=== PATIENT | male | born 1955 | race African-American/Black ===

== ENCOUNTER 2019-11-23 08:15 | Inpatient (IN) | payer OTHER ==
[2019-11-23 08:34] LABS: Actual Bicarbonate (HCO3a) 21.5 mEq/L (22-28); Analyzer IN Cardio ER; Base Excess (BEa) -5.6 mEq/L (-2.0 to +3.0); CO2 Tension 47.5 mmHg (35.0-45.0); Calcium, Ionized (arterial) 1.22 mmol/L (1.12-1.30); Hemoglobin (Hb) 16.6 g/dL (14.0-18.0); Potassium - ABG Lab 3.45 mmol/L (3.70-5.30); pH, Arterial 7.27 (7.35-7.45)
[2019-11-23 08:35] LABS: ALV-art Gradient 305.425 (0-20); Puncture Site RBA
[2019-11-23] MEDS ORDERED: fentaNYL Citrate/PF 2,000 MCG in Sodium Chloride 0.9% 60 ML IV SCH (08:53)
[2019-11-23] MEDS ORDERED: Aspirin 300 MG Suppository ONE (08:55)
[2019-11-23] MEDS ORDERED: Heparin 25,000 units/D5W 500 ML ONE (08:55)
--- NOTE | 2019-11-23 09:07 | RAD ---
PORTABLE CHEST: Date: 11/23/2019 PROVIDED CLINICAL HISTORY: Chest pain. FINDINGS: Comparison made with study dated 11/23/2019 at 0657 hours. Interval placement of enteric catheter, tip of which terminates over the left upper quadrant. Endotra cheal tube persists, tip in the region of the thoracic inlet. Heart and mediastinal contours are unch anged. No focal consolidation, pleural fluid, or pneumothorax apparent, with limitations due to the s upine nature of the study. IMPRESSION: Interval placement of enteric catheter as above. POS: KAYLA
[2019-11-23 09:46] LABS: Bilirubin Negative (Negative); Blood, Urine 2+ (Negative); Clarity Turbid (Clear); Glucose, Urine (Dipstick) 150 mg/dL (Negative); Ketone, Urine Negative (Negative); Leukocyte Negative Leu/uL (Negative); Nitrite Negative (Negative); Protein, Urine (Dipstick) 300 mg/dL (Neg-Trace); RBC/HPF Greater than 50 HPF (0-3); Specific Gravity, Urine 1.015 (1.002-1.036); Squamous Epithelial 0-3 HPF (0-3); Urobilinogen Normal mg/dL (Less than 2); WBC/HPF 21-50 HPF (0-3)
[2019-11-23 09:54] LABS: Bacteria/HPF 2+ HPF (None Seen)
[2019-11-23 09:55] LABS: Sperm/HPF 2+ HPF (None Seen)
[2019-11-23] MEDS ORDERED: Aggrastat 12.5 MG/250 ML 250 ML ONE (10:34)
[2019-11-23] MEDS ORDERED: Furosemide 40 MG/4 ML VIAL ONE (10:34)
[2019-11-23] MEDS ORDERED: Iopamidol 370 76% 50 ML VIAL FS ONE (11:20)
[2019-11-23] MEDS ORDERED: Iopamidol 370 76% 100 ML VIAL ONE (11:20)
[2019-11-23] MEDS ORDERED: Nitroglycerin 0.4 MG TAB (25 Tab Bottle) SL PRN (11:40)
[2019-11-23] MEDS ORDERED: Aggrastat 12.5 MG/250 ML 250 ML IVPB SCH (11:45)
[2019-11-23] MEDS ORDERED: TICAGRELOR 90 MG TABLET PO SCH ×2 (11:45→21:00)
[2019-11-23] MEDS ORDERED: Potassium Chloride 10 MEQ in Premix Bag 1 BAG IVPB SCH (12:00)
[2019-11-23] MEDS ORDERED: TICAGRELOR 90 MG TABLET ONE (12:04)
[2019-11-23] MEDS ORDERED: Ondansetron PF 4 MG/2 ML Vial IVP PRN (12:21)
[2019-11-23] MEDS ORDERED: Senokot S 8.6-50 MG TAB PO PRN (12:21)
[2019-11-23] MEDS ORDERED: Acetaminophen 650 MG Suppository PR PRN (12:21)
[2019-11-23] MEDS ORDERED: HYDROcodone/Acetaminophen 5/325 mg Tablet PO PRN (12:21)
[2019-11-23] MEDS ORDERED: Bisacodyl 10 MG SUPP PR PRN (12:21)
[2019-11-23] MEDS ORDERED: Ventilator Sedation Protocol 1 EACH FS ONE (12:24)
[2019-11-23] MEDS ORDERED: Electrolyte Replacement Protoc 1 EACH EACH FS PRN (12:24)
[2019-11-23] MEDS ORDERED: Dextrose 50% Abboject 50 ML SYRINGE SLOW IVP PRN (12:25)
[2019-11-23] MEDS ORDERED: Dextrose 5% in Water 1,000 ML IV PRN (12:25)
[2019-11-23] MEDS ORDERED: HumaLOG 300 UNITS/3 ML VIAL SC PRN ×2 (12:25)
--- NOTE | 2019-11-23 12:27 | CON ---
DATE OF CONSULTATION: INDICATION FOR ADMISSION: Acute myocardial infarction. HISTORY OF PRESENT ILLNESS: Mr. Angelo Johnson is a 64-year-old gentleman that I originally saw back in 2017, at which time he presented to the emergency room with a isz-AS-wqltyyq elevation myocardial infarction. He underwent cardiac catheterization at that time, was found to have severe 3-vessel coronary artery disease and left main stenosis. He underwent bypass surgery by Dr. Olguin with a ORELLANA to the left anterior descending artery and saphenous vein graft to the obtuse marginal branch of the left circumflex, also to the distal right coronary artery and to the PDA. The distal right coronary artery and PDA had one proximal anastomosis off the aorta and the PDA was piggybacked off the distal right coronary artery graft. It was noted at the time of the operation that the saphenous vein grafts were small vessels. Since that time he has not been seen by us. He has been followed by the [place] and has not returned for followup from our standpoint, but [facility] I talked to his . Actually this morning, he woke his around 6 a.m. this morning complaining of chest pain. She took him to the emergency room in [place] where he subsequently went into ventricular fibrillation, required resuscitation, was intubated and is now here in our facility. He is intubated, sedated, and the information is obtained from the old records, as well as from speaking to the . At this time, his blood pressure is 108/61, heart rate is 75, O2 saturation 97%, respiratory rate is 18 on the ventilator. He was trying to override the ventilator earlier and was given some sedation, now has been given Fentanyl. Also, in the emergency room in [place], I believe he was started on IV amiodarone due to ventricular fibrillation and also had an episode of atrial fibrillation. He has converted back to sinus rhythm. He does have a history in the past of intermittent atrial fibrillation also. Since that time, he has remained relatively stable. He has been given IV heparin here, 4000 units in the emergency room. I believe he was given also epinephrine in the emergency room in [place] as well as Atrovent. At this time, the EKG shows a sinus rhythm with a bigeminal type pattern with PVCs and some nonspecific ST-segment changes inferiorly, does not appear to be ST-segment elevation at this time, but given the fact that the patient does have severe coronary artery disease and had ventricular fibrillation, it is best to take him to the cardiac bean sprout laborer for evaluation of the coronary arteries with the bypass grafts. Also please note previously, his ejection fraction was somewhere between 35% to 40% in 2017, at the time of his bypass surgery, and we have had no further records since that time. We will try to obtain records from the IN in [place]. PAST MEDICAL HISTORY: Significant for hypertension, dyslipidemia, gastroesophageal reflux disease, obstructive sleep apnea, supposedly wears a CPAP mask. He has obesity. He has had a benign cyst removal of the left hand over 25 years ago. He has had bypass surgery with severe coronary artery disease. Also noted was elevated blood sugars. ALLERGIES: NONE. SOCIAL HISTORY: He did not smoke, however he did have a history of secondhand smoke exposure. He had occasional alcohol use. FAMILY HISTORY: Noncontributory for any early heart disease. REVIEW OF SYSTEMS: Unobtainable. When I spoke to the as previously said, he had not had any recent problems, any GI problems, nausea, vomiting, diarrhea, or any blood anywhere or hematemesis. He has had no pulmonary complaints as far as she is concerned. He does have some reflux. He does have occasional cough which he says is related to the reflux and had no other significant complaints. MEDICATION LIST: Prior to admission, he was taking 1. Aspirin 81 mg a day. 2. Atorvastatin 80 mg a day. 3. He uses fluticasone nasal spray. 4. Furosemide 20 mg once a day. 5. Loratadine 10 mg once a day. 6. Metoprolol 25 mg half a tab twice a day. 7. Pantoprazole 40 mg a day. 8. Potassium 20 mEq once a day. PHYSICAL EXAMINATION: GENERAL: Reveals a sedated elderly gentleman who is on the ventilator. VITAL SIGNS: Blood pressure is 108/61. Please note, previously in [place], the blood pressure was listed as 168/107, heart rate is now 75, respiratory rate is 18, O2 saturations more than 75%. HEENT: Show the head to be normocephalic and atraumatic. I do not hear any significant bruits at this time. However, there is increased noise from the airways and the ventilator, making this certainly almost impossible to listen to the carotid arteries. CHEST: He has some scattered rales anteriorly, but this may be upper airway noise. He has good air flow. CARDIOVASCULAR: Heart sounds are somewhat distant. I cannot hear any significant murmurs, heaves, thrills, bruits, or rubs. He has a well-healed midline surgical incision after median sternotomy. ABDOMEN: I do not feel any palpable masses. Positive bowel sounds are present. EXTREMITIES: Show no clubbing, cyanosis, or edema. I cannot palpate pedal pulses. Popliteal pulses were present. NEUROLOGIC: Again, the patient is sedated. LABORATORY DATA: Show a sodium of 141, potassium 3.3, bicarb is 14, chloride was 106, BUN 14, creatinine 2.02, his blood sugar was 202. WBC of 13.5, platelet count 211, hemoglobin 15.2. INR is 1.1. His CK was 542 with MB of 15.5, and troponin I was 0.072. EKG as noted above. Chest x-ray does not show any acute changes, perhaps some mild congestion, but otherwise there were no significant effusions or masses noted in the chest x-ray by my interpretation. Does appear to be some cardiomegaly and there is evidence of previous bypass surgery. IMPRESSION: 1. At this time, elderly gentleman with a history of severe 3-vessel coronary artery disease and left main stenosis, who underwent bypass surgery in 2017. He has been followed by the [place], but we have not seen this gentleman since his bypass surgery after he was discharged from the hospital. He has been followed by at [facility]. At this time, in the best interest of the patient probably to proceed with cardiac catheterization for full evaluation of the coronary arteries to determine whether or not there is any graft's closure or any further progression of disease or stenosis that may be correctable by angioplasty or stent placement. If not, the patient will be continued on medical management. I did discuss this issue with his and explained to her that he does have renal insufficiency and cardiac catheterization could cause renal failure, which would further necessitate dialysis, but I explained to her the procedure and the risks to include bleeding, infection, possible myocardial infarction, cerebrovascular accident, renal insufficiency, allergic contrast reaction, even the possibility of and she understands. We will need to proceed with the cardiac catheterization in rather urgent basis. 2. History of hypertension. Blood pressure was high earlier this morning, but after being given Propofol here in the emergency room and other medications, his blood pressure is now 108/61. 3. Dyslipidemia. He has been on statins. We will continue these medications once we have finished cardiac catheterization. 4. Gastroesophageal reflux disease. He has also been on H2 blockers. We will continue these medications. We will need to determine whether or not he continues to use his CPAP mask for his obstructive sleep apnea. 5. Obesity. 6. Chronic kidney disease with a creatinine of 2.02 today. We will certainly need to monitor this very carefully and may need to have a renal consult. 7. History of coughing, most likely associated with gastroesophageal reflux disease. 8. History of cardiomyopathy in the past. We will need to evaluate his left ventricular systolic function at the cardiac catheterization or by echocardiogram after the procedure. At this time, we will continue with the plan for urgent cardiac catheterization. Job ID: [id number]
[2019-11-23] MEDS ORDERED: Morphine 2 MG/ML VIAL SLOW IVP PRN (12:35)
[2019-11-23] MEDS ORDERED: Propofol 1,000 MG/100 ML VIAL IV PRN (12:35)
[2019-11-23] MEDS ORDERED: Propofol BOLUS 1,000 MG/100 ML VIAL IV PRN (12:35)
[2019-11-23] MEDS ORDERED: DISCONTINUE PREVIOUS NARCOTIC PAIN MEDICATIONS AND BENZODIAZEPINES FS SCH (12:35)
[2019-11-23] MEDS ORDERED: Fentanyl BOLUS 250 ML IVPB PRN (12:35)
--- NOTE | 2019-11-23 13:36 | CON ---
DATE OF CONSULTATION: HISTORY OF PRESENT ILLNESS: Mr. Johnson is a 64-year-old with history of coronary artery bypass grafting. He apparently arrested in [place], was transferred here. He is undergoing emergent cath. I was consulted for assist in his management in the Critical Care Unit. He was examined in the recovery room. Hemodynamics postcatheterization were stable at the time of exam. PAST MEDICAL HISTORY: Remarkable for, 1. An ischemic cardiomyopathy with ejection fraction in 2017 at 35% to 40%. 2. History of hypertension. 3. Lipid disorder. 4. Reflux disease. 5. Sleep apnea. 6. History of hand surgery for cyst 25 years ago. 7. History of coronary artery bypass grafting. 8. Diabetes. SOCIAL HISTORY: He is a nonsmoker and nondrinker. ALLERGIES: HE HAS NO DRUG ALLERGIES. FAMILY HISTORY: Negative for lung disease in early age according to old records. REVIEW OF SYSTEMS: Could not be obtained. PHYSICAL EXAMINATION: VITAL SIGNS: His blood pressure is in 120 range. Heart rate, he is in sinus rhythm. Respiratory rate is per mechanical ventilation. HEENT: Pupils react. Sclerae are anicteric. NECK: Supple. LUNGS: Clear. HEART: Regular rhythm. S1 and S2 are normal. ABDOMEN: Soft and nontender. EXTREMITIES: Without clubbing, cyanosis or edema. DIAGNOSTIC DATA: Chest x-ray today showed no infiltrates. IMPRESSION: Status post cardiac arrest secondary to coronary artery disease, now status post emergent cardiac catheterization with stenting. PLAN: Mechanical ventilation until we determine what his neurological status will be. This may take several days. CRITICAL CARE TIME: 30 minutes. Job ID: [id number]
[2019-11-23] MEDS ORDERED: Propofol 1,000 MG/100 ML VIAL IV ONE (13:56)
[2019-11-23 14:20] LABS: Troponin I 1.222 ng/mL (< 0.028)
--- NOTE | 2019-11-23 15:01 | CON ---
DATE OF CONSULTATION: 11/23/2019 ADDENDUM: Please note, the patient arrived to the emergency room, and after evaluation and discussion with the who decided to take the patient to the cardiac orthodontic lab technician. There was some delay in getting the patient to the cardiac orthodontic lab technician as there was a patient already on the table and there was no other cardiac staff available at the time to run 2 rooms. We also then had to wait for anesthesia as there were 2 codes going on in the intensive care unit. The patient had already been intubated and there was no one to run the anesthesia or the ventilator for the patient. All this required some time in getting the patient to the cardiac orthodontic lab technician. Once he arrived in the cardiac orthodontic lab technician, we proceeded with cardiac catheterization and intervention. He was found to have a totally occluded right saphenous vein graft, which was opened. The other vessel showed diffuse disease and also the ejection fraction also was severely compromised. Job ID: [id number]
[2019-11-23] MEDS ORDERED: Furosemide 20 MG/2 ML VIAL ONE (15:10)
--- NOTE | 2019-11-23 19:53 | HP ---
REASON FOR ADMISSION: Status post cardiac arrest; coronary artery disease, status post catheterization with stenting; acute respiratory failure with hypoxia. HISTORY OF PRESENTING ILLNESS: The patient initially was taken to [facility] Emergency Room after the patient woke his with chest pain. They apparently were at the emergency room at around 6:15 a.m. Within 30 minutes or so, the patient had a code blue with cardiac arrest with the patient going into V-tach, VFib. CPR was initiated for around 15 minutes or so. He was administered two shocks and epi. Eventually circulation was established and got intubated. EKG done prior to cardiac arrest showed T inversion in the lateral leads V4, V5, V6. Post cardiac arrest , the patient has had T inversions in the same leads along with V1, V2, V3. He has had frequent PVCs. On arrival here, the patient has had consultation with Dr. Varghese in the ER and was taken for cardiac cath. He was found to have totally occluded right saphenous vein graft, which was opened. The other vessel showed diffuse disease , and ejection fraction was also severely compromised. His official cath report is pending. I am seeing the patient after he has had cardiac catheterization and is currently in PACU, awaiting a bed in ICU. In the morning after cardiac arrest, the patient was given amiodarone 300 mg IV push, then was placed on a drip. He has also had 2 doses of magnesium sulfate IV given. Currently, he is intubated and is sedated. PAST MEDICAL AND SURGICAL HISTORY: History of CABG done in 2017, hypertension, dyslipidemia, GERD, obstructive sleep apnea, obesity, prior stent prior to CABG , and a benign cyst removed from his left hand 23 years back. CURRENT MEDICATIONS: Unclear as he was discharged on the following medications after he has had CABG in August 2016. He was sent home on: 1. Lipitor. 2. Plavix. 3. Protonix. 4. Aspirin 81 mg daily. 5. Carvedilol 6.25 mg twice daily. 6. Lasix 20 mg daily. 7. K-Dur 10 mEq p.o. daily then. We will try to obtain accurate med list from his . ALLERGIES: NO KNOWN DRUG ALLERGIES. PERSONAL HISTORY: Per prior records, he does not smoke. Occasionally drinks alcohol. Lives with his . FAMILY HISTORY: There is a sister who has had history of breast cancer. Father had history of stomach cancer. CODE STATUS: Presumed to be full at present. We will address this once the arrives and the patient wakes up. REVIEW OF SYSTEMS: Cannot be obtained as the patient is currently sedated and is on ventilator. PHYSICAL EXAMINATION: GENERAL: The patient is a 64-year-old male who is currently on the ventilator and is not in any distress. VITAL SIGNS: On the arterial line, the patient's blood pressure is 110/74, pulse 60 per minute, respiratory rate 16 per minute, saturating 100% on 60% FiO2 on the ventilator. NECK: Supple. No elevated JVD. HEENT: Eyes, pupils are 3 mm, very sluggishly reacting to light. Oral cavity, the patient is orally intubated up to 25 cm up to the incisor. CARDIOVASCULAR: S1 and S2 heard. Regular rhythm. RESPIRATORY: Air entry 1+ bilateral. Scattered rhonchi plus. ABDOMEN: Soft. Bowel sounds heard. No tenderness, rigidity, or guarding. EXTREMITIES: No peripheral edema or calf tenderness. VASCULAR SYSTEM: Peripheral pulses 1+ bilateral. No ischemic ulcerations or gangrene. CENTRAL NERVOUS SYSTEM: No obvious focal deficits noted. PSYCHIATRIC: Cannot be assessed as the patient is currently intubated and sedated. LABORATORY DATA: White count of 13, H and H of 15 and 49, platelet count 211 with 24% neutrophils, 66% lymphocytes. MCV is 99. PT, INR, PTT within normal limits. Blood gas done at 8:28 a.m. shows a pH of 7.27, pCO2 47, pO2 60. Serum bicarb was 14, potassium 3.3, BUN 14, creatinine 2, serum glucose 202. AST 91, ALT 51, alkaline phosphatase 94. CK levels 542. Troponin I peaked up to 0.15, CK-MB 15. Albumin is 3.6. DIAGNOSTIC STUDIES: EKG done at 6:26 a.m. shows sinus rhythm at 99 beats with frequent PVCs. There is T-wave inversion in V4, V5, V6. A repeat EKG done post cardiac arrest at 8:21 a.m. shows sinus rhythm at 83 beats per minute with T inversions seen in anterolateral leads. QRS duration is 114 milliseconds, corrected QT is 444 milliseconds. Chest x-ray done at 8:24 a.m. shows endotracheal tube in appropriate position. CLINICAL IMPRESSION AND PLAN: The patient will be admitted to intensive care unit, status post cardiac arrest with coronary reperfusion with cardiac catheterization done by Dr. Varghese. He has had coronary artery bypass graft done in 2017 and has had occlusion of vessels including grafts. Likely, the patient is noncompliant with medication and diet. He is currently on aspirin, Lipitor, Lasix, small dose of Lopressor, and Brilinta. He has a central line and arterial line as well. Echo with 2D Doppler has been ordered. I have spoken to Dr. Nuno for pulmonary consultation as well. We will continue to closely monitor him in intensive care unit. We will also continue his amiodarone drip. Likely, the patient might need a biventricular pacer with automatic implantable cardioverter-defibrillator in view of sudden cardiac arrest with ischemic coronary artery disease. We will await echo with 2D Doppler for left ventricular function as well. Job ID: [id number] MTDD
[2019-11-23] MEDS: Furosemide 20 MG/2 ML VIAL SLOW IVP SCH (19:57)
[2019-11-23] MEDS: Atorvastatin Calcium 40 MG TAB PO SCH (21:16)
[2019-11-23] MEDS: TICAGRELOR 90 MG TABLET PO SCH (21:17)
[2019-11-23] MEDS: Famotidine/PF 20 mg/2ml Vial SLOW IVP SCH (21:17)
[2019-11-23] MEDS: Metoprolol Tartrate 25 MG TAB PO SCH (21:17)
[2019-11-24] MEDS: Amiodarone 450 MG in Dextrose 5% in Water 250 ML IVPB SCH ×2 (00:03→16:30)
[2019-11-24] MEDS: fentaNYL Citrate/PF 2,000 MCG in Sodium Chloride 0.9% 60 ML IV SCH (02:47)
[2019-11-24 04:00] LABS: Band 1 % (5-11); Eosinophils 1 % (0-10); Hemoglobin 14.2 g/dL (14.0-18.0); Lymphocytes 23 % (21-51); MDiff Complete? YES; Mean Corpuscular HGB CONC 32.3 g/dL (32.0-36.0); Mean Corpuscular Hemoglobin 31.1 pg (27.0-31.0); Mean Corpuscular Volume 96.2 fL (78.0-98.0); Mean Platelet Volume 8.9 fL (7.4-10.4); Monocytes 9 % (0-10); Neutrophil 66 % (42-75); Platelet Count 198 thou/uL (130-400); Platelet Morphology Comment Appears Adequate; RBC Distribution Width 12.3 % (11.5-14.5); Red Blood Cell (RBC) Count 4.58 mill/uL (4.70-6.10); White Blood Cell (WBC) Count 10.3 thou/uL (4.8-10.8)
[2019-11-24 04:10] LABS: ALT (SGPT) 56 U/L (8-55); AST (SGOT) 55 U/L (5-34); Albumin 3.3 g/dL (3.4-4.8); Alkaline Phosphatase 93 U/L (40-110); Anion Gap 11 mmol/L (10-20); BUN (Urea Nitrogen) 20 mg/dL (8.4-25.7); Bilirubin, Total 0.6 mg/dL (0.2-1.2); Calc. Creatinine Clearance 43 mL/min (70-130); Calcium 8.5 mg/dL (7.8-10.44); Carbon Dioxide 25 mmol/L (23-31); Cardiac Risk 4.3 (Less than 4.5); Chloride 107 mmol/L (98-107); Cholesterol 187 mg/dl (< 200 Desired); Estimated GFR-MDRD 34; Globulin 3.1 g/dL (2.4-3.5); Glucose 108 mg/dL (80-115); HDL Cholesterol 44 mg/dL (>60 Neg Risk); LDL Cholesterol, Calculated 101 mg/dL; Potassium 4.2 mmol/L (3.5-5.1); Protein, Total 6.4 g/dL (5.8-8.1); Sodium 139 mmol/L (136-145); Triglycerides 210 mg/dL (Less than 150)
[2019-11-24] MEDS: Furosemide 20 MG/2 ML VIAL SLOW IVP SCH ×2 (06:04→14:44)
[2019-11-24 07:20] LABS: Base Excess (BEa) -1.5 mEq/L (-2.0 to +3.0); CO2 Tension 33.8 mmHg (35.0-45.0); Calcium, Ionized (arterial) 1.13 mmol/L (1.12-1.30); Carboxyhemoglobin (COHb) 0.3 gm% (0.0-3.0); Hemoglobin (Hb) 15.2 g/dL (14.0-18.0); O2 Tension (PaO2), arterial 77.7 mmHg (> 80.0); Potassium - ABG Lab 3.76 mmol/L (3.70-5.30); pH, Arterial 7.43 (7.35-7.45)
[2019-11-24 07:21] LABS: Puncture Site ALINE
--- NOTE | 2019-11-24 08:33 | RAD ---
PORTABLE CHEST: DAET: 11/24/2019. PROVIDED CLINICAL HISTORY: Respiratory insufficiency. FINDINGS: Development of focal, wedge-shaped parenchymal opacity in the right suprahilar region, presumably ref lecting subsegmental atelectasis. Interval placement of right subclavian central line, the tip of wh ich projects over the expected location of RA. Additional significant interval change with respect t o the prior examination is not apparent. IMPRESSION: As above. POS: KAYLA
[2019-11-24] MEDS ORDERED: Aspirin 325 mg Enteric Coated Tablet PO SCH (09:00)
[2019-11-24] MEDS: Metoprolol Tartrate 25 MG TAB PO SCH ×2 (09:17→20:39)
[2019-11-24] MEDS: Famotidine/PF 20 mg/2ml Vial SLOW IVP SCH ×2 (09:18→20:39)
[2019-11-24] MEDS: TICAGRELOR 90 MG TABLET PO SCH ×2 (09:18→20:38)
[2019-11-24] MEDS: Lorazepam 2 MG/ML VIAL SLOW IVP PRN ×2 (12:20→17:34)
--- NOTE | 2019-11-24 13:03 | PDOC.HOSPP ---
- Subjective Encounter Date: 11/24/19 Encounter Time: 11:15 Subjective: is on vent follows verbal stimuli is moving all extremities - Objective Vital Signs & Weight: Vital Signs (12 hours) Temp Pulse Resp 11/24/19 10:00 16 11/24/19 09:59 83 11/24/19 08:00 99.0 F 16 11/24/19 07:45 79 11/24/19 06:00 18 11/24/19 04:00 99.1 F 18 11/24/19 02:00 18 Weight Admit Weight 213 lb Weight 213 lb 10.047 oz Most Recent Monitor Data Heart Rate from ECG 75 NIBP 81/62 NIBP BP-Mean 68 Respiration from ECG 12 SpO2 100 I&O: 11/23/19 11/24/19 11/25/19 06:59 06:59 06:59 Intake Total 652.8 Output Total 600 850 Balance 52.8 -850 Result Diagrams: 11/24/19 03:27 11/24/19 03:27 Additional Labs: Accuchecks 11/24/19 11/23/19 11/23/19 03:34 22:32 19:14 POC Glucose 105 122 H 115 H Hospitalist ROS - Medication Medications: Active Medications Generic Name Dose Route Start Last Admin Trade Name Freq PRN Reason Stop Dose Admin Atorvastatin Calcium 80 mg 11/23/19 21:00 11/23/19 21:16 Lipitor PO 80 mg HS KETAN Administration Famotidine 20 mg 11/23/19 21:00 11/24/19 09:18 Pepcid SLOW IVP 20 mg Q12HR KETAN Administration Furosemide 20 mg 11/23/19 14:00 11/24/19 06:04 Lasix SLOW IVP 20 mg 0600,1400 KETAN Administration Tirofiban/Sodium Chloride 250 mls @ 0 mls/hr 11/23/19 11:45 11/23/19 19:43 Aggrastat 12.5 Mg/250 Ml IVPB 250 mls INF KETAN Administration Protocol As Directed Amiodarone HCl 450 mg/ 259 mls @ 0 mls/hr 11/23/19 12:15 11/24/19 00:03 Dextrose/Water IVPB 259 mls INF KETAN Administration Protocol Per Protocol Fentanyl Citrate 2,000 mcg/ 100 mls @ 0 mls/hr 11/23/19 12:35 11/24/19 02:47 Sodium Chloride IV 12/23/19 12:35 100 mls INF KETAN Administration Protocol Per Protocol Lorazepam 2 mg 11/23/19 12:35 11/24/19 12:20 Ativan SLOW IVP 12/23/19 12:35 2 mg Q1H PRN Administration Breakthrough agitation Metoprolol Tartrate 12.5 mg 11/23/19 21:00 11/24/19 09:17 Lopressor PO 12.5 mg BID KETAN Administration Propofol 1,000 mg 11/23/19 12:35 11/24/19 00:03 Diprivan IV 12/23/19 12:35 1,000 mg INF PRN Administration TO ACHIEVE GOAL RASS Protocol Ticagrelor 90 mg 11/23/19 21:00 11/24/19 09:18 Brilinta PO 90 mg BID KETAN Administration - Exam General Appearance: ill appearing Eye: PERRL, anicteric sclera ENT: no oropharyngeal lesions, dry oral mucosa Neck: supple, no JVD Heart: RRR, no murmur Respiratory: no wheezes, no rales, rhonchi Gastrointestinal: soft, non-tender, non-distended, normal bowel sounds Extremities: no cyanosis, 1+ LE edema Neurological: cranial nerve grossly intact, no focal deficits Hosp A/P (1) NSTEMI (non-ST elevated myocardial infarction) Code(s): I21.4 - NON-ST ELEVATION (NSTEMI) MYOCARDIAL INFARCTION Status: Acute (2) Acute respiratory failure with hypoxia Code(s): J96.01 - ACUTE RESPIRATORY FAILURE WITH HYPOXIA Status: Acute (3) Sudden cardiac arrest Code(s): I46.9 - CARDIAC ARREST, CAUSE UNSPECIFIED Status: Acute (4) Afib Code(s): I48.91 - UNSPECIFIED ATRIAL FIBRILLATION Status: Acute Qualifiers: Atrial fibrillation type: paroxysmal Qualified Code(s): I48.0 - Paroxysmal atrial fibrillation (5) Dyslipidemia Code(s): E78.5 - HYPERLIPIDEMIA, UNSPECIFIED Status: Chronic (6) Hypertension Code(s): I10 - ESSENTIAL (PRIMARY) HYPERTENSION Status: Chronic Qualifiers: Hypertension type: essential hypertension Qualified Code(s): I10 - Essential (primary) hypertension - Plan hemostable follows verbal stimuli, is trying to move all extremities weaning per pulm advice s/p stent placed yesterday to rca h/o cabg in 2016 remove arterial line if ok with await echo results will likely need aicd/sales and service change leader
--- NOTE | 2019-11-24 20:22 | PRG ---
DATE OF SERVICE: 11/24/2019 SUBJECTIVE: Mr. Johnson will awake and weakly follow commands. His ventilatory rate was decreased this morning. His pressure support was decreased. Chest radiograph showed a very subsegmental atelectasis in his right upper lobe. He had no pulmonary edema. An echocardiogram was done, which showed an ejection fraction of 10% to 15%. OBJECTIVE: LUNGS: Clear anteriorly. HEART: Regular rhythm. ABDOMEN: Soft. LABORATORY DATA: White count 10.3, hemoglobin 14.2, platelets 198. Sodium 139, potassium 4.2, chloride 107, bicarb 25, BUN 20, creatinine 2.37. Creatinine was 1.55 in May. IMPRESSION: 1. Status post emergent cardiac catheterization after cardiac arrest. 2. Severe systolic cardiomyopathy. 3. Coronary artery disease, status post stenting. 4. Sucqd-nf-olnastg kidney disease, likely to decline before his renal function improves. 5. Respiratory failure. We decreased ventilatory support, but I would not recommend extubation today. CRITICAL CARE TIME: 30 minutes. Job ID: [id number]
[2019-11-24] MEDS: Atorvastatin Calcium 40 MG TAB PO SCH (20:38)
--- NOTE | 2019-11-24 20:41 | RAD ---
EXAM: CHEST ONE VIEW HISTORY: Newly developed fever. COMPARISON: 11/24/2019 at 0452 hours FINDINGS: Lines and tubes remain stable in position. Median sternotomy wires are again seen. Cardiac silhouette is enlarged. Pulmonary vasculature is within normal limits. Wedge-shaped parenchymal opacity in the right upper lung zone and suprahilar region is again seen which again may be reflective of subseg mental atelectasis. Lungs are otherwise clear. Chest is stable when compared to the prior exam. IMPRESSION: Stable chest including stable parenchymal opacity in the right midlung zone which again may represent subsegmental atelectasis. Continued follow-up is recommended.
[2019-11-24] MEDS: Acetaminophen 325 MG TAB PO PRN (20:42)
[2019-11-24] MEDS: Piperacillin/Tazobactam 4.5 GM in Sodium Chloride 0.9% 100 ML IVPB SCH (21:38)
[2019-11-24] MEDS ORDERED: Vancomycin 1.5 GRAM/300 ML BAG 1.5 GM in Premix Bag 1 BAG IVPB SCH (22:30)
[2019-11-24] MEDS: Norepinephrine 8 MG/0.9% NS 250 ML IVPB SCH (22:43)
[2019-11-24 23:05] LABS: Band 11 % (5-11); Hemoglobin 14.3 g/dL (14.0-18.0); Lymphocytes 10 % (21-51); MDiff Complete? YES; Mean Corpuscular Hemoglobin 32.3 pg (27.0-31.0); Mean Corpuscular Volume 97.8 fL (78.0-98.0); Mean Platelet Volume 9.2 fL (7.4-10.4); Monocytes 4 % (0-10); Neutrophil 75 % (42-75); Platelet Count 172 thou/uL (130-400); RBC Distribution Width 12.1 % (11.5-14.5); Red Blood Cell (RBC) Count 4.43 mill/uL (4.70-6.10); White Blood Cell (WBC) Count 16.1 thou/uL (4.8-10.8)
[2019-11-24 23:07] LABS: Anion Gap 14 mmol/L (10-20); BUN (Urea Nitrogen) 25 mg/dL (8.4-25.7); Calc. Creatinine Clearance 35 mL/min (70-130); Calcium 8.4 mg/dL (7.8-10.44); Carbon Dioxide 24 mmol/L (23-31); Chloride 106 mmol/L (98-107); Estimated GFR-MDRD 27; Glucose 110 mg/dL (80-115); Potassium 4.6 mmol/L (3.5-5.1); Sodium 139 mmol/L (136-145)
[2019-11-25] MEDS: fentaNYL Citrate/PF 2,000 MCG in Sodium Chloride 0.9% 60 ML IV SCH (00:15)
[2019-11-25] MEDS: Acetaminophen 325 MG TAB PO PRN ×3 (04:08→19:35)
[2019-11-25 04:45] LABS: Anion Gap 13 mmol/L (10-20); BUN (Urea Nitrogen) 26 mg/dL (8.4-25.7); Calc. Creatinine Clearance 38 mL/min (70-130); Calcium 8.8 mg/dL (7.8-10.44); Carbon Dioxide 24 mmol/L (23-31); Chloride 108 mmol/L (98-107); Estimated GFR-MDRD 29; Glucose 111 mg/dL (80-115); Magnesium 2.5 mg/dL (1.6-2.6); Potassium 4.4 mmol/L (3.5-5.1); Sodium 141 mmol/L (136-145)
[2019-11-25 05:12] LABS: Band 10 % (5-11); Hemoglobin 13.8 g/dL (14.0-18.0); Lymphocytes 10 % (21-51); MDiff Complete? YES; Mean Corpuscular HGB CONC 32.3 g/dL (32.0-36.0); Mean Corpuscular Hemoglobin 31.5 pg (27.0-31.0); Mean Corpuscular Volume 97.5 fL (78.0-98.0); Mean Platelet Volume 9.5 fL (7.4-10.4); Monocytes 8 % (0-10); Neutrophil 71 % (42-75); Platelet Count 178 thou/uL (130-400); Platelet Morphology Comment Appears Adequate; RBC Distribution Width 12.2 % (11.5-14.5); Reactive Lymphocytes 1 % (0-10); White Blood Cell (WBC) Count 18.7 thou/uL (4.8-10.8)
[2019-11-25] MEDS: Piperacillin/Tazobactam 4.5 GM in Sodium Chloride 0.9% 100 ML IVPB SCH ×3 (05:16→21:31)
[2019-11-25] MEDS: Furosemide 20 MG/2 ML VIAL SLOW IVP SCH ×2 (06:38→14:10)
[2019-11-25] MEDS: Amiodarone 450 MG in Dextrose 5% in Water 250 ML IVPB SCH ×2 (06:39→20:28)
[2019-11-25 07:47] LABS: Actual Bicarbonate (HCO3a) 22.2 mEq/L (22-28); Base Excess (BEa) -2.9 mEq/L (-2.0 to +3.0); CO2 Tension 39.9 mmHg (35.0-45.0); Calcium, Ionized (arterial) 1.17 mmol/L (1.12-1.30); Carboxyhemoglobin (COHb) 0.5 gm% (0.0-3.0); Hemoglobin (Hb) 14.3 g/dL (14.0-18.0); O2 Tension (PaO2), arterial 84.8 mmHg (> 80.0); Potassium - ABG Lab 4.06 mmol/L (3.70-5.30); pH, Arterial 7.36 (7.35-7.45)
[2019-11-25 08:20] LABS: Puncture Site RRAD
[2019-11-25 08:22] LABS: ALV-art Gradient 150.525 (0-20)
--- NOTE | 2019-11-25 08:35 | RAD ---
PORTABLE CHEST: DATE: 11/25/2019. PROVIDED CLINICAL HISTORY: Respiratory insufficiency. FINDINGS: Comparison 11/24/2019. Significant interval change with respect to the prior examination is not appare nt. IMPRESSION: As above. POS: KAYLA
[2019-11-25] MEDS: TICAGRELOR 90 MG TABLET PO SCH ×2 (09:38→20:08)
[2019-11-25] MEDS: Famotidine/PF 20 mg/2ml Vial SLOW IVP SCH ×2 (09:38→20:08)
[2019-11-25] MEDS: Aspirin 81 mg Enteric Coated Tablet PO SCH (09:38)
[2019-11-25] MEDS: Metoprolol Tartrate 25 MG TAB PO SCH (09:38)
--- NOTE | 2019-11-25 13:59 | PDOC.HOSPP ---
- Subjective Encounter Date: 11/25/19 Encounter Time: 08:45 Subjective: is on vent, follows verbal stimuli, on mild sedation - Objective Vital Signs & Weight: Vital Signs (12 hours) Temp Pulse Resp Pulse Ox 11/25/19 12:00 17 11/25/19 11:00 101 F H 11/25/19 10:10 70 11/25/19 10:00 19 11/25/19 08:23 72 11/25/19 08:00 17 11/25/19 07:38 100 11/25/19 07:00 100.7 F H 11/25/19 06:00 14 11/25/19 04:00 101.3 F H 25 H 11/25/19 03:00 82 11/25/19 02:00 17 Weight Admit Weight 213 lb Weight 214 lb 1.102 oz Most Recent Monitor Data Heart Rate from ECG 68 NIBP 94/70 NIBP BP-Mean 78 Respiration from ECG 25 SpO2 100 I&O: 11/24/19 11/25/19 11/26/19 06:59 06:59 06:59 Intake Total 652.8 1451 Output Total 600 8890 795 Balance 52.8 -469 -795 Result Diagrams: 11/25/19 03:50 11/25/19 03:50 Additional Labs: Accuchecks 11/25/19 11/24/19 11/24/19 10:46 22:43 16:50 POC Glucose 110 111 H 112 H 11/24/19 12:14 POC Glucose 130 H Hospitalist ROS - Medication Medications: Active Medications Generic Name Dose Route Start Last Admin Trade Name Freq PRN Reason Stop Dose Admin Acetaminophen 650 mg 11/23/19 12:21 11/25/19 09:40 Tylenol PO 650 mg Q4H PRN Administration Headache/Fever/Mild Pain (1-3) Aspirin 81 mg 11/25/19 09:00 11/25/19 09:38 Ecotrin PO 81 mg DAILY KETAN Administration Atorvastatin Calcium 80 mg 11/23/19 21:00 11/24/19 20:38 Lipitor PO 80 mg HS KETAN Administration Famotidine 20 mg 11/23/19 21:00 11/25/19 09:38 Pepcid SLOW IVP 20 mg Q12HR KETAN Administration Furosemide 20 mg 11/23/19 14:00 07/05/20 06:38 Lasix SLOW IVP 20 mg 0600,1400 KETAN Administration Tirofiban/Sodium Chloride 250 mls @ 0 mls/hr 11/23/19 11:45 11/23/19 19:43 Aggrastat 12.5 Mg/250 Ml IVPB 250 mls INF KETAN Administration Protocol As Directed Amiodarone HCl 450 mg/ 259 mls @ 0 mls/hr 11/23/19 12:15 11/25/19 06:39 Dextrose/Water IVPB 259 mls INF KETAN Administration Protocol Per Protocol Fentanyl Citrate 2,000 mcg/ 100 mls @ 0 mls/hr 11/23/19 12:35 11/25/19 00:15 Sodium Chloride IV 12/23/19 12:35 100 mls INF KETAN Administration Protocol Per Protocol Dexmedetomidine HCl 400 mcg/ 100 mls @ 0 mls/hr 11/24/19 11:45 11/25/19 06:38 Sodium Chloride IVPB 100 mls INF KETAN Administration Protocol Per Protocol Piperacillin Sod/Tazobactam 100 mls @ 200 mls/hr 11/24/19 22:00 11/25/19 05: 16 Sod 4.5 gm/ Sodium Chloride IVPB 100 mls Q8HR KETAN Administration Norepinephrine Bitartrate 250 mls @ 0 mls/hr 11/24/19 22:05 11/24/19 22:43 Levophed IVPB 250 mls INF KETAN Administration Protocol Titrate Lorazepam 2 mg 11/23/19 12:35 11/24/19 17:34 Ativan SLOW IVP 12/23/19 12:35 2 mg Q1H PRN Administration Breakthrough agitation Propofol 1,000 mg 11/23/19 12:35 11/24/19 00:03 Diprivan IV 12/23/19 12:35 1,000 mg INF PRN Administration TO ACHIEVE GOAL RASS Protocol Ticagrelor 90 mg 11/23/19 21:00 11/25/19 09:38 Brilinta PO 90 mg BID KETAN Administration - Exam Eye: PERRL, anicteric sclera ENT: no oropharyngeal lesions, moist mucosa Neck: supple, no JVD Heart: RRR, no murmur Respiratory: no wheezes, no rales, rhonchi Gastrointestinal: soft, non-tender, non-distended, normal bowel sounds Extremities: no cyanosis, no edema Neurological: cranial nerve grossly intact, no focal deficits Hosp A/P (1) NSTEMI (non-ST elevated myocardial infarction) Code(s): I21.4 - NON-ST ELEVATION (NSTEMI) MYOCARDIAL INFARCTION Status: Acute (2) Acute respiratory failure with hypoxia Code(s): J96.01 - ACUTE RESPIRATORY FAILURE WITH HYPOXIA Status: Acute (3) Sudden cardiac arrest Code(s): I46.9 - CARDIAC ARREST, CAUSE UNSPECIFIED Status: Acute (4) Afib Code(s): I48.91 - UNSPECIFIED ATRIAL FIBRILLATION Status: Acute Qualifiers: Atrial fibrillation type: paroxysmal Qualified Code(s): I48.0 - Paroxysmal atrial fibrillation (5) Dyslipidemia Code(s): E78.5 - HYPERLIPIDEMIA, UNSPECIFIED Status: Chronic (6) Hypertension Code(s): I10 - ESSENTIAL (PRIMARY) HYPERTENSION Status: Chronic Qualifiers: Hypertension type: essential hypertension Qualified Code(s): I10 - Essential (primary) hypertension (7) Ischemic cardiomyopathy Code(s): I25.5 - ISCHEMIC CARDIOMYOPATHY Status: Chronic - Plan hemostable follows verbal stimuli, is trying to move all extremities weaning per pulm advice is on vanc and zosyn, morton cultures are -ve s/p stent placed yesterday to rca h/o cabg in 2017, current ef is very low at 10% 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
--- NOTE | 2019-11-25 14:36 | PRG ---
DATE OF SERVICE: 11/25/2019 SUBJECTIVE: Mr. Johnson has done well overnight. He will follow commands. He gets little agitated when he awakens. OBJECTIVE: VITAL SIGNS: Heart rates in the 60s, blood pressures in the 90s, respiratory rates in the 30s, oximetry is 100%. LUNGS: Clear. HEART: Regular rhythm. ABDOMEN: Soft. EXTREMITIES: Without edema. DIAGNOSTIC DATA: Chest x-ray is unchanged compared to yesterday. Intake and outputs negative 469. LABORATORY STUDIES: White count 18.7, hemoglobin 13.8, platelets 178,000. Sodium 141, potassium 4.4, chloride 108, bicarb 24, BUN 26, creatinine 2.68. Chest radiographs, as mentioned, remarkable for persistent patchy atelectasis in his upper lobe. He did have a temperature spiked to 101. Antimicrobial therapy has been started. Given his improving renal function, I do not feel there is justification for vancomycin at this point, so I have discontinued this, but we continue with Zosyn. Overall, he appears to be stable, but not weanable just yet. CRITICAL CARE TIME: 30 minutes. Job ID: [id number]
[2019-11-25] MEDS: Atorvastatin Calcium 40 MG TAB PO SCH (20:08)
[2019-11-25] MEDS: Lorazepam 2 MG/ML VIAL SLOW IVP PRN (20:25)
[2019-11-25] MEDS ORDERED: Vancomycin 1 GM in Premix Bag 1 BAG IVPB SCH (23:00)
[2019-11-26] MEDS: Amiodarone 450 MG in Dextrose 5% in Water 250 ML IVPB SCH ×2 (00:18→12:32)
[2019-11-26] MEDS: Norepinephrine 8 MG/0.9% NS 250 ML IVPB SCH (00:19)
[2019-11-26] MEDS: fentaNYL Citrate/PF 2,000 MCG in Sodium Chloride 0.9% 60 ML IV SCH ×2 (01:52→22:54)
[2019-11-26 05:04] LABS: Anion Gap 12 mmol/L (10-20); BUN (Urea Nitrogen) 24 mg/dL (8.4-25.7); Calc. Creatinine Clearance 47 mL/min (70-130); Carbon Dioxide 27 mmol/L (23-31); Chloride 108 mmol/L (98-107); Estimated GFR-MDRD 38; Glucose 102 mg/dL (80-115); Sodium 143 mmol/L (136-145)
[2019-11-26 05:35] LABS: Band 3 % (5-11); Eosinophils 1 % (0-10); Hemoglobin 13.3 g/dL (14.0-18.0); Lymphocytes 12 % (21-51); MDiff Complete? YES; Mean Corpuscular HGB CONC 31.7 g/dL (32.0-36.0); Mean Corpuscular Volume 97.8 fL (78.0-98.0); Mean Platelet Volume 9.6 fL (7.4-10.4); Monocytes 10 % (0-10); Myelocyte 1 % (0-0); Neutrophil 72 % (42-75); Platelet Count 162 thou/uL (130-400); RBC Distribution Width 12.1 % (11.5-14.5)
[2019-11-26] MEDS: Piperacillin/Tazobactam 4.5 GM in Sodium Chloride 0.9% 100 ML IVPB SCH (05:40)
[2019-11-26] MEDS: Furosemide 20 MG/2 ML VIAL SLOW IVP SCH ×2 (05:40→15:19)
[2019-11-26 07:20] LABS: Base Excess (BEa) -1.7 mEq/L (-2.0 to +3.0); CO2 Tension 39.3 mmHg (35.0-45.0); Calcium, Ionized (arterial) 1.19 mmol/L (1.12-1.30); Carboxyhemoglobin (COHb) 0.3 gm% (0.0-3.0); Hemoglobin (Hb) 14.5 g/dL (14.0-18.0); O2 Tension (PaO2), arterial 92.8 mmHg (> 80.0); Potassium - ABG Lab 3.85 mmol/L (3.70-5.30); Puncture Site RR; pH, Arterial 7.39 (7.35-7.45)
[2019-11-26 07:21] LABS: ALV-art Gradient 143.275 (0-20)
--- NOTE | 2019-11-26 08:28 | RAD ---
PORTABLE CHEST 1 VIEW: Date: 11/26/2019 Time: 0511 hours HISTORY: Respiratory failure. COMPARISON: Previous day. FINDINGS/IMPRESSION: There has been interval improvement in the right mid lung opacity without complete resolution. The re mainder of the exam is otherwise stable. POS: NEDA
--- NOTE | 2019-11-26 08:40 | PDOC.CPN ---
- Subjective Date: 11/26/19 Time: 08:00 Interval history: The pt seen and examined. No overnight events. on Vent with sedation. - Objective Allergies/Adverse Reactions: Allergies Allergy/AdvReac Type Severity Reaction Status Date / Time No Known Allergies Allergy Verified 08/12/19 13:32 Visit Medications: Current Medications Acetaminophen (Tylenol) 650 mg PO Q4H PRN PRN Reason: Headache/Fever/Mild Pain (1-3) Last Admin: 11/25/19 19:35 Dose: 650 mg Acetaminophen (Tylenol) 650 mg [place] Q4H PRN PRN Reason: Headache/Fever/Mild Pain (1-3) Aspirin (Ecotrin) 81 mg PO DAILY KETAN Last Admin: 11/25/19 09:38 Dose: 81 mg Atorvastatin Calcium (Lipitor) 80 mg PO HS KETAN Last Admin: 11/25/19 20:08 Dose: 80 mg Bisacodyl (Dulcolax) 10 mg [place] DAILYPRN PRN PRN Reason: Constipation Dextrose/Water (Dextrose 50%) 25 gm SLOW IVP PRN PRN PRN Reason: Hypoglycemia Famotidine (Pepcid) 20 mg SLOW IVP Q12HR KETAN Last Admin: 11/25/19 20:08 Dose: 20 mg Furosemide (Lasix) 20 mg SLOW IVP 0600,1400 KETAN Last Admin: 11/26/19 05:40 Dose: 20 mg Glucagon (Glucagon) 1 mg IM PRN PRN PRN Reason: Hypoglycemia Guaifenesin/Dextromethorphan (Robitussin Dm) 15 ml PO Q4H PRN PRN Reason: Cough Tirofiban/Sodium Chloride (Aggrastat 12.5 Mg/250 Ml) 250 mls @ 0 mls/hr IVPB INF KETAN; Protocol Last Admin: 11/23/19 19:43 Dose: 250 mls Amiodarone HCl 450 mg/ (Dextrose/Water) 259 mls @ 0 mls/hr IVPB INF KETAN; Protocol Last Admin: 11/26/19 00:18 Dose: 259 mls Dextrose/Water (D5w) 1,000 mls @ 0 mls/hr IV .Q0M PRN PRN Reason: Hypoglycemia Fentanyl Citrate 2,000 mcg/ (Sodium Chloride) 100 mls @ 0 mls/hr IV INF KETAN; Protocol Stop: 12/23/19 12:35 Last Admin: 11/26/19 01:52 Dose: 100 mls Fentanyl Citrate (Fentanyl Bolus) 250 mls @ 0 mls/hr IVPB PRN PRN PRN Reason: Breakthrough pain/agitation Stop: 12/23/19 12:35 Dexmedetomidine HCl 400 mcg/ (Sodium Chloride) 100 mls @ 0 mls/hr IVPB INF KETAN ; Protocol Last Admin: 11/26/19 00:18 Dose: 100 mls Norepinephrine Bitartrate (Levophed) 250 mls @ 0 mls/hr IVPB INF KETAN; Protocol Last Admin: 11/26/19 00:19 Dose: 250 mls Piperacillin Sod/Tazobactam (Sod 3.375 gm/ Sodium Chloride) 100 mls @ 200 mls/ hr IVPB 0300,0900,1500,2100 KETAN Insulin Human Lispro (Humalog) 0 units SC .MODERATE SLIDING SC PRN PRN Reason: Moderate Correctional Scale Insulin Human Lispro (Humalog) 0 units SC .BEDTIME SLIDING SC PRN PRN Reason: Bedtime Correctional Scale Lorazepam (Ativan) 2 mg SLOW IVP Q1H PRN PRN Reason: Breakthrough agitation Stop: 12/23/19 12:35 Last Admin: 11/25/19 20:25 Dose: 2 mg Miscellaneous Medication (Electrolyte Replacement Protocol) 1 each FS PRN PRN PRN Reason: ELECTROLYTE Miscellaneous Medication (Pharmacy To Dose) 1 each IVPB PRN PRN PRN Reason: Pharmacy to dose Morphine Sulfate (Morphine Sulfate) 2 mg SLOW IVP Q1H PRN PRN Reason: Breakthrough Pain/Agitation Stop: 12/23/19 12:35 Nitroglycerin (Nitrostat) 0.4 mg SL Q5MIN PRN PRN Reason: Chest Pain Discontinue Previous Narcotic Pain Medications And Benzodiazepines 1 each FS .ONE KETAN Stop: 12/23/19 12:35 Ondansetron HCl (Zofran) 4 mg IVP Q6H PRN PRN Reason: Nausea/Vomiting Propofol (Diprivan) 1,000 mg IV INF PRN; Protocol PRN Reason: TO ACHIEVE GOAL RASS Stop: 12/23/19 12:35 Last Admin: 11/24/19 00:03 Dose: 1,000 mg Propofol (Diprivan Bolus) 20 mg IV Q5MIN PRN PRN Reason: BREAKTHROUGH AGITATION Stop: 12/23/19 12:35 Senna/Docusate Sodium (Senokot S) 2 tab PO BID PRN PRN Reason: Constipation Ticagrelor (Brilinta) 90 mg PO BID KETAN Last Admin: 11/25/19 20:08 Dose: 90 mg Vital Signs & Weight: Vital Signs Temp Pulse Resp BP Pulse Ox 11/26/19 08:14 71 99/66 11/26/19 07:28 100 11/26/19 06:00 16 11/26/19 04:00 100.5 F H 20 11/26/19 02:00 22 H 11/26/19 00:00 100.3 F H 12 11/25/19 22:00 17 Admit Weight 213 lb Weight 210 lb 5.136 oz - Physical Exam Cardiac: regular rate and rhythm, S1/S2 Extremities: no edema - Labs Result Diagrams: 11/26/19 04:20 11/26/19 04:20 Troponin/CKMB Troponin I 1.222 ng/mL (< 0.028) H* 11/23/19 13:25 - Telemetry Sinus rhythms and dysrhythmias: sinus rhythm - Assessment/Plan Assessment/Plan: 1. CAD with hx of CABG in 2017 and s/p HANNA in mid RCA graft on 11/22/2019 - On ASA and Brilinta; not on BBlocker or KRISTIE/ARB due to hypotension 2. sudden cardiac arrest with EF 10% - waiting for Echo result from [place]. If his EF < 35% more than 3 months and/or due to s/p Cardiac arrest, possible plan for AICD placement 3. Ischemic CMY 4. Acute on Chronic systolic HF - on Lasix 20mg IV BID; not on BBlocker or KRISTIE/ ARB due to hypotension 5. Parox Afib - well controlled HR with Amiodarone drip; 6. HTN - Hypotensive with Levophed drip 7. LOUANN on CKD 8. HLD - on Lipitor 9. Elevated temp with possible 2/2 Aspiration PNA? - on ABX IV MAR reviewed Pt. seen and evel. by me. I agree with the A/P by the TRANSCRIPTION MANAGER. He is arousable and sems to understand. He is still o the ventilator.. The troponin -I was only minimally elevated. [facility] If the EF has been< 35% since he was last seen here for the CABG then he will be a candidate for an implantable AICD. This may need to be approved by the [facility]. [email or web address]
[2019-11-26] MEDS: Piperacillin/Tazobactam 3.375 GM in Sodium Chloride 0.9% 100 ML IVPB SCH ×3 (09:35→20:23)
[2019-11-26] MEDS: Aspirin 81 mg Enteric Coated Tablet PO SCH (09:36)
[2019-11-26] MEDS: Famotidine/PF 20 mg/2ml Vial SLOW IVP SCH ×2 (09:36→20:23)
[2019-11-26] MEDS: TICAGRELOR 90 MG TABLET PO SCH ×2 (09:50→20:24)
[2019-11-26] MEDS: Lorazepam 2 MG/ML VIAL SLOW IVP PRN ×2 (09:55→16:50)
[2019-11-26] MEDS: Scopolamine 1.5 mg/72 hour Patch TD SCH (10:11)
[2019-11-26] MEDS ORDERED: methylPREDNISolone Sod Succ/PF 125 MG/2 ML VIAL IVP SCH (12:00)
--- NOTE | 2019-11-26 12:12 | PRG ---
DATE OF SERVICE: 11/26/2019 SUBJECTIVE: Angelo Johnosn on Precedex today, when stimulated gets very agitated, tachypneic. He still does not consistently follow commands and does so intermittently. OBJECTIVE: VITAL SIGNS: Have been stable. His heart rate in the 60s, blood pressure 114/77, respiratory rates in the teens. His temperature was 101.5 last night at 8 o'clock. Trend of his temperature is downward. LUNGS: Clear anteriorly. HEART: Regular rhythm. ABDOMEN: Soft. EXTREMITIES: Without edema. LABORATORY DATA: Chest radiograph today is improved. White count 16, hemoglobin 13.3, platelets 162,000. Electrolytes are unremarkable. Creatinine is down to 2.15. IMPRESSION: 1. Status post cardiac arrest. 2. Status post emergent cardiac catheterization. 3. Mild encephalopathy that is slowly improving. 4. Borderline failure of a leak test. He will be started on steroids nebulizer treatments today. 5. I do not feel he is weanable today. We will continue with supportive care. Job ID: [id number]
[2019-11-26] MEDS: methylPREDNISolone Sod Succ 40 MG VIAL IVP SCH ×2 (12:31→17:35)
--- NOTE | 2019-11-26 12:32 | PDOC.HOSPP ---
- Subjective Encounter Date: 11/26/19 Encounter Time: 08:00 Subjective: is on vent, on mild sedation responds to verbal stimulation and moves all extremities - Objective Vital Signs & Weight: Vital Signs (12 hours) Temp Pulse Resp BP Pulse Ox 11/26/19 10:36 67 114/77 11/26/19 10:00 22 H 11/26/19 08:14 71 99/66 11/26/19 08:00 99.5 F 18 11/26/19 07:28 100 11/26/19 06:00 16 11/26/19 04:00 100.5 F H 20 11/26/19 02:00 22 H Weight Admit Weight 213 lb Weight 210 lb 5.136 oz Most Recent Monitor Data Heart Rate from ECG 69 NIBP 108/73 NIBP BP-Mean 84 Respiration from ECG 22 SpO2 100 I&O: 11/25/19 11/26/19 11/27/19 06:59 06:59 06:59 Intake Total 1451 1061.2 100 Output Total 1920 2370 940 Balance -469 -1308.8 -840 Result Diagrams: 11/26/19 04:20 11/26/19 04:20 Additional Labs: Accuchecks 11/26/19 11/25/19 11/25/19 12:14 21:38 16:34 POC Glucose 100 112 H 104 Hospitalist ROS - Medication Medications: Active Medications Generic Name Dose Route Start Last Admin Trade Name Freq PRN Reason Stop Dose Admin Acetaminophen 650 mg 11/23/19 12:21 11/25/19 19:35 Tylenol PO 650 mg Q4H PRN Administration Headache/Fever/Mild Pain (1-3) Albuterol/Ipratropium 3 ml 11/26/19 10:30 11/26/19 10:35 Duoneb NEB 3 ml [id number] KETAN Administration Aspirin 81 mg 11/25/19 09:00 11/26/19 09:36 Ecotrin PO 81 mg DAILY KETAN Administration Atorvastatin Calcium 80 mg 11/23/19 21:00 11/25/19 20:08 Lipitor PO 80 mg HS KETAN Administration Famotidine 20 mg 11/23/19 21:00 11/26/19 09:36 Pepcid SLOW IVP 20 mg Q12HR KETAN Administration Furosemide 20 mg 11/23/19 14:00 11/26/19 05:40 Lasix SLOW IVP 20 mg 0600,1400 KETAN Administration Tirofiban/Sodium Chloride 250 mls @ 0 mls/hr 11/23/19 11:45 11/23/19 19:43 Aggrastat 12.5 Mg/250 Ml IVPB 250 mls INF KETAN Administration Protocol As Directed Amiodarone HCl 450 mg/ 259 mls @ 0 mls/hr 11/23/19 12:15 11/26/19 00:18 Dextrose/Water IVPB 259 mls INF KETAN Administration Protocol Per Protocol Fentanyl Citrate 2,000 mcg/ 100 mls @ 0 mls/hr 11/23/19 12:35 11/26/19 01:52 Sodium Chloride IV 12/23/19 12:35 100 mls INF KETAN Administration Protocol Per Protocol Dexmedetomidine HCl 400 mcg/ 100 mls @ 0 mls/hr 11/24/19 11:45 11/26/19 00:18 Sodium Chloride IVPB 100 mls INF KETAN Administration Protocol Per Protocol Norepinephrine Bitartrate 250 mls @ 0 mls/hr 11/24/19 22:05 11/26/19 00:19 Levophed IVPB 250 mls INF KETAN Administration Protocol Titrate Piperacillin Sod/Tazobactam 100 mls @ 200 mls/hr 11/26/19 09:00 11/26/19 09: 35 Sod 3.375 gm/ Sodium Chloride IVPB 100 mls 0300,0900,1500,2100 KETAN Administration Lorazepam 2 mg 11/23/19 12:35 11/26/19 09:55 Ativan SLOW IVP 12/23/19 12:35 2 mg Q1H PRN Administration Breakthrough agitation Propofol 1,000 mg 11/23/19 12:35 11/24/19 00:03 Diprivan IV 12/23/19 12:35 1,000 mg INF PRN Administration TO ACHIEVE GOAL RASS Protocol Scopolamine 1.5 mg 11/26/19 10:00 11/26/19 10:11 Transderm Scop TD 1.5 mg Q3D KETAN Administration Ticagrelor 90 mg 11/23/19 21:00 11/26/19 09:50 Brilinta PO 90 mg BID KETAN Administration - Exam Eye: PERRL, anicteric sclera ENT: no oropharyngeal lesions, moist mucosa Neck: supple, no JVD Heart: RRR, no murmur Respiratory: no wheezes, no rales Gastrointestinal: soft, non-tender, non-distended, normal bowel sounds Extremities: no cyanosis, no edema Neurological: cranial nerve grossly intact, no focal deficits Hosp A/P (1) NSTEMI (non-ST elevated myocardial infarction) Code(s): I21.4 - NON-ST ELEVATION (NSTEMI) MYOCARDIAL INFARCTION Status: Acute (2) Acute respiratory failure with hypoxia Code(s): J96.01 - ACUTE RESPIRATORY FAILURE WITH HYPOXIA Status: Acute (3) Sudden cardiac arrest Code(s): I46.9 - CARDIAC ARREST, CAUSE UNSPECIFIED Status: Acute (4) Afib Code(s): I48.91 - UNSPECIFIED ATRIAL FIBRILLATION Status: Acute Qualifiers: Atrial fibrillation type: paroxysmal Qualified Code(s): I48.0 - Paroxysmal atrial fibrillation (5) Dyslipidemia Code(s): E78.5 - HYPERLIPIDEMIA, UNSPECIFIED Status: Chronic (6) Hypertension Code(s): I10 - ESSENTIAL (PRIMARY) HYPERTENSION Status: Chronic Qualifiers: Hypertension type: essential hypertension Qualified Code(s): I10 - Essential (primary) hypertension (7) Ischemic cardiomyopathy Code(s): I25.5 - ISCHEMIC CARDIOMYOPATHY Status: Chronic - Plan hemostable follows verbal stimuli, is trying to move all extremities weaning per pulm advice is on vanc and zosyn, morton cultures are -ve s/p stent placed yesterday to rca, is on small dose of levophed h/o cabg in 2017, current ef is very low at 10% will likely need aicd/record keeper, EP consult per cardio adv
[2019-11-26] MEDS: Acetaminophen 325 MG TAB PO PRN (16:53)
[2019-11-26] MEDS: Atorvastatin Calcium 40 MG TAB PO SCH (20:24)
[2019-11-27] MEDS: methylPREDNISolone Sod Succ 40 MG VIAL IVP SCH ×3 (00:02→13:00)
[2019-11-27 01:54] LABS: Hemoglobin 14.1 g/dL (14.0-18.0); Mean Corpuscular HGB CONC 32.7 g/dL (32.0-36.0); Mean Corpuscular Hemoglobin 32.1 pg (27.0-31.0); Mean Corpuscular Volume 98.2 fL (78.0-98.0); Mean Platelet Volume 9.5 fL (7.4-10.4); Platelet Count 190 thou/uL (130-400); RBC Distribution Width 11.8 % (11.5-14.5); Red Blood Cell (RBC) Count 4.38 mill/uL (4.70-6.10); White Blood Cell (WBC) Count 12.4 thou/uL (4.8-10.8)
[2019-11-27 01:55] LABS: Band 2 % (5-11); Lymphocytes 3 % (21-51); MDiff Complete? YES; Monocytes 3 % (0-10); Neutrophil 92 % (42-75)
[2019-11-27 01:56] LABS: Anion Gap 14 mmol/L (10-20); BUN (Urea Nitrogen) 23 mg/dL (8.4-25.7); Calc. Creatinine Clearance 46 mL/min (70-130); Calcium 9.2 mg/dL (7.8-10.44); Carbon Dioxide 27 mmol/L (23-31); Chloride 106 mmol/L (98-107); Estimated GFR-MDRD 38; Glucose 159 mg/dL (80-115); Potassium 4.1 mmol/L (3.5-5.1); Sodium 143 mmol/L (136-145)
[2019-11-27] MEDS: Lorazepam 2 MG/ML VIAL SLOW IVP PRN (03:32)
[2019-11-27] MEDS: Piperacillin/Tazobactam 3.375 GM in Sodium Chloride 0.9% 100 ML IVPB SCH (03:32)
[2019-11-27] MEDS: Furosemide 20 MG/2 ML VIAL SLOW IVP SCH ×2 (05:38→13:00)
[2019-11-27] MEDS: Amiodarone 450 MG in Dextrose 5% in Water 250 ML IVPB SCH (06:44)
--- NOTE | 2019-11-27 07:54 | RAD ---
Chest one view HISTORY: Dyspnea. Respiratory failure. COMPARISON: 11/26/2019. FINDINGS: Cardiac silhouette remains magnified and upper limits of normal in size. Pulmonary vasculat ure slightly less engorged than on the prior study. Patient slightly rotated leftward. Endotracheal catheter and right subclavian central venous catheter appear unchanged in position. Tip of the nasogastric tube is now not seen beyond the level of the upper to mid mediastinum and not seen within the stomach. No lobar consolidation or evidence of pneumothorax. Linear parenchymal volume loss over the right mid chest is less pronounced than on the previous exam. rn community health leads overlie the chest. IMPRESSION : Suspected partial withdrawal of the nasogastric tube, now with the tip at the level of the upper to m id mediastinum. Please consider advancing the nasogastric tube for better positioning. Improved aeration of the right lung.
--- NOTE | 2019-11-27 09:30 | PDOC.CPN ---
- Subjective Date: 11/27/19 Time: 08:30 Interval history: The pt seen and examined. No overnight events. On Vent with off sedation. He follows commands but easy to get agitated - Objective Allergies/Adverse Reactions: Allergies Allergy/AdvReac Type Severity Reaction Status Date / Time No Known Allergies Allergy Verified 08/12/19 13:32 Visit Medications: Current Medications Acetaminophen (Tylenol) 650 mg PO Q4H PRN PRN Reason: Headache/Fever/Mild Pain (1-3) Last Admin: 11/26/19 16:53 Dose: 650 mg Acetaminophen (Tylenol) 650 mg [place] Q4H PRN PRN Reason: Headache/Fever/Mild Pain (1-3) Albuterol/Ipratropium (Duoneb) 3 ml NEB [id number] KETAN Last Admin: 11/27/19 07:17 Dose: 3 ml Aspirin (Ecotrin) 81 mg PO DAILY KETAN Last Admin: 11/26/19 09:36 Dose: 81 mg Atorvastatin Calcium (Lipitor) 80 mg PO HS KETAN Last Admin: 11/26/19 20:24 Dose: 80 mg Bisacodyl (Dulcolax) 10 mg [place] DAILYPRN PRN PRN Reason: Constipation Dextrose/Water (Dextrose 50%) 25 gm SLOW IVP PRN PRN PRN Reason: Hypoglycemia Famotidine (Pepcid) 20 mg SLOW IVP DAILY KETAN Furosemide (Lasix) 20 mg SLOW IVP 0600,1400 [facility] Last Admin: 11/27/19 05:38 Dose: 20 mg Glucagon (Glucagon) 1 mg IM PRN PRN PRN Reason: Hypoglycemia Guaifenesin/Dextromethorphan (Robitussin Dm) 15 ml PO Q4H PRN PRN Reason: Cough Amiodarone HCl 450 mg/ (Dextrose/Water) 259 mls @ 0 mls/hr IVPB INF KETAN; Protocol Last Admin: 11/27/19 06:44 Dose: 259 mls Dextrose/Water (D5w) 1,000 mls @ 0 mls/hr IV .Q0M PRN PRN Reason: Hypoglycemia Fentanyl Citrate 2,000 mcg/ (Sodium Chloride) 100 mls @ 0 mls/hr IV INF KETAN; Protocol Stop: 12/23/19 12:35 Last Admin: 11/26/19 22:54 Dose: 100 mls Fentanyl Citrate (Fentanyl Bolus) 250 mls @ 0 mls/hr IVPB PRN PRN PRN Reason: Breakthrough pain/agitation Stop: 12/23/19 12:35 Dexmedetomidine HCl 400 mcg/ (Sodium Chloride) 100 mls @ 0 mls/hr IVPB INF KETAN ; Protocol Last Admin: 11/26/19 22:41 Dose: 100 mls Norepinephrine Bitartrate (Levophed) 250 mls @ 0 mls/hr IVPB INF KETAN; Protocol Last Admin: 11/26/19 00:19 Dose: 250 mls Ceftriaxone Sodium 2 gm/ (Sodium Chloride) 100 mls @ 100 mls/hr IVPB 0900 KETAN Insulin Human Lispro (Humalog) 0 units SC .MODERATE SLIDING SC PRN PRN Reason: Moderate Correctional Scale Insulin Human Lispro (Humalog) 0 units SC .BEDTIME SLIDING SC PRN PRN Reason: Bedtime Correctional Scale Lorazepam (Ativan) 2 mg SLOW IVP Q1H PRN PRN Reason: Breakthrough agitation Stop: 12/23/19 12:35 Last Admin: 11/27/19 03:32 Dose: 2 mg Methylprednisolone Sodium Succinate (Solu-Medrol) 40 mg IVP Q6HR [facility] Last Admin: 11/27/19 05:38 Dose: 40 mg Miscellaneous Medication (Electrolyte Replacement Protocol) 1 each FS PRN PRN PRN Reason: ELECTROLYTE Miscellaneous Medication (Pharmacy To Dose) 1 each IVPB PRN PRN PRN Reason: Pharmacy to dose Morphine Sulfate (Morphine Sulfate) 2 mg SLOW IVP Q1H PRN PRN Reason: Breakthrough Pain/Agitation Stop: 12/23/19 12:35 Nitroglycerin (Nitrostat) 0.4 mg SL Q5MIN PRN PRN Reason: Chest Pain Discontinue Previous Narcotic Pain Medications And Benzodiazepines 1 each FS .ONE KETAN Stop: 12/23/19 12:35 Ondansetron HCl (Zofran) 4 mg IVP Q6H PRN PRN Reason: Nausea/Vomiting Propofol (Diprivan) 1,000 mg IV INF PRN; Protocol PRN Reason: TO ACHIEVE GOAL RASS Stop: 12/23/19 12:35 Last Admin: 11/24/19 00:03 Dose: 1,000 mg Propofol (Diprivan Bolus) 20 mg IV Q5MIN PRN PRN Reason: BREAKTHROUGH AGITATION Stop: 12/23/19 12:35 Scopolamine (Transderm Scop) 1.5 mg TD Q3D [facility] Last Admin: 11/26/19 10:11 Dose: 1.5 mg Senna/Docusate Sodium (Senokot S) 2 tab PO BID PRN PRN Reason: Constipation Sodium Chloride (Flush - Normal Saline) 10 ml IVF Q12HR KETAN Sodium Chloride (Flush - Normal Saline) 10 ml IVF PRN PRN PRN Reason: Saline Flush Ticagrelor (Brilinta) 90 mg PO BID [facility] Last Admin: 11/26/19 20:24 Dose: 90 mg Vital Signs & Weight: Vital Signs Temp Pulse Resp Pulse Ox 11/27/19 08:00 99.3 F 24 H 11/27/19 07:19 70 11/27/19 06:00 20 11/27/19 04:00 99.5 F 21 H 11/27/19 02:19 68 23 H 100 11/27/19 02:00 20 11/27/19 00:00 98.3 F 19 11/26/19 22:00 16 Admit Weight 213 lb Weight 210 lb 5.136 oz - Physical Exam General: other (he follows commands) Neck: supple neck Cardiac: regular rate and rhythm, S1/S2 Lungs: decreased breath sounds Extremities: no edema - Labs Result Diagrams: 11/27/19 01:10 11/27/19 01:10 Troponin/CKMB Troponin I 1.222 ng/mL (< 0.028) H* 11/23/19 13:25 - Telemetry Sinus rhythms and dysrhythmias: sinus rhythm - Assessment/Plan Assessment/Plan: 1. CAD with hx of CABG in 2017 and s/p HANNA in mid RCA graft on 11/22/2019 - On ASA and Brilinta; not on BBlocker or KRISTIE/ARB due to hypotension 2. sudden cardiac arrest with EF 10% - [facility] If his EF < 35% more than 3 months and/or due to s/p Cardiac arrest, possible plan for AICD placement 3. Ischemic CMY 4. Acute on Chronic systolic HF - on Lasix 20mg IV BID; not on BBlocker or KRISTIE/ ARB due to hypotension 5. Parox Afib - in SR with well controlled HR with Amiodarone drip; 6. HTN - Hypotensive with Levophed drip 7. LOUANN on CKD 8. HLD - on Lipitor 9. Elevated temp with possible 2/2 Aspiration PNA? - on ABX IV MAR reviewed Pt. seen and eval. by me. I agree with the A/P: by the SALES DATA ANALYST. He is now off the ventilator. Confused. [facility] ,[facility],and the EF was 35-40%. I will repeat the echo here now that he is extubated. If the EF < 35% then EP consult for probable bi-V AICD. Change IV amiodarone to po. He may need to go to rehab. if the mental status does not improve. If the EF is still very low he will be started on inotropic support.[email or web address]
[2019-11-27] MEDS: Aspirin 81 mg Enteric Coated Tablet PO SCH (10:06)
[2019-11-27] MEDS: cefTRIAXone\\ROCEPHIN 2 GM in Sodium Chloride 0.9% 100 ML IVPB SCH (10:06)
[2019-11-27] MEDS: TICAGRELOR 90 MG TABLET PO SCH ×2 (10:07→19:57)
[2019-11-27] MEDS: Famotidine/PF 20 mg/2ml Vial SLOW IVP SCH (10:07)
--- NOTE | 2019-11-27 12:38 | PDOC.HOSPP ---
- Subjective Encounter Date: 11/27/19 Encounter Time: 08:30 Subjective: got extubated this am is still not fully oriented but awakens easily is seen moving all extremities except left Upper - Objective Vital Signs & Weight: Vital Signs (12 hours) Temp Pulse Resp Pulse Ox 11/27/19 12:00 97.8 F 11/27/19 10:21 77 18 97 11/27/19 08:55 99 11/27/19 08:45 100 11/27/19 08:00 99.3 F 24 H 11/27/19 07:19 70 11/27/19 06:00 20 11/27/19 04:00 99.5 F 21 H 11/27/19 02:19 68 23 H 100 11/27/19 02:00 20 Weight Admit Weight 213 lb Weight 210 lb 5.136 oz Most Recent Monitor Data Heart Rate from ECG 77 NIBP 116/81 NIBP BP-Mean 92 Respiration from ECG 23 SpO2 99 I&O: 11/26/19 11/27/19 11/28/19 06:59 06:59 06:59 Intake Total 1061.2 1196.0 241.9 Output Total 2370 3045 550 Balance -1308.8 -1849.0 -308.1 Result Diagrams: 11/27/19 01:10 11/27/19 01:10 Additional Labs: Accuchecks 11/27/19 11/27/19 11/26/19 10:45 03:45 21:09 POC Glucose 137 H 155 H 135 H 11/26/19 16:08 POC Glucose 130 H Hospitalist ROS - Medication Medications: Active Medications Generic Name Dose Route Start Last Admin Trade Name Tomasz PRN Reason Stop Dose Admin Acetaminophen 650 mg 11/23/19 12:21 11/26/19 16:53 Tylenol PO 650 mg Q4H PRN Administration Headache/Fever/Mild Pain (1-3) Albuterol/Ipratropium 3 ml 11/26/19 10:30 11/27/19 10:21 Duoneb NEB 3 ml [id number] KETAN Administration Aspirin 81 mg 11/25/19 09:00 11/27/19 10:06 Ecotrin PO 81 mg DAILY KETAN Administration Atorvastatin Calcium 80 mg 11/23/19 21:00 11/26/19 20:24 Lipitor PO 80 mg HS KETAN Administration Famotidine 20 mg 11/27/19 09:00 11/27/19 10:07 Pepcid SLOW IVP 20 mg DAILY KETAN Administration Furosemide 20 mg 11/23/19 14:00 11/27/19 05:38 Lasix SLOW IVP 20 mg 0600,1400 KETAN Administration Amiodarone HCl 450 mg/ 259 mls @ 0 mls/hr 11/23/19 12:15 11/27/19 06:44 Dextrose/Water IVPB 259 mls INF KETAN Administration Protocol Per Protocol Fentanyl Citrate 2,000 mcg/ 100 mls @ 0 mls/hr 11/23/19 12:35 11/26/19 22:54 Sodium Chloride IV 12/23/19 12:35 100 mls INF KETAN Administration Protocol Per Protocol Dexmedetomidine HCl 400 mcg/ 100 mls @ 0 mls/hr 11/24/19 11:45 11/26/19 22:41 Sodium Chloride IVPB 100 mls INF KETAN Administration Protocol Per Protocol Norepinephrine Bitartrate 250 mls @ 0 mls/hr 11/24/19 22:05 11/26/19 00:19 Levophed IVPB 250 mls INF KETAN Administration Protocol Titrate Ceftriaxone Sodium 2 gm/ 100 mls @ 100 mls/hr 11/27/19 09:00 11/27/19 10:06 Sodium Chloride IVPB 100 mls 0900 KETAN Administration Lorazepam 2 mg 11/23/19 12:35 11/27/19 03:32 Ativan SLOW IVP 12/23/19 12:35 2 mg Q1H PRN Administration Breakthrough agitation Methylprednisolone Sodium Succinate 40 mg 11/26/19 12:00 11/27/19 05:38 Solu-Medrol IVP 40 mg Q6HR KETAN Administration Propofol 1,000 mg 11/23/19 12:35 11/24/19 00:03 Diprivan IV 12/23/19 12:35 1,000 mg INF PRN Administration TO ACHIEVE GOAL RASS Protocol Scopolamine 1.5 mg 11/26/19 10:00 11/26/19 10:11 Transderm Scop TD 1.5 mg Q3D KETAN Administration Sodium Chloride 10 ml 11/27/19 09:00 11/27/19 10:07 Flush - Normal Saline IVF 10 ml Q12HR KETAN Administration Ticagrelor 90 mg 11/23/19 21:00 07/07/20 10:07 Brilinta PO 90 mg BID KETAN Administration - Exam General Appearance: ill appearing Eye: PERRL, anicteric sclera ENT: no oropharyngeal lesions, dry oral mucosa Neck: supple, no JVD Heart: RRR, no murmur Respiratory: no wheezes, no rales Gastrointestinal: soft, non-tender, non-distended, normal bowel sounds Extremities: no cyanosis, no edema Neurological: cranial nerve grossly intact, no focal deficits Hosp A/P (1) NSTEMI (non-ST elevated myocardial infarction) Code(s): I21.4 - NON-ST ELEVATION (NSTEMI) MYOCARDIAL INFARCTION Status: Acute (2) Acute respiratory failure with hypoxia Code(s): J96.01 - ACUTE RESPIRATORY FAILURE WITH HYPOXIA Status: Acute (3) Sudden cardiac arrest Code(s): I46.9 - CARDIAC ARREST, CAUSE UNSPECIFIED Status: Acute (4) Afib Code(s): I48.91 - UNSPECIFIED ATRIAL FIBRILLATION Status: Acute Qualifiers: Atrial fibrillation type: paroxysmal Qualified Code(s): I48.0 - Paroxysmal atrial fibrillation (5) Dyslipidemia Code(s): E78.5 - HYPERLIPIDEMIA, UNSPECIFIED Status: Chronic (6) Hypertension Code(s): I10 - ESSENTIAL (PRIMARY) HYPERTENSION Status: Chronic Qualifiers: Hypertension type: essential hypertension Qualified Code(s): I10 - Essential (primary) hypertension (7) Ischemic cardiomyopathy Code(s): I25.5 - ISCHEMIC CARDIOMYOPATHY Status: Chronic - Plan hemostable got extubated this am is on vanc and zosyn, morton cultures are -ve s/p stent placed on admission to [facility] h/o cabg in 2017, current ef is very low at 10% 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
--- NOTE | 2019-11-27 15:54 | PRG ---
DATE OF SERVICE: 11/27/2019 SUBJECTIVE: Mr. Johnson is afebrile. Blood pressure 140/82, respiratory rates in 20s. Sedation was held. He was cooperative. He passed a leak test. OBJECTIVE: LUNGS: Clear. HEART: Regular rhythm. ABDOMEN: Soft. EXTREMITIES: Without clubbing, cyanosis, or edema. DIAGNOSTIC STUDIES: Chest radiograph showed no new infiltrates. White count 12.4, hemoglobin 14.1 platelets 190. Electrolytes are normal. Creatinine is 2.15. His highest creatinine was on the 4th at 2.9. IMPRESSION: 1. Status post emergent cardiac catheterization after an arrest with stent placements. 2. Anoxic encephalopathy that appears to have resolved. 3. ? Failed leak test yesterday. He clearly had a significant drop in tidal volumes with deflation of his cuff. He has subsequently been extubated and is doing well postextubation. CRITICAL CARE TIME: 30 minutes. Job ID: [id number]
[2019-11-27] MEDS: Atorvastatin Calcium 40 MG TAB PO SCH (19:57)
[2019-11-27] MEDS: Amiodarone 200 MG TAB PO SCH (19:57)
[2019-11-27] MEDS: HYDROcodone/Acetaminophen 5/325 mg Tablet PO PRN (21:30)
[2019-11-28] MEDS: Furosemide 20 MG/2 ML VIAL SLOW IVP SCH ×2 (05:54→13:28)
[2019-11-28] MEDS: HYDROcodone/Acetaminophen 5/325 mg Tablet PO PRN ×2 (05:54→15:33)
[2019-11-28 06:55] LABS: Hemoglobin 15.6 g/dL (14.0-18.0); Mean Corpuscular HGB CONC 33.4 g/dL (32.0-36.0); Mean Corpuscular Hemoglobin 32.4 pg (27.0-31.0); Mean Corpuscular Volume 96.9 fL (78.0-98.0); Mean Platelet Volume 9.2 fL (7.4-10.4); Platelet Count 224 thou/uL (130-400); Red Blood Cell (RBC) Count 4.81 mill/uL (4.70-6.10); White Blood Cell (WBC) Count 19.6 thou/uL (4.8-10.8)
[2019-11-28 07:17] LABS: Anion Gap 18 mmol/L (10-20); BUN (Urea Nitrogen) 25 mg/dL (8.4-25.7); Calc. Creatinine Clearance 49 mL/min (70-130); Calcium 9.8 mg/dL (7.8-10.44); Carbon Dioxide 23 mmol/L (23-31); Chloride 105 mmol/L (98-107); Estimated GFR-MDRD 41; Glucose 93 mg/dL (80-115); Potassium 4.7 mmol/L (3.5-5.1); Sodium 141 mmol/L (136-145)
[2019-11-28 07:46] LABS: Band 1 % (5-11); Lymphocytes 13 % (21-51); MDiff Complete? YES; Monocytes 7 % (0-10); Neutrophil 75 % (42-75); RBC Morphology Normal; Reactive Lymphocytes 4 % (0-10)
[2019-11-28] MEDS: Famotidine/PF 20 mg/2ml Vial SLOW IVP SCH (08:35)
[2019-11-28] MEDS: Aspirin 81 mg Enteric Coated Tablet PO SCH (08:35)
[2019-11-28] MEDS: Amiodarone 200 MG TAB PO SCH ×3 (08:35→20:58)
[2019-11-28] MEDS: cefTRIAXone\\ROCEPHIN 2 GM in Sodium Chloride 0.9% 100 ML IVPB SCH (08:35)
[2019-11-28] MEDS: TICAGRELOR 90 MG TABLET PO SCH ×2 (08:35→20:57)
[2019-11-28] MEDS ORDERED: Carvedilol 3.125 MG TAB PO SCH (12:30)
--- NOTE | 2019-11-28 12:35 | PDOC.CPN ---
- Subjective Date: 11/28/19 Time: 08:30 Interval history: The pt seen and examined. No overnight events. No cardiac complaints. Tele monitor has been showing Parox afib and SR with HR 70-120s. He complains of soreness to MS area with palpitation and movement, especially he coughs - Objective Allergies/Adverse Reactions: Allergies Allergy/AdvReac Type Severity Reaction Status Date / Time No Known Allergies Allergy Verified 08/12/19 13:32 Visit Medications: Current Medications Acetaminophen (Tylenol) 650 mg PO Q4H PRN PRN Reason: Headache/Fever/Mild Pain (1-3) Last Admin: 11/26/19 16:53 Dose: 650 mg Acetaminophen (Tylenol) 650 mg NV Q4H PRN PRN Reason: Headache/Fever/Mild Pain (1-3) Hydrocodone Bitart/Acetaminophen ([place] 5/325) 1 tab PO Q4H PRN PRN Reason: Moderate Pain (4-6) Last Admin: 11/28/19 05:54 Dose: 1 tab Amiodarone HCl (Cordarone) 200 mg PO TID [facility] Last Admin: 11/28/19 08:35 Dose: 200 mg Aspirin (Ecotrin) 81 mg PO DAILY [facility] Last Admin: 11/28/19 08:35 Dose: 81 mg Atorvastatin Calcium (Lipitor) 80 mg PO HS [facility] Last Admin: 11/27/19 19:57 Dose: 80 mg Bisacodyl (Dulcolax) 10 mg NV DAILYPRN PRN PRN Reason: Constipation Carvedilol (Coreg) 3.125 mg PO BID KETAN Carvedilol (Coreg) 3.125 mg PO ONE [facility] Dextrose/Water (Dextrose 50%) 25 gm SLOW IVP PRN PRN PRN Reason: Hypoglycemia Famotidine (Pepcid) 20 mg SLOW IVP DAILY [facility] Last Admin: 11/28/19 08:35 Dose: 20 mg Furosemide (Lasix) 20 mg SLOW IVP 0600,1400 [facility] Last Admin: 11/28/19 05:54 Dose: 20 mg Glucagon (Glucagon) 1 mg IM PRN PRN PRN Reason: Hypoglycemia Guaifenesin/Dextromethorphan (Robitussin Dm) 15 ml PO Q4H PRN PRN Reason: Cough Dextrose/Water (D5w) 1,000 mls @ 0 mls/hr IV .Q0M PRN PRN Reason: Hypoglycemia Ceftriaxone Sodium 2 gm/ (Sodium Chloride) 100 mls @ 100 mls/hr IVPB 0900 [facility] Last Admin: 11/28/19 08:35 Dose: 100 mls Insulin Human Lispro (Humalog) 0 units SC .MODERATE SLIDING SC PRN PRN Reason: Moderate Correctional Scale Insulin Human Lispro (Humalog) 0 units SC .BEDTIME SLIDING SC PRN PRN Reason: Bedtime Correctional Scale Miscellaneous Medication (Electrolyte Replacement Protocol) 1 each FS PRN PRN PRN Reason: ELECTROLYTE Miscellaneous Medication (Pharmacy To Dose) 1 each IVPB PRN PRN PRN Reason: Pharmacy to dose Morphine Sulfate (Morphine Sulfate) 2 mg SLOW IVP Q1H PRN PRN Reason: Breakthrough Pain/Agitation Stop: 12/23/19 12:35 Nitroglycerin (Nitrostat) 0.4 mg SL Q5MIN PRN PRN Reason: Chest Pain Discontinue Previous Narcotic Pain Medications And Benzodiazepines 1 each FS .ONE [facility] Stop: 12/23/19 12:35 Ondansetron HCl (Zofran) 4 mg IVP Q6H PRN PRN Reason: Nausea/Vomiting Propofol (Diprivan) 1,000 mg IV INF PRN; Protocol PRN Reason: TO ACHIEVE GOAL RASS Stop: 12/23/19 12:35 Last Admin: 11/24/19 00:03 Dose: 1,000 mg Propofol (Diprivan Bolus) 20 mg IV Q5MIN PRN PRN Reason: BREAKTHROUGH AGITATION Stop: 12/23/19 12:35 Scopolamine (Transderm Scop) 1.5 mg TD Q3D [facility] Last Admin: 11/26/19 10:11 Dose: 1.5 mg Senna/Docusate Sodium (Senokot S) 2 tab PO BID PRN PRN Reason: Constipation Sodium Chloride (Flush - Normal Saline) 10 ml IVF Q12HR [facility] Last Admin: 11/28/19 08:36 Dose: 10 ml Sodium Chloride (Flush - Normal Saline) 10 ml IVF PRN PRN PRN Reason: Saline Flush Ticagrelor (Brilinta) 90 mg PO BID [facility] Last Admin: 11/28/19 08:35 Dose: 90 mg Vital Signs & Weight: Vital Signs Temp Pulse Resp BP Pulse Ox 11/28/19 08:00 93 L 11/28/19 03:09 97.8 F 69 20 135/73 93 L Admit Weight 213 lb Weight 207 lb 1.6 oz - Physical Exam General: alert & oriented x3 HEENT: mucus membranes moist Neck: supple neck Cardiac: regular rate and rhythm, irregularly regular Lungs: decreased breath sounds Neuro: cranial nerve 2-12 intact Extremities: no edema - Labs Result Diagrams: 11/28/19 06:43 11/28/19 06:43 Troponin/CKMB Troponin I 1.222 ng/mL (< 0.028) H* 11/23/19 13:25 - Telemetry Sinus rhythms and dysrhythmias: other (parox Afib and SR) - Assessment/Plan Assessment/Plan: 1. CAD with hx of CABG in 2017 and s/p HANNA in mid RCA graft on 11/22/2019 - On ASA and Brilinta; will start Coreg 3.125mg BID for CAD, CHF and afib management 2. sudden cardiac arrest with EF 10% - [facility]. If his EF < 35% more than 3 months and/or due to s/p Cardiac arrest, possible plan for AICD placement 3. Ischemic CMY - request EP consult 4. Acute on Chronic systolic HF - on Lasix 20mg IV BID; will start Coreg 3.125mg BID 5. Parox Afib - intermittent SR and AFib with well controlled HR with Amiodarone PO 200mg TID since PM on 11/27/2019 6. HTN - stable with current meds 7. LOUANN on CKD 8. HLD - on Lipitor 9. Elevated temp with possible 2/2 Aspiration PNA? - on ABX IV MAR reviewed Pt. seen and eval. by me. Much more alert today, back to baseline. C/o's of pain in the chest with coughing,post CPR. chest clear. RRR. no edema. Earlier today he had an episode of atrial fib. but converted back to NSR. Otto request EP consult for probable AICD. Severe decr. in LV syst. function. He has CKD and is not a candidate for Entresto or Aldactone at this time.
--- NOTE | 2019-11-28 14:09 | PDOC.HOSPP ---
- Subjective Encounter Date: 11/28/19 Encounter Time: 12:30 Subjective: Patient seen and examined for CP/NSTEMI. No new CP. Transient Afib earlier. No CP. No new complaints. No overnight events - Objective Vital Signs & Weight: Vital Signs (12 hours) Temp Pulse Resp BP Pulse Ox 11/28/19 12:58 98.3 F 81 18 144/83 H 95 11/28/19 12:00 97.8 F 76 18 153/93 H 93 L 11/28/19 08:00 93 L 11/28/19 03:09 97.8 F 69 20 135/73 93 L Weight Admit Weight 213 lb Weight 207 lb 1.6 oz Most Recent Monitor Data Heart Rate from ECG 78 NIBP 143/88 NIBP BP-Mean 106 Respiration from ECG 12 SpO2 99 I&O: 11/27/19 11/28/19 11/29/19 06:59 06:59 06:59 Intake Total 1196.0 1071.9 Output Total 3045 1660 Balance -1849.0 -588.1 Result Diagrams: 11/28/19 06:43 11/28/19 06:43 Additional Labs: Accuchecks 11/28/19 11/28/19 11/27/19 12:09 04:21 22:35 POC Glucose 125 H 108 114 H 11/27/19 16:40 POC Glucose 126 H EKG Reviewed by me: Yes (Tele SR) Hospitalist ROS - Review of Systems Respiratory: reports: SOB with excertion. denies: cough, dry, shortness of breath, hemoptysis, pleuritic pain, sputum, wheezing, other Cardiovascular: denies: chest pain, palpitations, orthopnea, paroxysmal noc. dyspnea, edema, light headedness, other - Medication Medications: Active Medications Generic Name Dose Route Start Last Admin Trade Name Freq PRN Reason Stop Dose Admin Acetaminophen 650 mg 11/23/19 12:21 11/26/19 16:53 Tylenol PO 650 mg Q4H PRN Administration Headache/Fever/Mild Pain (1-3) Hydrocodone Bitart/Acetaminophen 1 tab 11/27/19 21:21 11/28/19 05:54 [place] 5/325 PO 1 tab Q4H PRN Administration Moderate Pain (4-6) Amiodarone HCl 200 mg 11/27/19 21:00 11/28/19 08:35 Cordarone PO 200 mg TID KETAN Administration Aspirin 81 mg 11/25/19 09:00 11/28/19 08:35 Ecotrin PO 81 mg DAILY KETAN Administration Atorvastatin Calcium 80 mg 11/23/19 21:00 11/27/19 19:57 Lipitor PO 80 mg HS KETAN Administration Carvedilol 3.125 mg 11/28/19 12:30 11/28/19 13:28 Coreg PO 11/28/19 15:00 3.125 mg NOW KETAN Administration Famotidine 20 mg 11/27/19 09:00 11/28/19 08:35 Pepcid SLOW IVP 20 mg DAILY KETAN Administration Furosemide 20 mg 11/23/19 14:00 11/28/19 13:28 Lasix SLOW IVP 20 mg 0600,1400 KETAN Administration Ceftriaxone Sodium 2 gm/ 100 mls @ 100 mls/hr 11/27/19 09:00 11/28/19 08:35 Sodium Chloride IVPB 100 mls 0900 KETAN Administration Scopolamine 1.5 mg 11/26/19 10:00 11/26/19 10:11 Transderm Scop TD 1.5 mg Q3D KETAN Administration Sodium Chloride 10 ml 11/27/19 09:00 11/28/19 08:36 Flush - Normal Saline IVF 10 ml Q12HR KETAN Administration Ticagrelor 90 mg 11/23/19 21:00 11/28/19 08:35 Brilinta PO 90 mg BID KETAN Administration - Exam General Appearance: NAD Heart: RRR, no gallops Respiratory: no wheezes, no ronchi Gastrointestinal: non-tender, non-distended, no guarding Extremities: no cyanosis, 1+ LE edema Hosp A/P - Plan DVT proph w/SCDs Cardiac arrest/NSTEMI/V fib s/p CV -s/p stent placement to RCA graft -on ASA/Brilinta Acute respiratory failure with hypoxia with ?Aspiration Pneumonitis -extubated 11/26 Acute on Chronic systolic HF -on IV Lasix Par Afib -on Amiodarone loading HTN HLD CAD s/p CABG 2016 PLAN: Await EP input Cont IV Ceftriaxone Cont antiplatelets Coreg started today Add PT Cardiac rehab AM labs [facility] at [facility] lesli paredes in AM
--- NOTE | 2019-11-28 15:48 | PRG ---
DATE OF SERVICE: 11/28/2019 SUBJECTIVE: Angelo Johnson is in no distress. OBJECTIVE: VITAL SIGNS: He is afebrile, heart rate is 80, respiratory rate is 18, oximetry is 95% on room air, and blood pressure 144/83. He is now in the telemetry unit. LUNGS: Clear. HEART: Regular rhythm. ABDOMEN: Soft. IMPRESSION: Status post witnessed arrest in the hospital with emergent cardiac catheterization and placement of stents. He is clinically stable. We will sign off now that he is out of the critical care unit. Job ID: [id number]
--- NOTE | 2019-11-28 16:51 | CON ---
DATE OF CONSULTATION: 11/28/2019 REASON FOR CONSULTATION: Consideration for an ICD, atrial fibrillation. HISTORY OF PRESENT ILLNESS: Mr. Johnson is a 64-year-old gentleman with a history of coronary artery disease and a prior 3-vessel coronary artery bypass grafting [place] [address] Olguin. At that time, he was noted to have left main stenosis. It was noted at that time that the SVGs were small vessels. He had been followed by the [place] since then. He went to the [facility] reporting chest pain and went into ventricular fibrillation. He required resuscitation, was intubated, and required shock to convert back to sinus rhythm. He has also been seen to have paroxysmal atrial fibrillation. There is mention of occasional bigeminal PVCs. In the past, his ejection fraction was moderately reduced at 35% to 40% in 2017. He underwent emergent left heart catheterization while intubated upon arrival to [facility] on 11/23/[address] Varghese. At that time, it was found that his saphenous vein graft to the RCA was occluded and a drug-eluting stent was placed. Echocardiogram in this hospitalization shows an EF severely reduced at 10% to 15 %. He was placed on IV amiodarone initially and has since transitioned to oral dosing. Currently, Mr. Johnson is resting in bed. He reports ongoing chest pain provoked by coughing and deep breathing post resuscitation and CPR. He denies any heart racing, palpitations, syncope, near syncope, stroke, or stroke-like symptoms. PAST MEDICAL HISTORY: 1. Coronary artery disease with 3-vessel coronary artery bypass grafting in 2017 , drug-eluting stent to the RCA-SVG on 11/23/2019. 2. Hypertension. 3. Dyslipidemia. 4. GERD. 5. TONIA, possibly with CPAP at home. 6. Obesity. ALLERGIES: NONE. HOME MEDICATIONS: Include; 1. Lopressor 12.5 mg b.i.d. 2. Flonase daily. 3. Lasix 20 mg daily. 4. Atorvastatin at bedtime. 5. Aspirin 81 mg daily. 6. Klor-Con 10 mEq daily. 7. Protonix 40 mg daily. 8. Loratadine daily. FAMILY HISTORY: Negative for early onset CAD or sudden cardiac . SOCIAL HISTORY: History of tobacco use and secondhand smoke. Occasional alcohol use. Negative for illicit drug use. OBJECTIVE: VITAL SIGNS: Height is 6 feet and 2 inches, weight 207 pounds. Temperature 98.3, pulse 81, blood pressure 144/83, respirations 18, and oxygen 95% on room air. GENERAL: The patient is alert and oriented. Speech is somewhat unclear, but at baseline. He is in no apparent distress unless he is coughing when he has significant rib/chest wall pain. He is sitting semi-recumbent in bed. HEENT: He is normocephalic and atraumatic. Sclerae are anicteric. EOMs are intact. Oral mucosa is moist and pink with fair dentition. NECK: Supple without jugular venous distention. HEART: Rate is regular with some etopy. with crisp S1 and S2. PMI is nondisplaced. There is a scar from a prior sternal incision. ABDOMEN: Obese, soft, and nontender without palpable masses. EXTREMITIES: Warm and dry to touch. Well perfused without clubbing, cyanosis, or edema. NEUROLOGIC: Grossly intact and nonfocal. Gait was not assessed. DATABASE: Laboratory: Hematology was unremarkable. Chemistry; potassium 4.7, creatinine 1.98. BNP 565 on 11/23. Highest troponin was 1.22. Echocardiogram on 11/24/2019, EF 10% to 15%, mildly dilated left atrium. Left atrial dimension is 4.89 cm. Telemetry and EKG show sinus rhythm with occasional PACs and PVCs. Paroxysmal atrial fibrillation with ventricular rates of approximately 110 beats per minute is seen, but currently in sinus rhythm. IMPRESSION: 1. S/P Cardiac arrest in te setting of possible myocardial ischemia. 2. Coronary artery disease with stenting of the saphenous vein graft to the RCA immediately upon arrival. 2a. S/P [id number] in the past. 2b. 8. Ischemic cardiomyopathy. Reduced LVEF 35-40% in the past now 10-15%. 3. NS-VT, frequent PVCs. 4. Paroxysmal Atrial fibrillation. 5. Chronic kidney disease. 6. Obesity. 7. Gastroesophageal reflux disease. 8. Hypertension PLAN AND RECOMMENDATIONS: Mr. Johnson is a 64-year-old gentleman with a history of significant coronary artery disease, who had a ventricular fibrillation arrest in the setting of an occluded saphenous vein graft to the RCA. He underwent emergent left heart catheterization, received drug-eluting stent to that saphenous vein graft on 11/23/2019. Following this, he has had paroxysmal atrial fibrillation episodes and was on IV amiodarone, which is since transitioned to oral amiodarone, currently 200 mg t.i.d. with his loading taper. His ejection fraction is now severely reduced at 10% to 15%, most recently documented at 35% to 40% in 2017 prior to this. In light of possible ischemia mediating his arrest and the subsequent revascularization, reversible factors are correceted. On the other hand continoud entricular ectopy and NS-VT despite amidarone loading would make him higher risk. I would recommend proceeding with an electrophysiology study and an ICD implant if he is inducoible for VT. Otherwise medical management and re-evaluation of his ejection fraction after 90 days. Also, Life[facility]est for this 3-month waiting time post revascularization is advisable in this case. If his ejection fraction remains severely reduced aftre 3 months on optimal medical therapy,dual-chamber ICD implant, given his atrial arrhythmias. Thank you for allowing me to participate in the care of this patient. We will continue to follow. Also, in regard to his atrial fibrillation, I would recommend continuing the amiodarone for this 3-month medical management period to prevent any rate related drop in ejection fraction due to atrial fibrillation with RVR. Oral anticoagulation is a potential option post discharge. We discussed about the risk of driving for the next 6 months and he states, he plans to quit. Discussed these plans with Dr Varghese and we concurred. Otto keep NPO for EPS/ possible ICD implant am. Job ID: [id number]
[2019-11-28] MEDS: guaiFENesin ER 600 MG TAB PO SCH (20:57)
[2019-11-28] MEDS: Atorvastatin Calcium 40 MG TAB PO SCH (20:57)
[2019-11-28] MEDS: Carvedilol 3.125 MG TAB PO SCH (20:57)
[2019-11-28] MEDS: Senokot S 8.6-50 MG TAB PO SCH (20:58)
[2019-11-29] MEDS: Carvedilol 3.125 MG TAB PO SCH ×2 (05:17→21:10)
[2019-11-29] MEDS: Furosemide 20 MG/2 ML VIAL SLOW IVP SCH ×2 (05:17→16:56)
[2019-11-29 05:30] LABS: Anion Gap 15 mmol/L (10-20); BUN (Urea Nitrogen) 28 mg/dL (8.4-25.7); Calc. Creatinine Clearance 55 mL/min (70-130); Calcium 9.8 mg/dL (7.8-10.44); Carbon Dioxide 26 mmol/L (23-31); Chloride 106 mmol/L (98-107); Estimated GFR-MDRD 48; Glucose 92 mg/dL (80-115); Magnesium 2.3 mg/dL (1.6-2.6); Potassium 3.1 mmol/L (3.5-5.1); Sodium 144 mmol/L (136-145)
[2019-11-29 06:04] LABS: Band 1 % (5-11); Hemoglobin 15.1 g/dL (14.0-18.0); Lymphocytes 23 % (21-51); MDiff Complete? YES; Mean Corpuscular HGB CONC 31.6 g/dL (32.0-36.0); Mean Corpuscular Hemoglobin 30.6 pg (27.0-31.0); Mean Platelet Volume 9.2 fL (7.4-10.4); Monocytes 12 % (0-10); Neutrophil 64 % (42-75); Platelet Count 275 thou/uL (130-400); RBC Distribution Width 11.9 % (11.5-14.5); Red Blood Cell (RBC) Count 4.94 mill/uL (4.70-6.10); White Blood Cell (WBC) Count 8.7 thou/uL (4.8-10.8)
[2019-11-29] MEDS ORDERED: Potassium Chloride 20 MEQ TAB PO SCH ×2 (07:15→12:15)
[2019-11-29] MEDS: guaiFENesin ER 600 MG TAB PO SCH ×2 (09:28→21:09)
[2019-11-29] MEDS: cefTRIAXone\\ROCEPHIN 2 GM in Sodium Chloride 0.9% 100 ML IVPB SCH (09:28)
[2019-11-29] MEDS: TICAGRELOR 90 MG TABLET PO SCH ×2 (09:28→21:09)
[2019-11-29] MEDS: Aspirin 81 mg Enteric Coated Tablet PO SCH (09:28)
[2019-11-29] MEDS: Saccharomyces boulardii 250 MG CAP PO SCH (09:31)
[2019-11-29] MEDS: Guaifenesin DM 100-10/5 ML UDCUP PO PRN (09:40)
[2019-11-29] MEDS: Scopolamine 1.5 mg/72 hour Patch TD SCH (09:50)
[2019-11-29] MEDS: Senokot S 8.6-50 MG TAB PO SCH ×2 (09:51→21:10)
[2019-11-29] MEDS: Amiodarone 200 MG TAB PO SCH ×3 (09:51→21:10)
--- NOTE | 2019-11-29 13:11 | PDOC.CPN ---
- Subjective Date: 11/29/19 Time: 08:30 Interval history: The pt seen and examined. No overnight events. No cardiac complaints. - Objective Allergies/Adverse Reactions: Allergies Allergy/AdvReac Type Severity Reaction Status Date / Time No Known Allergies Allergy Verified 08/12/19 13:32 Visit Medications: Current Medications Acetaminophen (Tylenol) 650 mg PO Q4H PRN PRN Reason: Headache/Fever/Mild Pain (1-3) Last Admin: 11/26/19 16:53 Dose: 650 mg Acetaminophen (Tylenol) 650 mg [place] Q4H PRN PRN Reason: Headache/Fever/Mild Pain (1-3) Hydrocodone Bitart/Acetaminophen ([place] 5/325) 1 tab PO Q4H PRN PRN Reason: Moderate Pain (4-6) Last Admin: 11/28/19 15:33 Dose: 1 tab Amiodarone HCl (Cordarone) 200 mg PO TID [facility] Last Admin: 11/29/19 09:51 Dose: Not Given Amlodipine Besylate (Norvasc) 5 mg PO HS [facility] Aspirin (Ecotrin) 81 mg PO DAILY [facility] Last Admin: 11/29/19 09:28 Dose: 81 mg Atorvastatin Calcium (Lipitor) 80 mg PO HS [facility] Last Admin: 11/28/19 20:57 Dose: 80 mg Bisacodyl (Dulcolax) 10 mg [place] DAILYPRN PRN PRN Reason: Constipation Carvedilol (Coreg) 3.125 mg PO BID [facility] Last Admin: 11/29/19 05:17 Dose: 3.125 mg Dextrose/Water (Dextrose 50%) 25 gm SLOW IVP PRN PRN PRN Reason: Hypoglycemia Furosemide (Lasix) 20 mg SLOW IVP 0600,1400 [facility] Last Admin: 11/29/19 05:17 Dose: 20 mg Glucagon (Glucagon) 1 mg IM PRN PRN PRN Reason: Hypoglycemia Guaifenesin (Mucinex) 600 mg PO Q12HR [facility] Last Admin: 11/29/19 09:28 Dose: 600 mg Guaifenesin/Dextromethorphan (Robitussin Dm) 15 ml PO Q4H PRN PRN Reason: Cough Last Admin: 11/29/19 09:40 Dose: 15 ml Dextrose/Water (D5w) 1,000 mls @ 0 mls/hr IV .Q0M PRN PRN Reason: Hypoglycemia Ceftriaxone Sodium 2 gm/ (Sodium Chloride) 100 mls @ 100 mls/hr IVPB 0900 [facility] Last Admin: 11/29/19 09:28 Dose: 100 mls Insulin Human Lispro (Humalog) 0 units SC .MODERATE SLIDING SC PRN PRN Reason: Moderate Correctional Scale Insulin Human Lispro (Humalog) 0 units SC .BEDTIME SLIDING SC PRN PRN Reason: Bedtime Correctional Scale Miscellaneous Medication (Electrolyte Replacement Protocol) 1 each FS PRN PRN PRN Reason: ELECTROLYTE Miscellaneous Medication (Pharmacy To Dose) 1 each IVPB PRN PRN PRN Reason: Pharmacy to dose Nitroglycerin (Nitrostat) 0.4 mg SL Q5MIN PRN PRN Reason: Chest Pain Discontinue Previous Narcotic Pain Medications And Benzodiazepines 1 each FS .ONE [facility] Stop: 12/23/19 12:35 Ondansetron HCl (Zofran) 4 mg IVP Q6H PRN PRN Reason: Nausea/Vomiting Potassium Chloride (K-Dur) 20 meq PO BID-[facility] Potassium Chloride (K-Dur) 20 meq PO NOW [facility] Stop: 11/29/19 14:15 Last Admin: 11/29/19 12:51 Dose: 20 meq Saccharomyces Boulardii (Florastor) 250 mg PO DAILY [facility] Last Admin: 11/29/19 09:31 Dose: 250 mg Scopolamine (Transderm Scop) 1.5 mg TD Q3D [facility] Last Admin: 11/29/19 09:50 Dose: 1.5 mg Senna/Docusate Sodium (Senokot S) 2 tab PO BID [facility] Last Admin: 11/29/19 09:51 Dose: Not Given Sodium Chloride (Flush - Normal Saline) 10 ml IVF Q12HR [facility] Last Admin: 11/29/19 09:40 Dose: 10 ml Sodium Chloride (Flush - Normal Saline) 10 ml IVF PRN PRN PRN Reason: Saline Flush Ticagrelor (Brilinta) 90 mg PO BID [facility] Last Admin: 11/29/19 09:28 Dose: 90 mg Vital Signs & Weight: Vital Signs Temp Pulse Pulse Pulse Resp BP BP 11/29/19 09:30 62 62 161/97 H 175/101 H 11/29/19 09:01 62 63 161/91 H 154/93 H 11/29/19 08:00 97.9 F 59 L 16 11/29/19 04:40 97.6 F 61 16 BP Pulse Ox 11/29/19 09:30 11/29/19 09:01 11/29/19 08:00 172/101 H 96 11/29/19 04:40 167/76 H 93 L Admit Weight 213 lb Weight 203 lb 1.6 oz - Physical Exam General: alert & oriented x3 HEENT: mucus membranes moist Neck: supple neck Cardiac: regular rate and rhythm, S1/S2 Lungs: decreased breath sounds Neuro: cranial nerve 2-12 intact Extremities: no edema - Labs Result Diagrams: 11/30/19 08:20 11/30/19 07:14 Troponin/CKMB Troponin I 1.222 ng/mL (< 0.028) H* 11/23/19 13:25 - Telemetry Sinus rhythms and dysrhythmias: sinus rhythm - Assessment/Plan Assessment/Plan: 1. CAD with hx of CABG in 2016 and s/p HANNA in mid RCA graft on 11/22/2019 - On ASA, Brilinta and Coreg 3.125mg BID 2. sudden cardiac arrest with EF 10% - No Echo since 2017; If EF < 35% more than 3 months and/or due to s/p Cardiac arrest, possible plan for AICD placement 3. Ischemic CMY - EP study today 4. Acute on Chronic systolic HF - on Lasix 20mg IV BID; will start Coreg 3.125mg BID 5. Parox Afib - intermittent SR and AFib with well controlled HR with Amiodarone PO 200mg TID since PM on 11/27/2019 6. HTN - will start Norvasc 5mg qd from [employer] 7. LOUANN on CKD - not good candidate for Entresto or Aldactone at this time 8. HLD - on Lipitor 9. Elevated temp with possible 2/2 Aspiration PNA? - on ABX IV MAR reviewed Pt. seen and eval. by me. He underwent AICD placement today. Feels well. Continue to adjust meds and hopefully d/c in the next couple days. Chest clear. RRR at this time. antoinette
[2019-11-29] MEDS ORDERED: CEFAZOLIN 1 GM VIAL ONE (14:58)
[2019-11-29] MEDS ORDERED: Gentamicin 80 MG/2 ML VIAL ONE (14:58)
[2019-11-29] MEDS ORDERED: Fentanyl 100 MCG/2 ML VIAL ONE (15:19)
[2019-11-29] MEDS ORDERED: Propofol 1,000 MG/100 ML VIAL IV ONE (15:19)
[2019-11-29] MEDS ORDERED: Lidocaine 2% Jelly 5 ML TUBE ONE (15:35)
--- NOTE | 2019-11-29 18:02 | RAD ---
RADIOGRAPH CHEST 1 VIEW: 11/29/19 HISTORY: 64-year-old male status post defibrillator placement. COMPARISON: 11/27/19. FINDINGS: The thoracic aorta is tortuous and ectatic. There is no evidence of air space density, pneumothorax, or pulmonary edema. The lateral costophrenic angles are sharp. There is a new left sided generator, with ICD leads overlying the heart. Again noted are the sternotomy wires and the right subclavian ce ntral venous catheter. There is no cardiomegaly. Endotracheal tube and NG tube have been removed. IMPRESSION: 1) No acute pulmonary findings. 2) Ectasia of thoracic aorta. 3) Automatic implantable cardioverter/defibrillator placement without pneumothorax. hillary anaya POS: SARAH
[2019-11-29] MEDS ORDERED: Acetaminophen/Codeine 30-300mg Tablet PO PRN ×2 (18:30)
[2019-11-29] MEDS: Potassium Chloride 20 MEQ TAB PO SCH (18:56)
[2019-11-29] MEDS ORDERED: Cephalexin 250 MG CAP PO SCH (19:00)
--- NOTE | 2019-11-29 20:49 | PDOC.HOSPP ---
- Subjective Encounter Date: 11/29/19 Encounter Time: 09:00 Subjective: Patient seen and examined for CHF. No CP. No new complaints. No overnight events - Objective Vital Signs & Weight: Vital Signs (12 hours) Temp Pulse Pulse Pulse Resp BP BP 11/29/19 19:20 97.5 F L 60 18 11/29/19 18:00 96.8 F L 65 11/29/19 14:33 155/100 H 11/29/19 12:00 98.5 F 72 16 11/29/19 09:30 62 62 161/97 H 175/101 H 11/29/19 09:01 62 63 161/91 H 154/93 H BP BP BP Pulse Ox 11/29/19 19:20 146/96 H 96 11/29/19 18:00 151/68 H 96 11/29/19 14:33 11/29/19 12:00 156/100 H 11/29/19 09:30 11/29/19 09:01 Weight Admit Weight 213 lb Weight 203 lb 1.6 oz Most Recent Monitor Data Heart Rate from ECG 78 NIBP 143/88 NIBP BP-Mean 106 Respiration from ECG 12 SpO2 99 I&O: 11/28/19 11/29/19 11/30/19 06:59 06:59 06:59 Intake Total 1071.9 940 50 Output Total 1660 3275 400 Balance -588.1 -2335 -350 Result Diagrams: 11/29/19 03:32 11/29/19 03:32 Additional Labs: Accuchecks 11/29/19 11/29/19 11/29/19 18:44 11:15 05:50 POC Glucose 83 91 98 11/29/19 00:14 POC Glucose 89 EKG Reviewed by me: Yes (Tele SR) Hospitalist ROS - Review of Systems Respiratory: reports: SOB with excertion. denies: cough, dry, shortness of breath, hemoptysis, pleuritic pain, sputum, wheezing, other Cardiovascular: denies: chest pain, palpitations, orthopnea, paroxysmal noc. dyspnea, edema, light headedness, other Gastrointestinal: denies: nausea, vomiting, abdominal pain, diarrhea, constipation, melena, hematochezia, other - Medication Medications: Active Medications Generic Name Dose Route Start Last Admin Trade Name Freq PRN Reason Stop Dose Admin Acetaminophen 650 mg 11/23/19 12:21 11/26/19 16:53 Tylenol PO 650 mg Q4H PRN Administration Headache/Fever/Mild Pain (1-3) Hydrocodone Bitart/Acetaminophen 1 tab 11/27/19 21:21 11/28/19 15:33 [place] 5/325 PO 1 tab Q4H PRN Administration Moderate Pain (4-6) Amiodarone HCl 200 mg 11/27/19 21:00 11/29/19 16:57 Cordarone PO Not Given TID KETAN Aspirin 81 mg 11/25/19 09:00 11/29/19 09:28 Ecotrin PO 81 mg DAILY KETAN Administration Atorvastatin Calcium 80 mg 11/23/19 21:00 11/28/19 20:57 Lipitor PO 80 mg HS KETAN Administration Carvedilol 3.125 mg 11/28/19 21:00 11/29/19 05:17 Coreg PO 3.125 mg BID KETAN Administration Furosemide 20 mg 11/23/19 14:00 11/29/19 16:56 Lasix SLOW IVP Not Given 0600,1400 K[facility]AN Guaifenesin 600 mg 11/28/19 21:00 11/29/19 09:28 Mucinex PO 600 mg Q12HR KETAN Administration Guaifenesin/Dextromethorphan 15 ml 11/23/19 12:21 11/29/19 09:40 Robitussin Dm PO 15 ml Q4H PRN Administration Cough Ceftriaxone Sodium 2 gm/ 100 mls @ 100 mls/hr 11/27/19 09:00 11/29/19 09:28 Sodium Chloride IVPB 100 mls 0900 KETAN Administration Potassium Chloride 20 meq 11/29/19 17:00 11/29/19 18:56 K-Dur PO 20 meq BID-WM KETAN Administration Saccharomyces Boulardii 250 mg 11/29/19 09:00 11/29/19 09:31 Florastor PO 250 mg DAILY [facility] Administration Scopolamine 1.5 mg 11/26/19 10:00 11/29/19 09:50 Transderm Scop TD 1.5 mg Q3D KETAN Administration Senna/Docusate Sodium 2 tab 11/28/19 21:00 11/29/19 09:51 Senokot S PO Not Given BID [facility]TE[facility] Sodium Chloride 10 ml 11/27/19 09:00 11/29/19 09:40 Flush - Normal Saline IVF 10 ml Q12HR KETAN Administration Ticagrelor 90 mg 11/23/19 21:00 11/29/19 09:28 Brilinta PO 90 mg BID KETAN Administration - Exam General Appearance: NAD Neck: supple, no JVD Heart: RRR, no gallops Respiratory: no wheezes, rhonchi Gastrointestinal: soft, non-distended Extremities: no cyanosis Neurological: no weakness Psychiatric: normal affect, A&O x 3 Hosp A/P - Plan DVT proph w/lovenox, DVT proph w/SCDs Cardiac arrest/NSTEMI/V fib s/p CV -s/p stent placement to RCA graft -on ASA/Brilinta Acute respiratory failure with hypoxia with ?Aspiration Pneumonitis -on IV Ceftriaxone -extubated 11/26 Acute on Chronic systolic HF -on IV Lasix -on Coreg -not on ACEI/ARB or Aldactone due to CKD LOUANN on CKD 3/Hypokalemia Par Afib -on Amiodarone loading HTN HLD CAD s/p CABG 2016 PLAN: AICD today Replace Potassium Cont IV Ceftriaxone Cont PT AM labs Cont other meds Refuses HHC or SNF
[2019-11-29] MEDS ORDERED: Amlodipine 5 MG TAB PO SCH (21:00)
[2019-11-29] MEDS: Atorvastatin Calcium 40 MG TAB PO SCH (21:09)
[2019-11-30] MEDS: Furosemide 20 MG/2 ML VIAL SLOW IVP SCH (06:19)
[2019-11-30] MEDS: HYDROcodone/Acetaminophen 5/325 mg Tablet PO PRN ×2 (06:32→10:02)
--- NOTE | 2019-11-30 07:26 | PDOC.HOSPP ---
- Subjective Encounter Date: 11/30/19 Encounter Time: 13:30 Subjective: Patient seen and examined for CHF. No new complaints. No overnight events - Objective Vital Signs & Weight: Vital Signs (12 hours) Temp Pulse Resp BP BP Pulse Ox 11/30/19 03:08 98.9 F 74 18 141/91 H 94 L 11/29/19 21:09 60 171/111 H Weight Admit Weight 213 lb Weight 203 lb Most Recent Monitor Data Heart Rate from ECG 78 NIBP 143/88 NIBP BP-Mean 106 Respiration from ECG 12 SpO2 99 I&O: 11/29/19 11/30/19 12/01/19 06:59 06:59 06:59 Intake Total 940 450 Output Total 3275 1200 Balance -2335 -750 Result Diagrams: 11/30/19 08:20 11/30/19 07:14 Additional Labs: Accuchecks 11/30/19 11/30/19 11/29/19 05:57 00:20 20:25 POC Glucose 89 96 123 H 11/29/19 11/29/19 18:44 11:15 POC Glucose 83 91 EKG Reviewed by me: Yes (Tele paced) Hospitalist ROS - Review of Systems Respiratory: denies: cough, dry, shortness of breath, hemoptysis, SOB with excertion, pleuritic pain, sputum, wheezing, other Cardiovascular: denies: chest pain, palpitations, orthopnea, paroxysmal noc. dyspnea, edema, light headedness, other - Medication Medications: Active Medications Generic Name Dose Route Start Last Admin Trade Name Freq PRN Reason Stop Dose Admin Acetaminophen 650 mg 11/23/19 12:21 11/26/19 16:53 Tylenol PO 650 mg Q4H PRN Administration Headache/Fever/Mild Pain (1-3) Hydrocodone Bitart/Acetaminophen 1 tab 11/27/19 21:21 11/30/19 06:32 [place] 5/325 PO 1 tab Q4H PRN Administration Moderate Pain (4-6) Amiodarone HCl 200 mg 11/27/19 21:00 11/29/19 21:10 Cordarone PO 200 mg TID KETAN Administration Amlodipine Besylate 5 mg 11/29/19 21:00 11/29/19 21:09 Norvasc PO 5 mg HS KETAN Administration Aspirin 81 mg 11/25/19 09:00 11/29/19 09:28 Ecotrin PO 81 mg DAILY K[facility]AN Administration Atorvastatin Calcium 80 mg 11/23/19 21:00 11/29/19 21:09 Lipitor PO 80 mg HS KETAN Administration Carvedilol 3.125 mg 11/28/19 21:00 11/29/19 21:10 Coreg PO 3.125 mg BID KETAN Administration Furosemide 20 mg 11/23/19 14:00 11/30/19 06:19 Lasix SLOW IVP 20 mg 0600,1400 KETAN Administration Guaifenesin 600 mg 11/28/19 21:00 11/29/19 21:09 Mucinex PO 600 mg Q12HR KETAN Administration Guaifenesin/Dextromethorphan 15 ml 11/23/19 12:21 11/29/19 09:40 Robitussin Dm PO 15 ml Q4H PRN Administration Cough Ceftriaxone Sodium 2 gm/ 100 mls @ 100 mls/hr 11/27/19 09:00 11/29/19 09:28 Sodium Chloride IVPB 100 mls 0900 KETAN Administration Potassium Chloride 20 meq 11/29/19 17:00 11/29/19 18:56 K-Dur PO 20 meq BID-WM KETAN Administration Saccharomyces Boulardii 250 mg 11/29/19 09:00 11/29/19 09:31 Florastor PO 250 mg DAILY [facility] Administration Scopolamine 1.5 mg 11/26/19 10:00 11/29/19 09:50 Transderm Scop TD 1.5 mg Q3D KETAN Administration Senna/Docusate Sodium 2 tab 11/28/19 21:00 11/29/19 21:10 Senokot S PO Not Given BID [facility] Sodium Chloride 10 ml 11/27/19 09:00 11/29/19 21:11 Flush - Normal Saline IVF 10 ml Q12HR KETAN Administration Ticagrelor 90 mg 11/23/19 21:00 11/29/19 21:09 Brilinta PO 90 mg BID KETAN Administration - Exam General Appearance: NAD Neck: supple, no JVD Heart: RRR, no gallops Respiratory: no wheezes, no ronchi Gastrointestinal: soft, non-tender, normal bowel sounds Extremities: no cyanosis Hosp A/P - Plan DVT proph w/lovenox, DVT proph w/SCDs Cardiac arrest/NSTEMI/V fib s/p CV -s/p stent placement to RCA graft -on ASA/Brilinta -s/p AICD 11/28 Acute respiratory failure with hypoxia with ?Aspiration Pneumonitis -on IV Ceftriaxone -extubated 11/26 Acute on Chronic systolic HF -on IV Lasix -on Coreg -not on ACEI/ARB or Aldactone due to CKD LOUANN on CKD 3 Hypokalemia -replaced Par Afib -on Amiodarone loading HTN HLD CAD s/p CABG 2016 Physical deconditioning -Refuses C or SNF PLAN: DC IV Ceftriaxone - Start Keflex for AICD prophylaxis Cont ASA/Bilinta Cont PT Cont other meds DC planning later today or in AM if ok with consultants
[2019-11-30 08:03] LABS: Anion Gap 19 mmol/L (10-20); BUN (Urea Nitrogen) 27 mg/dL (8.4-25.7); Calc. Creatinine Clearance 62 mL/min (70-130); Calcium 9.4 mg/dL (7.8-10.44); Carbon Dioxide 20 mmol/L (23-31); Chloride 108 mmol/L (98-107); Estimated GFR-MDRD 55; Glucose 78 mg/dL (80-115); Magnesium 2.2 mg/dL (1.6-2.6); Potassium 4.5 mmol/L (3.5-5.1); Sodium 142 mmol/L (136-145)
[2019-11-30 08:34] LABS: Hemoglobin 17.3 g/dL (14.0-18.0); Mean Corpuscular HGB CONC 30.9 g/dL (32.0-36.0); Mean Corpuscular Hemoglobin 30.2 pg (27.0-31.0); Mean Corpuscular Volume 97.6 fL (78.0-98.0); Mean Platelet Volume 8.9 fL (7.4-10.4); Platelet Count 282 thou/uL (130-400); Red Blood Cell (RBC) Count 5.73 mill/uL (4.70-6.10); White Blood Cell (WBC) Count 8.6 thou/uL (4.8-10.8)
[2019-11-30] MEDS ORDERED: Potassium Chloride 20 MEQ TAB PO SCH ×2 (08:47→09:00)
[2019-11-30 09:30] LABS: Eosinophils 1 % (0-10); Lymphocytes 22 % (21-51); MDiff Complete? YES; Monocytes 10 % (0-10); Neutrophil 66 % (42-75); Platelet Morphology Comment Appears Adequate; RBC Morphology Normal; Reactive Lymphocytes 1 % (0-10)
[2019-11-30] MEDS: guaiFENesin ER 600 MG TAB PO SCH ×2 (10:00→20:17)
[2019-11-30] MEDS: Amiodarone 200 MG TAB PO SCH ×3 (10:00→20:16)
[2019-11-30] MEDS: Carvedilol 3.125 MG TAB PO SCH (10:00)
[2019-11-30] MEDS: Saccharomyces boulardii 250 MG CAP PO SCH (10:00)
[2019-11-30] MEDS: TICAGRELOR 90 MG TABLET PO SCH ×2 (10:00→20:17)
[2019-11-30] MEDS: Guaifenesin DM 100-10/5 ML UDCUP PO PRN (10:01)
[2019-11-30] MEDS: Aspirin 81 mg Enteric Coated Tablet PO SCH (10:01)
[2019-11-30] MEDS: Senokot S 8.6-50 MG TAB PO SCH ×3 (10:01→20:17)
[2019-11-30] MEDS: cefTRIAXone\\ROCEPHIN 2 GM in Sodium Chloride 0.9% 100 ML IVPB SCH (10:03)
--- NOTE | 2019-11-30 11:30 | OP ---
DATE OF PROCEDURE: 11/29/2019 PROCEDURE: Electrophysiology study. REASON FOR PROCEDURE: Mr. Johnson is a 64-year-old man with prior history of coronary artery disease, prior bypass surgery, presented after cardiac arrest, a fresh clot in the SVG to RCA was found and drug-eluting stent was placed. Due to atrial fibrillation and ventricular arrhythmia, he was placed on amiodarone, despite nonsustained VT events still occur. His LVEF has decreased from prior 35-40% to 10% to 15%. He was referred for an EP study for consideration for ICD implant based on the MUSTT protocol. DESCRIPTION OF PROCEDURE: The patient received deep sedation by Anesthesia specialist. The right femoral venous area was prepped, draped, and anesthetized using subcutaneous lidocaine. Under ultrasound guidance, the right femoral vein was cannulated and an 8-[place] short sheath was introduced. Through this, a decapolar catheter was advanced into the right atrium and His bundle, RV and CS position. Pacing, mapping, and recording were performed at each location including pacing the left atrium and the LV via the CS and side branches. Results: The baseline rhythm was sinus rhythm with cycle length at 860 milliseconds. The AH was 76 milliseconds, HV 41 milliseconds, KY 142 milliseconds, QRS 71 millisecond, QT 442 milliseconds. The sinus node recovery time was corrected to 347 milliseconds. AV Wenckebach cycle length was seen at 420 milliseconds. No retrograde conduction was seen at 700 milliseconds ventricular pacing. AV tatyana ERP measured at 600/320 milliseconds without definite jump except for prior to the block is seen. No dual AV node physiology was present. Burst atrial pacing down to 200 milliseconds induced only nonsustained atrial flutter. Ventricular pacing was performed via the CS left ventricular side branch. Ventricular ERP was achieved at 600/260 milliseconds. With ventricular extrastimuli sequence of 600/290/210, we induced a ventricular tachycardia, which was right bundle, inferior axis in morphology with cycle length of 230 milliseconds. Burst atrial pacing did not terminate the arrhythmia. Due to hemodynamic instability, defibrillation was performed at 300 joules, restoring sinus rhythm. The cardiac silhouette did not change throughout the procedure. The left subclavian vein patency was checked with the catheter placement. CONCLUSION: 1. Easily inducible ventricular tachycardia, hemodynamically unstable requiring defibrillation. 2. Borderline normal sinus and AV tatyana function and His-Purkinje function. 3. No evidence of accessory pathway or dual AV tatyana physiology. 4. Only nonsustained atrial arrhythmias induced. PLAN: The patient is at high risk for future ventricular arrhythmias despite amiodarone therapy, even though the recent revascularization. I would proceed with dual- chamber ICD, atrial lead hence he has history of atrial arrhythmias and continued amiodarone loading makes him prone to bradycardia. Job ID: [id number] MTDD
--- NOTE | 2019-11-30 12:07 | PDOC.EP ---
- Subjective Date: 11/30/19 Time: 12:06 Interval History: follow-up after EP study and ICD implant. He is feeling fair today reporting some mild discomfort at that ICD implant site. Mostly his concern is for his chest discomfort, chest wall pain after CPR. he also reports indigestion and acid reflux - Review of Systems Constitutional: denies: chills, fever, malaise, sweats, weakness Cardiology: reports: chest pain. denies: heart racing, light headedness, palpitations, passing out Gastrointestinal: reports: other ( gastro-esophageal reflux disease). denies: abdominal pain, constipation, nausea, vomitting Musculoskeletal: reports: unstable gait, falls - Objective Allergies/Adverse Reactions: Allergies Allergy/AdvReac Type Severity Reaction Status Date / Time No Known Allergies Allergy Verified 08/12/19 13:32 Current Medications Acetaminophen (Tylenol) 650 mg PO Q4H PRN PRN Reason: Headache/Fever/Mild Pain (1-3) Last Admin: 11/26/19 16:53 Dose: 650 mg Acetaminophen (Tylenol) 650 mg [place] Q4H PRN PRN Reason: Headache/Fever/Mild Pain (1-3) Acetaminophen/Codeine Phosphate (Tylenol #3) 1 tab PO Q4H PRN PRN Reason: Mild Pain (1-3) Acetaminophen/Codeine Phosphate (Tylenol #3) 2 tab PO Q4H PRN PRN Reason: Moderate Pain (4-6) Hydrocodone Bitart/Acetaminophen ([place] 5/325) 1 tab PO Q4H PRN PRN Reason: Moderate Pain (4-6) Last Admin: 11/30/19 10:02 Dose: 1 tab Amiodarone HCl (Cordarone) 200 mg PO TID [facility] Last Admin: 11/30/19 10:00 Dose: 200 mg Amlodipine Besylate (Norvasc) 5 mg PO [facility] Last Admin: 11/29/19 21:09 Dose: 5 mg Aspirin (Ecotrin) 81 mg PO DAILY [facility] Last Admin: 11/30/19 10:01 Dose: 81 mg Atorvastatin Calcium (Lipitor) 80 mg PO [facility] Last Admin: 11/29/19 21:09 Dose: 80 mg Bisacodyl (Dulcolax) 10 mg [place] DAILYPRN PRN PRN Reason: Constipation Carvedilol (Coreg) 3.125 mg PO BID [facility] Last Admin: 11/30/19 10:00 Dose: 3.125 mg Cephalexin (Keflex) 500 mg PO Q6H [facility] Stop: 12/06/19 19:01 Dextrose/Water (Dextrose 50%) 25 gm SLOW IVP PRN PRN PRN Reason: Hypoglycemia Furosemide (Lasix) 20 mg SLOW IVP 0600,1400 [facility] Last Admin: 11/30/19 06:19 Dose: 20 mg Glucagon (Glucagon) 1 mg IM PRN PRN PRN Reason: Hypoglycemia Guaifenesin (Mucinex) 600 mg PO Q12HR [facility] Last Admin: 11/30/19 10:00 Dose: 600 mg Guaifenesin/Dextromethorphan (Robitussin Dm) 15 ml PO Q4H PRN PRN Reason: Cough Last Admin: 11/30/19 10:01 Dose: 15 ml Dextrose/Water (D5w) 1,000 mls @ 0 mls/hr IV .Q0M PRN PRN Reason: Hypoglycemia Ceftriaxone Sodium 2 gm/ (Sodium Chloride) 100 mls @ 100 mls/hr IVPB 0900 [facility] Last Admin: 11/30/19 10:03 Dose: 100 mls Insulin Human Lispro (Humalog) 0 units SC .MODERATE SLIDING SC PRN PRN Reason: Moderate Correctional Scale Insulin Human Lispro (Humalog) 0 units SC .BEDTIME SLIDING SC PRN PRN Reason: Bedtime Correctional Scale Miscellaneous Medication (Electrolyte Replacement Protocol) 1 each FS PRN PRN PRN Reason: ELECTROLYTE Nitroglycerin (Nitrostat) 0.4 mg SL Q5MIN PRN PRN Reason: Chest Pain Discontinue Previous Narcotic Pain Medications And Benzodiazepines 1 each FS .ONE [facility] Stop: 12/23/19 12:35 Ondansetron HCl (Zofran) 4 mg IVP Q6H PRN PRN Reason: Nausea/Vomiting Potassium Chloride (K-Dur) 20 meq PO BID-[facility] Saccharomyces Boulardii (Florastor) 250 mg PO DAILY [facility] Last Admin: 11/30/19 10:00 Dose: 250 mg Scopolamine (Transderm Scop) 1.5 mg TD Q3D [facility] Last Admin: 11/29/19 09:50 Dose: 1.5 mg Senna/Docusate Sodium (Senokot S) 2 tab PO BID [facility] Last Admin: 11/30/19 10:14 Dose: Not Given Sodium Chloride (Flush - Normal Saline) 10 ml IVF Q12HR [facility] Last Admin: 11/30/19 10:04 Dose: 10 ml Sodium Chloride (Flush - Normal Saline) 10 ml IVF PRN PRN PRN Reason: Saline Flush Ticagrelor (Brilinta) 90 mg PO BID [facility] Last Admin: 11/30/19 10:00 Dose: 90 mg Vital Signs & Weight: Vital Signs Temp Pulse Resp BP Pulse Ox 11/30/19 03:08 98.9 F 74 18 141/91 H 94 L Admit Weight 213 lb Weight 203 lb I/O: I/O 11/29/19 11/30/19 12/01/19 06:59 06:59 06:59 Intake Total 940 450 Output Total 3275 1200 Balance -6490 -750 - Quality Measures Condition: Atrial Fibrillation/Flutter (hx or current) - Physical Exam General: alert & oriented x3, appears well, no apparent distress, speech clear, affect appropriate HEENT: mucus membranes moist, normocephaly Neck: supple neck, midline trachea, no JVD/HJR, no lymphadenopathy Cardiology: regular rate and rhythm, no murmur, PMI nondisplaced Lungs: clear to auscultation, normal breath sounds, no wheeze, rales, rhonchi Neurology: cranial nerve 2-12 intact, grossly intact, no lateralizing findings Abdomen: unremarkable, active bowel sounds, no pulsations/bruits Extremities: dry, strong pulses, warm Skin: device site stable w/o swelling, left sided device. negative: bruising, drainage, erosion, hematoma - Chadsvasc Risk factors Congestive heart failure: 1 Age 65-74: 1 Vascular disease: 1 Risk Score: 3 - Labs Result Diagrams: 11/30/19 08:20 11/30/19 07:14 - EKG Interpretation EKG Method: Telemetry EKG shows: Sinus rhythm - Device Device: dual, defibrillator Device Result: [employer] - Assessment/Plan Assessment/Plan: 1. status post cardiac arrest 2. coronary artery disease status post PCI 3. nonsustained ventricular tachycardia 4. easily inducible for VT during electrophysiology study 5. dual-chamber ICD implant 11/29/2019, [employer] 6. atrial fibrillation, paroxysmal 7. dual antiplatelet therapy Mr. Johnson did well and his EP study and ICD implant yesterday. He was easily inducible for ventricular tachycardia even with recent amiodarone. Chest x-ray is stable post ICD implant. ICD interrogation this morning reveals stable function and leads are stable. will continue amiodarone loading taper due to recent ventricular fibrillation arrest. This is also nicely suppressing his atrial fibrillation. I would suggest continuing with dual antiplatelet therapy. If seen to have long episodes of atrial fibrillation despite amiodarone could consider adding anticoagulation but would avoid triple therapy.
[2019-11-30 13:08] VITALS: BMI 26.0
--- NOTE | 2019-11-30 13:32 | PDOC.CPN ---
- Subjective Date: 11/30/19 Time: 13:57 Interval history: The pt seen and examined. No overnight events. No cardiac complaints. - Objective Allergies/Adverse Reactions: Allergies Allergy/AdvReac Type Severity Reaction Status Date / Time No Known Allergies Allergy Verified 08/12/19 13:32 Visit Medications: Current Medications Acetaminophen (Tylenol) 650 mg PO Q4H PRN PRN Reason: Headache/Fever/Mild Pain (1-3) Last Admin: 11/26/19 16:53 Dose: 650 mg Acetaminophen (Tylenol) 650 mg CA Q4H PRN PRN Reason: Headache/Fever/Mild Pain (1-3) Acetaminophen/Codeine Phosphate (Tylenol #3) 1 tab PO Q4H PRN PRN Reason: Mild Pain (1-3) Acetaminophen/Codeine Phosphate (Tylenol #3) 2 tab PO Q4H PRN PRN Reason: Moderate Pain (4-6) Hydrocodone Bitart/Acetaminophen ([place] 5/325) 1 tab PO Q4H PRN PRN Reason: Moderate Pain (4-6) Last Admin: 11/30/19 10:02 Dose: 1 tab Amiodarone HCl (Cordarone) 200 mg PO TID [facility] Last Admin: 11/30/19 10:00 Dose: 200 mg Amlodipine Besylate (Norvasc) 5 mg PO HS [facility] Last Admin: 11/29/19 21:09 Dose: 5 mg Aspirin (Ecotrin) 81 mg PO DAILY [facility] Last Admin: 11/30/19 10:01 Dose: 81 mg Atorvastatin Calcium (Lipitor) 80 mg PO HS [facility] Last Admin: 11/29/19 21:09 Dose: 80 mg Bisacodyl (Dulcolax) 10 mg CA DAILYPRN PRN PRN Reason: Constipation Carvedilol (Coreg) 3.125 mg PO BID [facility] Last Admin: 11/30/19 10:00 Dose: 3.125 mg Cephalexin (Keflex) 500 mg PO Q6H [facility] Stop: 12/06/19 19:01 Dextrose/Water (Dextrose 50%) 25 gm SLOW IVP PRN PRN PRN Reason: Hypoglycemia Furosemide (Lasix) 20 mg SLOW IVP 0600,1400 [facility] Last Admin: 11/30/19 06:19 Dose: 20 mg Glucagon (Glucagon) 1 mg IM PRN PRN PRN Reason: Hypoglycemia Guaifenesin (Mucinex) 600 mg PO Q12HR [facility] Last Admin: 11/30/19 10:00 Dose: 600 mg Guaifenesin/Dextromethorphan (Robitussin Dm) 15 ml PO Q4H PRN PRN Reason: Cough Last Admin: 11/30/19 10:01 Dose: 15 ml Dextrose/Water (D5w) 1,000 mls @ 0 mls/hr IV .Q0M PRN PRN Reason: Hypoglycemia Ceftriaxone Sodium 2 gm/ (Sodium Chloride) 100 mls @ 100 mls/hr IVPB 0900 [facility] Last Admin: 11/30/19 10:03 Dose: 100 mls Insulin Human Lispro (Humalog) 0 units SC .MODERATE SLIDING SC PRN PRN Reason: Moderate Correctional Scale Insulin Human Lispro (Humalog) 0 units SC .BEDTIME SLIDING SC PRN PRN Reason: Bedtime Correctional Scale Miscellaneous Medication (Electrolyte Replacement Protocol) 1 each FS PRN PRN PRN Reason: ELECTROLYTE Nitroglycerin (Nitrostat) 0.4 mg SL Q5MIN PRN PRN Reason: Chest Pain Discontinue Previous Narcotic Pain Medications And Benzodiazepines 1 each FS .ONE [facility] Stop: 12/23/19 12:35 Ondansetron HCl (Zofran) 4 mg IVP Q6H PRN PRN Reason: Nausea/Vomiting Potassium Chloride (K-Dur) 20 meq PO BID-[facility] Saccharomyces Boulardii (Florastor) 250 mg PO DAILY [facility] Last Admin: 11/30/19 10:00 Dose: 250 mg Scopolamine (Transderm Scop) 1.5 mg TD Q3D [facility] Last Admin: 11/29/19 09:50 Dose: 1.5 mg Senna/Docusate Sodium (Senokot S) 2 tab PO BID [facility] Last Admin: 11/30/19 10:14 Dose: Not Given Sodium Chloride (Flush - Normal Saline) 10 ml IVF Q12HR [facility] Last Admin: 11/30/19 10:04 Dose: 10 ml Sodium Chloride (Flush - Normal Saline) 10 ml IVF PRN PRN PRN Reason: Saline Flush Ticagrelor (Brilinta) 90 mg PO BID [facility] Last Admin: 11/30/19 10:00 Dose: 90 mg Vital Signs & Weight: Vital Signs Temp Pulse Resp BP Pulse Ox 11/30/19 08:30 97.5 F L 60 16 147/90 H 93 L 11/30/19 03:08 98.9 F 74 18 141/91 H 94 L Admit Weight 213 lb 10.047 oz Weight 203 lb - Physical Exam General: alert & oriented x3 HEENT: mucus membranes moist Neck: supple neck Cardiac: regular rate and rhythm, S1/S2 Lungs: clear to auscultation Neuro: cranial nerve 2-12 intact Abdomen: no masses Extremities: no edema - Labs Result Diagrams: 11/30/19 08:20 11/30/19 07:14 Troponin/CKMB Troponin I 1.222 ng/mL (< 0.028) H* 11/23/19 13:25 - Telemetry Sinus rhythms and dysrhythmias: other (SR with A paced) - Assessment/Plan Assessment/Plan: 1. CAD with hx of CABG in 2017 and s/p HANNA in mid RCA graft on 11/22/2019 - On ASA, Brilinta and Coreg 6.25mg BID 2. sudden cardiac arrest with EF 10% - S/p AICD placement on 11/29/2019; On Amiodarone taper 3. Ischemic CMY - s/p AICD placement on 11/29/2019 4. Acute on Chronic systolic HF - on Lasix 20mg IV BID, which will be change to 40mg PO daily; on Coreg 6.25mg BID; not good candidate for Entresto or Aldactone at this time due to hx of CKD 5. Parox Afib - intermittent SR and AFib with well controlled HR with Amiodarone PO 200mg TID since PM on 11/27/2019 6. HTN - will increase Coreg to 6.25mg BID and stop Norvasc 5mg qd since he had AICD placement and for CHF management 7. LOUANN on CKD stage 3 - not good candidate for Entresto or Aldactone at this time 8. HLD - on Lipitor 9. Elevated temp with possible 2/2 Aspiration PNA? - on ABX IV 10. Sleep Apnea - per the pt, he could sleep well last night with Cpap 11. ETOH abuse - Strongly recommend ETOH cessation MAR reviewed * if stable, the pt most likely d/c home this afternoon or tomorrow AM? Pt. seen and eval. by me. He underwent AICD placement yesterday.. Feels well. Continue to adjust meds and hopefully d/c in the next couple days. Chest clear. RRR at this time.
[2019-11-30] MEDS ORDERED: Carvedilol 3.125 MG TAB PO SCH (14:00)
[2019-11-30] MEDS: Potassium Chloride 20 MEQ TAB PO SCH ×2 (14:23→18:09)
[2019-11-30] MEDS: Carvedilol 6.25 MG TAB PO SCH (20:16)
[2019-11-30] MEDS: Atorvastatin Calcium 40 MG TAB PO SCH (20:16)
[2019-12-01] MEDS ORDERED: Furosemide 40 MG TAB PO SCH (07:30)
[2019-12-01] MEDS: HYDROcodone/Acetaminophen 5/325 mg Tablet PO PRN (08:31)
[2019-12-01] MEDS: Aspirin 81 mg Enteric Coated Tablet PO SCH (08:31)
[2019-12-01] MEDS: Amiodarone 200 MG TAB PO SCH (08:32)
[2019-12-01] MEDS: Guaifenesin DM 100-10/5 ML UDCUP PO PRN (08:32)
[2019-12-01] MEDS: cefTRIAXone\\ROCEPHIN 2 GM in Sodium Chloride 0.9% 100 ML IVPB SCH (08:32)
[2019-12-01] MEDS: Saccharomyces boulardii 250 MG CAP PO SCH (08:32)
[2019-12-01] MEDS: Potassium Chloride 20 MEQ TAB PO SCH (08:33)
[2019-12-01] MEDS: TICAGRELOR 90 MG TABLET PO SCH (08:33)
[2019-12-01] MEDS: guaiFENesin ER 600 MG TAB PO SCH (08:33)
[2019-12-01] MEDS: Senokot S 8.6-50 MG TAB PO SCH (08:34)
[2019-12-01] MEDS: Carvedilol 6.25 MG TAB PO SCH (08:34)
--- NOTE | 2019-12-01 12:00 | PDOC.CPN ---
- Subjective Date: 12/01/19 Time: 12:03 Interval history: The pt seen and examined. No overnight events. No cardiac complaints. - Objective Allergies/Adverse Reactions: Allergies Allergy/AdvReac Type Severity Reaction Status Date / Time No Known Allergies Allergy Verified 08/12/19 13:32 Visit Medications: Current Medications Acetaminophen (Tylenol) 650 mg PO Q4H PRN PRN Reason: Headache/Fever/Mild Pain (1-3) Last Admin: 11/26/19 16:53 Dose: 650 mg Acetaminophen (Tylenol) 650 mg [place] Q4H PRN PRN Reason: Headache/Fever/Mild Pain (1-3) Acetaminophen/Codeine Phosphate (Tylenol #3) 1 tab PO Q4H PRN PRN Reason: Mild Pain (1-3) Acetaminophen/Codeine Phosphate (Tylenol #3) 2 tab PO Q4H PRN PRN Reason: Moderate Pain (4-6) Hydrocodone Bitart/Acetaminophen ([place] 5/325) 1 tab PO Q4H PRN PRN Reason: Moderate Pain (4-6) Last Admin: 12/01/19 08:31 Dose: 1 tab Amiodarone HCl (Cordarone) 200 mg PO TID [facility] Last Admin: 12/01/19 08:32 Dose: 200 mg Aspirin (Ecotrin) 81 mg PO DAILY [facility] Last Admin: 12/01/19 08:31 Dose: 81 mg Atorvastatin Calcium (Lipitor) 80 mg PO HS [facility] Last Admin: 11/30/19 20:16 Dose: 80 mg Bisacodyl (Dulcolax) 10 mg [place] DAILYPRN PRN PRN Reason: Constipation Carvedilol (Coreg) 6.25 mg PO BID [facility] Last Admin: 12/01/19 08:34 Dose: 6.25 mg Cephalexin (Keflex) 500 mg PO Q6H [facility] Stop: 12/06/19 19:01 Dextrose/Water (Dextrose 50%) 25 gm SLOW IVP PRN PRN PRN Reason: Hypoglycemia Furosemide (Lasix) 40 mg PO DAILY-AC [facility] Last Admin: 12/01/19 08:33 Dose: 40 mg Glucagon (Glucagon) 1 mg IM PRN PRN PRN Reason: Hypoglycemia Guaifenesin (Mucinex) 600 mg PO Q12HR [facility] Last Admin: 12/01/19 08:33 Dose: 600 mg Guaifenesin/Dextromethorphan (Robitussin Dm) 15 ml PO Q4H PRN PRN Reason: Cough Last Admin: 12/01/19 08:32 Dose: 15 ml Dextrose/Water (D5w) 1,000 mls @ 0 mls/hr IV .Q0M PRN PRN Reason: Hypoglycemia Ceftriaxone Sodium 2 gm/ (Sodium Chloride) 100 mls @ 100 mls/hr IVPB 0900 [facility] Last Admin: 12/01/19 08:32 Dose: 100 mls Insulin Human Lispro (Humalog) 0 units SC .MODERATE SLIDING SC PRN PRN Reason: Moderate Correctional Scale Insulin Human Lispro (Humalog) 0 units SC .BEDTIME SLIDING SC PRN PRN Reason: Bedtime Correctional Scale Miscellaneous Medication (Electrolyte Replacement Protocol) 1 each FS PRN PRN PRN Reason: ELECTROLYTE Nitroglycerin (Nitrostat) 0.4 mg SL Q5MIN PRN PRN Reason: Chest Pain Discontinue Previous Narcotic Pain Medications And Benzodiazepines 1 each FS .ONE [facility] Stop: 12/23/19 12:35 Ondansetron HCl (Zofran) 4 mg IVP Q6H PRN PRN Reason: Nausea/Vomiting Potassium Chloride (K-Dur) 20 meq PO BID-[facility] Last Admin: 12/01/19 08:33 Dose: 20 meq Saccharomyces Boulardii (Florastor) 250 mg PO DAILY [facility] Last Admin: 12/01/19 08:32 Dose: 250 mg Scopolamine (Transderm Scop) 1.5 mg TD Q3D [facility] Last Admin: 11/29/19 09:50 Dose: 1.5 mg Senna/Docusate Sodium (Senokot S) 2 tab PO BID [facility] Last Admin: 12/01/19 08:34 Dose: Not Given Sodium Chloride (Flush - Normal Saline) 10 ml IVF Q12HR [facility] Last Admin: 12/01/19 08:34 Dose: 10 ml Sodium Chloride (Flush - Normal Saline) 10 ml IVF PRN PRN PRN Reason: Saline Flush Ticagrelor (Brilinta) 90 mg PO BID [facility] Last Admin: 12/01/19 08:33 Dose: 90 mg Vital Signs & Weight: Vital Signs Temp Pulse Resp BP BP Pulse Ox 12/01/19 08:19 97.4 F L 66 16 174/96 H 95 12/01/19 04:00 98.4 F 66 16 141/89 H 98 Admit Weight 213 lb 10.047 oz Weight 208 lb 1.6 oz - Physical Exam General: alert & oriented x3 HEENT: mucus membranes moist Neck: supple neck Cardiac: regular rate and rhythm, S1/S2 Lungs: decreased breath sounds Neuro: cranial nerve 2-12 intact Extremities: no edema - Labs Result Diagrams: 11/30/19 08:20 11/30/19 07:14 Troponin/CKMB Troponin I 1.222 ng/mL (< 0.028) H* 11/23/19 13:25 - Telemetry Sinus rhythms and dysrhythmias: sinus rhythm - Assessment/Plan Assessment/Plan: 1. CAD with hx of CABG in 2017 and s/p HANNA in mid RCA graft on 11/22/2019 - On ASA, Brilinta and Coreg 6.25mg BID 2. sudden cardiac arrest with EF 10% - S/p AICD placement on 11/29/2019; On Amiodarone taper 3. Ischemic CMY - s/p AICD placement on 11/29/2019 4. Acute on Chronic systolic HF - on Lasix 20mg IV BID, which will be change to 40mg PO daily; on Coreg 6.25mg BID; not good candidate for Entresto or Aldactone at this time due to hx of CKD 5. Parox Afib - intermittent SR and AFib with well controlled HR with Amiodarone PO 200mg TID since PM on 11/27/2019 6. HTN - will increase Coreg to 6.25mg BID and stop Norvasc 5mg qd since he had AICD placement and for CHF management 7. LOUANN on CKD stage 3 - not good candidate for Entresto or Aldactone at this time 8. HLD - on Lipitor 9. Elevated temp with possible 2/2 Aspiration PNA? - on ABX IV 10. Sleep Apnea - per the pt, he could sleep well last night with Cpap 11. ETOH abuse - Strongly recommend ETOH cessation MAR reviewed * From Cardiac standpoint, the pt is stable to d/c home. Per the pt, he already has an appt with his Slack Cooper at [facility] in [place].
[2019-12-01 13:26] VITALS: BP 124/84; TEMP 97.5
--- NOTE | 2019-12-01 19:41 | DIS ---
DATE OF ADMISSION: 11/23/2019 DATE OF DISCHARGE: 12/01/2019 PRIMARY CARE PROVIDER: [facility] in [place]. DISCHARGE DIAGNOSES: 1. Cardiac arrest. 2. [id number] myocardial infarction. 3. Ventricular fibrillation, status post cardioversion. 4. Status post stent placement to RCA graft. 5. Status post AICD. 6. Acute hypoxic respiratory failure. 7. Aspiration pneumonitis. 8. [id number] systolic heart failure, [place] Heart Association class III. 9. Iryfx-bn-ejouzoa renal failure stage 3. 10. Hypokalemia. 11. Paroxysmal atrial fibrillation. 12. Physical deconditioning. CONDITION OF THE PATIENT ON THE DAY OF DISCHARGE: Stable. I assessed Mr. Johnson on the day of discharge. He denies any chest pain or shortness of breath. Vital signs are stable. S1 and S2 are heard, regular. Lungs are clear to auscultation bilaterally. CONSULTATIONS DURING THIS HOSPITALIZATION: Pulmonary and Critical Care Medicine, Dr. Nuno, Cardiology, Dr. Varghese, and Electrophysiology, Dr. Castillo. DISCHARGE MEDICATIONS: Atorvastatin 80 mg at bedtime, Flonase 1 spray to each naris daily, loratadine 10 mg daily, Protonix 40 mg daily, nitroglycerin p.r.n., amiodarone 200 mg 3 times a day for 1 week, then two times a day for 2 weeks and then daily, aspirin 81 mg daily, Coreg 6.25 mg 2 times a day, Keflex 500 mg every 6 hours for 4 more days, Lasix 40 mg daily, Florastor 250 mg daily, and Brilinta 90 mg 2 times a day. HOSPITAL COURSE: Mr. Johnson is a pleasant 64-year-old gentleman, who was admitted to [facility] on November 23, 2019 following cardiac arrest. Please refer to Dr. Shrestha's history and physical note dated November 23, 2019 for further details. He was seen by Pulmonary and Critical Care Medicine and Cardiology Services. A 2D echocardiogram showed left ventricular ejection fraction of 10% to 15%, mildly dilated left atrium, mildly increased left ventricular size and impaired relaxation compatible with diastolic dysfunction. He underwent cardiac catheterization, with placement of drug-eluting stent to mid RCA graft on November 22, 2019. He was started on aspirin and Brilinta. He was intubated at the time of admission, subsequently extubated. At the time of his initial presentation, he had ventricular fibrillation prior to cardiac arrest. He was seen by Electrophysiology Service during this hospitalization. He was started on amiodarone. He had ICD placed on November 29, 2019. He was physically deconditioned. He was recommended half-way, but the patient did not wish to go to half-way. He is being discharged home in a stable condition. POST-ACUTE CARE FOLLOWUP: With primary care provider on December 07, 2019 at 1:[address] Varghese in 10 days with Electrophysiology, Dr. Castillo in 10 days. DIET: Heart healthy and low-sodium. ACTIVITY: As tolerated. DISCHARGE DESTINATION: Home. Total amount of time spent coordinating this discharge: 32 minutes. Job ID: [id number]
--- NOTE | 2019-12-02 21:26 | DIS ---
DATE OF ADMISSION: 11/23/2019 DATE OF DISCHARGE: 12/01/2019 DISCHARGE DISPOSITION: Home. FOLLOWUP: 1. Follow up with primary care physician at the [facility] in 1 week. 2. Follow up with Cardiology and Electrophysiology in 2 weeks. 3. Outpatient cardiac rehab has been arranged. 4. Basic metabolic profile after 1 week is recommended. Primary care physician advised to follow. DISCHARGE MEDICATIONS: 1. Aspirin 81 mg daily. 2. Brilinta 90 mg b.i.d. 3. Carvedilol 6.25 mg b.i.d. 4. Amiodarone taper. 5. Keflex 500 mg 4 times a day for 1 week. 6. Lasix 40 mg daily. 7. Potassium chloride 20 mEq daily. 8. All other prescriptions were left unchanged. BRIEF HOSPITAL COURSE: The patient is a 64-year-old male with coronary artery disease status post CABG, presented to [facility] with chest discomfort. At the emergency room, he had a Code Blue with cardiac arrest. He was in ventricular tachycardia followed by ventricular fibrillation. After CPR and cardioversion, the patient converted to sinus rhythm. He was subsequently intubated. He underwent emergent cardiac catheterization that showed a totally occluded right saphenous vein graft that was opened. His echocardiogram showed ejection fraction of 10% to 15% with diastolic dysfunction. The patient was later extubated and was transferred to the telemetry unit. He was also found to have aspiration pneumonitis, requiring empiric antibiotics. AICD was placed this admission after consultation with Dr. Castillo. He has been started on amiodarone. He has been cleared by consultants for discharge. FINAL DIAGNOSES: 1. Chest discomfort followed by cardiac arrest with ventricular fibrillation, requiring cardioversion and CPR. 2. [id number] myocardial infarction, status post emergent cardiac catheterization with stent placement. 3. Jedan-zg-flnraiy systolic/diastolic heart failure exacerbation, improved. 4. Status post automatic implantable cardioverter-defibrillator, this admission. 5. Acute hypoxic respiratory failure, requiring mechanical ventilation. 6. Aspiration pneumonitis. 7. Acute kidney injury on chronic kidney disease, stage 3. 8. Hypokalemia. 9. Paroxysmal atrial fibrillation. 10. Hypertension. 11. Hyperlipidemia. 12. Coronary artery disease, status post coronary artery bypass graft in 2017. 13. Physical deconditioning. Please note, the patient refused home health care or [facility]. Repeat basic metabolic profile after 1 week is recommended. Primary care physician advised to follow. The patient was also advised to get a sleep study as outpatient. Job ID: [id number]
== END 2019-12-01 14:45 | disposition home or self-care (01) | DRG 222 ==
LOC: ERS 08:15 → CCU 09:50 → ERS 09:54 → CCU 09:58 → 2NO 11-27 18:35
PROVIDERS: ADMIT Internal Medicine; ATTEND Internal Medicine
PROC: 4A023N7 Measurement of Cardiac Sampling and Pressure, Left Heart, Percutaneous Approach (ICD-10-PCS; principal; 2019-11-23)
PROC: B211YZZ Fluoroscopy of Multiple Coronary Arteries using Other Contrast (ICD-10-PCS; 2019-11-23)
PROC: B215YZZ Fluoroscopy of Left Heart using Other Contrast (ICD-10-PCS; 2019-11-23)
PROC: 027034Z Dilation of Coronary Artery, One Artery with Drug-eluting Intraluminal Device, Percutaneous Approach (ICD-10-PCS; 2019-11-23)
PROC: 3E03317 Introduction of Other Thrombolytic into Peripheral Vein, Percutaneous Approach (ICD-10-PCS; 2019-11-23)
PROC: 0JH608Z Insertion of Defibrillator Generator into Chest Subcutaneous Tissue and Fascia, Open Approach (ICD-10-PCS; 2019-11-29)
PROC: 02HK3KZ Insertion of Defibrillator Lead into Right Ventricle, Percutaneous Approach (ICD-10-PCS; 2019-11-29)
PROC: 02H63KZ Insertion of Defibrillator Lead into Right Atrium, Percutaneous Approach (ICD-10-PCS; 2019-11-29)
PROC: 4A023FZ Measurement of Cardiac Rhythm, Percutaneous Approach (ICD-10-PCS; 2019-11-29)
PROC: 4A0234Z Measurement of Cardiac Electrical Activity, Percutaneous Approach (ICD-10-PCS; 2019-11-29)
PROC: 5A12012 Performance of Cardiac Output, Single, Manual (ICD-10-PCS; 2019-11-29)
DX: I21.4 Non-ST elevation (NSTEMI) myocardial infarction (principal); I46.2 Cardiac arrest due to underlying cardiac condition; J96.01 Acute respiratory failure with hypoxia; J69.0 Pneumonitis due to inhalation of food and vomit; I49.01 Ventricular fibrillation; I50.43 Acute on chronic combined systolic (congestive) and diastolic (congestive) heart failure; I13.0 Hypertensive heart and chronic kidney disease with heart failure and stage 1 through stage 4 chronic kidney disease, or unspecified chronic kidney disease; N17.9 Acute kidney failure, unspecified; G93.1 Anoxic brain damage, not elsewhere classified; E78.5 Hyperlipidemia, unspecified; G47.33 Obstructive sleep apnea (adult) (pediatric); E66.9 Obesity, unspecified; I95.9 Hypotension, unspecified; K21.9 Gastro-esophageal reflux disease without esophagitis; F10.10 Alcohol abuse, uncomplicated; I25.5 Ischemic cardiomyopathy; N18.3 Chronic kidney disease, stage 3 (moderate); E87.6 Hypokalemia; R53.81 Other malaise; I48.0 Paroxysmal atrial fibrillation; Z79.01 Long term (current) use of anticoagulants; Z95.1 Presence of aortocoronary bypass graft; Z68.26 Body mass index [BMI] 26.0-26.9, adult
CPT/HCPCS: 33249; 36415; 36416; 71045; 76942; 80048; 80053; 80061; 81003; 81015; 82805; 83605; 83735; 83880; 85007; 85027; 85347; 86850; 86900; 86901; 87040; 87070; 87077; 87086; 87186; 87205; 92941; 92977; 93005; 93010; 93306; 93458; 93620; 93641; 93798; 94002; 94003; 94640; 94660; 94760; 96365; 96366; 96368; C1721; C1730; C1777; C1874; C1898; C9606; J0282; J0690; J0696; J1580; J1644; J1940; J2060; J2543; J2704; J2920; J3010; J3246; J3370; J3480; J3490; J7070; J7620; Q9967; S0028

== ENCOUNTER 2021-04-07 11:50 | Outpatient (CLI) | payer MEDICARE ==
[2021-04-07 13:04] LABS: Hemoglobin 15.4 g/dL (13.5-17.5); Mean Corpuscular HGB CONC 33.3 g/dL (32.0-36.0); Mean Corpuscular Hemoglobin 31.9 pg (27.0-33.0); Mean Corpuscular Volume 95.7 fl (81.2-95.1); Mean Platelet Volume 10.5 fl (7.4-10.4); Platelet Count 248 10x3/uL (150-450); RBC Distribution Width 12.9 % (11.5-14.5); Red Blood Cell (RBC) Count 4.83 10x6/uL (4.32-5.72); White Blood Cell (WBC) Count 7.3 10x3/uL (3.5-10.5)
[2021-04-07 13:19] LABS: Anion Gap 17 mmol/L (10-20); BUN (Urea Nitrogen) 13 mg/dL (8.4-25.7); Calc. Creatinine Clearance 0 mL/min (70-130); Calcium 9.3 mg/dL (7.8-10.44); Carbon Dioxide 25 mmol/L (23-31); Chloride 102 mmol/L (98-107); Glucose 91 mg/dL (80-115); Potassium 4.3 mmol/L (3.5-5.1); Sodium 140 mmol/L (136-145)
[2021-04-07 20:28] LABS: SARS-CoV-2 PCR by NAA Not Detected (NotDetected)
== END 2021-04-07 11:51 | disposition home or self-care (01) ==
LOC: LABBT 11:50
PROVIDERS: ATTEND Specialist
DX: Z01.818 Encounter for other preprocedural examination (principal); Z20.822 Contact with and (suspected) exposure to COVID-19
CPT/HCPCS: 80048; 85027; U0003; U0005; 93005; 93010

== ENCOUNTER 2022-12-13 01:13 | Inpatient (IN) | payer MEDICARE ==
[2022-12-13 01:42] VITALS: BMI 27.0
[2022-12-13] MEDS ORDERED: Ondansetron PF 4 MG/2 ML Vial IVP PRN (02:19)
[2022-12-13] MEDS ORDERED: HYDROcodone/Acetaminophen 5/325 mg Tablet PO PRN (02:19)
[2022-12-13] MEDS ORDERED: Ondansetron ODT 4 MG TAB PO PRN (02:19)
[2022-12-13] MEDS ORDERED: Albuterol 200 PUFF (6.7GM INHALER) INH PRN (02:19)
[2022-12-13] MEDS ORDERED: Acetaminophen 325 MG TAB PO PRN (02:19)
[2022-12-13] MEDS ORDERED: Dexamethasone 4 mg/ml Vial SLOW IVP SCH (02:45)
[2022-12-13] MEDS: Benzonatate 100 MG CAP PO PRN ×2 (03:17→08:49)
[2022-12-13 04:56] LABS: #Monocytes 1.3 thou/uL (0.11-0.59); #Neutrophils 5.4 thou/uL (1.40-6.50); %Basophils 0.2 % (0.0-1.0); %Eosinophils 0.1 % (0.0-10.0); %Lymphocytes 26.7 % (21.0-51.0); %Monocytes 14.3 % (0.0-10.0); %Neutrophils 58.5 % (42.0-75.0); Hemoglobin 13.3 g/dL (14.0-18.0); Mean Corpuscular HGB CONC 32.8 g/dL (32.0-36.0); Mean Corpuscular Hemoglobin 31.4 pg (27.0-31.0); Mean Corpuscular Volume 95.8 fl (78.0-98.0); Mean Platelet Volume 11.1 fL (7.4-10.4); Platelet Count 236 10x3/uL (130-400); Red Blood Cell (RBC) Count 4.24 mill/uL (4.70-6.10); White Blood Cell (WBC) Count 9.3 10x3/uL (4.8-10.8)
[2022-12-13 05:08] LABS: Anion Gap 13 mmol/L (10-20); BUN (Urea Nitrogen) 13 mg/dL (8.4-25.7); Calc. Creatinine Clearance 51 mL/min (70-130); Carbon Dioxide 25 mmol/L (23-31); Chloride 103 mmol/L (98-107); Estimated GFR 42; Glucose 95 mg/dL (80-115); Magnesium 2.1 mg/dL (1.6-2.6); Sodium 137 mmol/L (136-145)
[2022-12-13 05:14] LABS: Troponin I 0.055 ng/mL (< 0.028)
[2022-12-13] MEDS: Furosemide 40 MG/4 ML VIAL SLOW IVP SCH ×2 (05:49→13:39)
[2022-12-13] MEDS: Dexamethasone 4 MG TAB PO SCH (08:48)
[2022-12-13] MEDS: Cholecalciferol (Vitamin D3) 400 UNITS TAB PO SCH (08:49)
[2022-12-13] MEDS ORDERED: Heparin 5,000 UNITS/ML VIAL SC SCH (09:00)
[2022-12-13] MEDS ORDERED: Famotidine 20 MG TAB PO SCH (09:00)
[2022-12-13] MEDS ORDERED: REMDESIVIR 200 MG in Sodium Chloride 0.9% 250 ML 210 ML IV SCH (09:00)
[2022-12-13] MEDS ORDERED: guaiFENesin/Codeine 200 mg/20 mg 10 ml Cup PO PRN (12:09)
[2022-12-13] MEDS: cefTRIAXone\\ROCEPHIN 1 GM in Sodium Chloride 0.9% 100 ML IVPB SCH (13:39)
[2022-12-13] MEDS: Carvedilol 6.25 MG TAB PO SCH (17:08)
[2022-12-13] MEDS: Benzonatate 100 MG CAP PO SCH (17:08)
[2022-12-13] MEDS: Rivaroxaban 10 MG TAB PO SCH (17:08)
[2022-12-13] MEDS: Atorvastatin Calcium 40 MG TAB PO SCH (20:21)
[2022-12-13] MEDS ORDERED: Furosemide 40 MG TAB PO SCH (21:00)
[2022-12-14] MEDS: Benzonatate 100 MG CAP PO SCH ×4 (00:45→18:24)
[2022-12-14 05:20] LABS: ALT (SGPT) 15 U/L (8-55); AST (SGOT) 27 U/L (5-34); Albumin 3.5 g/dL (3.4-4.8); Alkaline Phosphatase 187 U/L (40-110); Anion Gap 15 mmol/L (10-20); BUN (Urea Nitrogen) 21 mg/dL (8.4-25.7); Bilirubin, Direct 0.1 mg/dL (0.1-0.3); Bilirubin, Total 0.2 mg/dL (0.2-1.2); Calc. Creatinine Clearance 51 mL/min (70-130); Calcium 9.5 mg/dL (7.8-10.44); Carbon Dioxide 23 mmol/L (23-31); Chloride 101 mmol/L (98-107); Estimated GFR 43; Glucose 101 mg/dL (80-115); Potassium 4.3 mmol/L (3.5-5.1); Protein, Total 7.7 g/dL (5.8-8.1); Sodium 135 mmol/L (136-145)
[2022-12-14] MEDS: Furosemide 40 MG/4 ML VIAL SLOW IVP SCH ×2 (06:25→13:31)
[2022-12-14] MEDS: REMDESIVIR 100 MG in Sodium Chloride 0.9% 250 ML 230 ML IV SCH (09:11)
[2022-12-14] MEDS: Clopidogrel Bisulfate 75 MG TAB PO SCH (09:12)
[2022-12-14] MEDS: Escitalopram Oxalate 10 mg Tablet PO SCH (09:12)
[2022-12-14] MEDS: Allopurinol 100 MG TAB PO SCH (09:12)
[2022-12-14] MEDS: Carvedilol 6.25 MG TAB PO SCH ×2 (09:12→18:24)
[2022-12-14] MEDS: Loratadine 10 MG TAB PO SCH (09:12)
[2022-12-14] MEDS: Cholecalciferol (Vitamin D3) 400 UNITS TAB PO SCH (09:12)
[2022-12-14] MEDS: Dexamethasone 4 MG TAB PO SCH (09:12)
[2022-12-14] MEDS: Aspirin 81 mg Enteric Coated Tablet PO SCH (09:12)
[2022-12-14] MEDS: cefTRIAXone\\ROCEPHIN 1 GM in Sodium Chloride 0.9% 100 ML IVPB SCH (13:30)
[2022-12-14] MEDS: Rivaroxaban 10 MG TAB PO SCH (18:24)
[2022-12-14] MEDS: Atorvastatin Calcium 40 MG TAB PO SCH (21:30)
[2022-12-15] MEDS: Benzonatate 100 MG CAP PO SCH ×2 (00:59→05:58)
[2022-12-15] MEDS: Furosemide 40 MG/4 ML VIAL SLOW IVP SCH (05:58)
[2022-12-15] MEDS: cefTRIAXone\\ROCEPHIN 1 GM in Sodium Chloride 0.9% 100 ML IVPB SCH (08:50)
[2022-12-15] MEDS: Cholecalciferol (Vitamin D3) 400 UNITS TAB PO SCH (08:50)
[2022-12-15] MEDS: Loratadine 10 MG TAB PO SCH (08:50)
[2022-12-15] MEDS: Dexamethasone 4 MG TAB PO SCH (08:50)
[2022-12-15] MEDS: Allopurinol 100 MG TAB PO SCH (08:51)
[2022-12-15] MEDS: Escitalopram Oxalate 10 mg Tablet PO SCH (08:51)
[2022-12-15] MEDS: Carvedilol 6.25 MG TAB PO SCH (08:51)
[2022-12-15] MEDS: Clopidogrel Bisulfate 75 MG TAB PO SCH (08:51)
[2022-12-15] MEDS: Aspirin 81 mg Enteric Coated Tablet PO SCH (08:51)
[2022-12-15] MEDS: REMDESIVIR 100 MG in Sodium Chloride 0.9% 250 ML 230 ML IV SCH (08:51)
[2022-12-15 11:45] VITALS: TEMP 97.7
[2022-12-15 12:14] VITALS: BP 120/73
== END 2022-12-15 13:41 | disposition home or self-care (01) | DRG 177 ==
LOC: 2NO 01:13 → OBSVTOIN 12:06
PROVIDERS: ADMIT Internal Medicine; ATTEND Hospitalist
PROC: XW033E5 Introduction of Remdesivir Anti-infective into Peripheral Vein, Percutaneous Approach, New Technology Group 5 (ICD-10-PCS; principal; 2022-12-13)
PROC: 3E0333Z Introduction of Anti-inflammatory into Peripheral Vein, Percutaneous Approach (ICD-10-PCS; 2022-12-13)
PROC: 8E0ZXY6 Isolation (ICD-10-PCS; 2022-12-13)
DX: U07.1 COVID-19 (principal); I50.23 Acute on chronic systolic (congestive) heart failure; J12.82 Pneumonia due to coronavirus disease 2019; J96.01 Acute respiratory failure with hypoxia; I13.0 Hypertensive heart and chronic kidney disease with heart failure and stage 1 through stage 4 chronic kidney disease, or unspecified chronic kidney disease; N17.9 Acute kidney failure, unspecified; N18.9 Chronic kidney disease, unspecified; G47.33 Obstructive sleep apnea (adult) (pediatric); I25.5 Ischemic cardiomyopathy; E78.5 Hyperlipidemia, unspecified; K21.9 Gastro-esophageal reflux disease without esophagitis; I71.40 Abdominal aortic aneurysm, without rupture, unspecified; I25.10 Atherosclerotic heart disease of native coronary artery without angina pectoris; Z79.899 Other long term (current) drug therapy; Z79.82 Long term (current) use of aspirin; Z95.810 Presence of automatic (implantable) cardiac defibrillator; Z86.711 Personal history of pulmonary embolism; Z79.01 Long term (current) use of anticoagulants; I25.2 Old myocardial infarction; Z95.1 Presence of aortocoronary bypass graft; Z91.148 Patient's other noncompliance with medication regimen for other reason
CPT/HCPCS: 36415; 80048; 80076; 83735; 84145; 84484; 85025; 86140; 87070; 87205; 96372; 96374; 96375; G0378; J0248; J0696; J1100; J1644; J1940; J3490; J7050; J8540

== ENCOUNTER 2023-05-06 02:03 | Inpatient (IN) | payer MEDICARE ==
[2023-05-06 03:54] VITALS: BMI 27.6
[2023-05-06] MEDS ORDERED: Ondansetron PF 4 MG/2 ML Vial IVP PRN (04:28)
[2023-05-06 04:53] LABS: Troponin I 0.049 ng/mL (< 0.028)
[2023-05-06] MEDS: Benzonatate 100 MG CAP PO PRN ×4 (05:23→20:22)
[2023-05-06] MEDS: Furosemide 40 MG/4 ML VIAL SLOW IVP SCH ×2 (05:23→14:17)
[2023-05-06] MEDS ORDERED: Ipratropium/Albuterol 3 ML NEB NEB SCH (05:30)
[2023-05-06] MEDS ORDERED: FLU VACC QS2023(65UP)/MF59C/PF 60 MCG/0.5 ML SYRINGE IM ONE (09:00)
[2023-05-06] MEDS: Sacubitril 24MG/Valsartan 26 MG TAB PO SCH (10:24)
[2023-05-06] MEDS: guaiFENesin ER 600 MG TAB PO SCH ×2 (10:24→19:28)
[2023-05-06] MEDS: Escitalopram Oxalate 20 mg Tablet PO SCH (10:24)
[2023-05-06] MEDS: Clopidogrel Bisulfate 75 MG TAB PO SCH (10:24)
[2023-05-06] MEDS: Carvedilol 3.125 MG TAB PO SCH (10:24)
[2023-05-06] MEDS: Cyanocobalamin (Vitamin B-12) 1,000 MCG TAB PO SCH (10:25)
[2023-05-06] MEDS: Empagliflozin 25 MG TAB PO SCH (10:25)
[2023-05-06] MEDS: Benzocaine/Menthol 1 LOZ LOZ PO PRN ×4 (10:26→19:29)
[2023-05-06] MEDS: Rivaroxaban 10 MG TAB PO SCH (17:21)
[2023-05-06] MEDS: Atorvastatin Calcium 40 MG TAB PO SCH (19:29)
[2023-05-06] MEDS ORDERED: Furosemide 20 MG/2 ML VIAL SLOW IVP SCH (20:15)
[2023-05-06] MEDS: Guaifenesin DM 100-10/5 ML UDCUP PO PRN (22:53)
[2023-05-07] MEDS: Benzocaine/Menthol 1 LOZ LOZ PO PRN ×3 (00:04→08:57)
[2023-05-07] MEDS: Benzonatate 100 MG CAP PO PRN ×4 (00:04→17:15)
[2023-05-07 04:47] LABS: #Neutrophils 7.7 thou/uL (1.40-6.50); %Basophils 0.2 % (0.0-1.0); %Eosinophils 0.1 % (0.0-10.0); %Lymphocytes 17.8 % (21.0-51.0); %Monocytes 9.1 % (0.0-10.0); %Neutrophils 72.4 % (42.0-75.0); Hematocrit 35.6 % (42.0-52.0); Hemoglobin 11.5 g/dL (14.0-18.0); Mean Corpuscular HGB CONC 32.3 g/dL (32.0-36.0); Mean Corpuscular Hemoglobin 28.7 pg (27.0-31.0); Mean Corpuscular Volume 88.8 fl (78.0-98.0); Mean Platelet Volume 11.4 fL (7.4-10.4); Platelet Count 196 10x3/uL (130-400); RBC Distribution Width 15.2 % (11.5-14.5); Red Blood Cell (RBC) Count 4.01 mill/uL (4.70-6.10); White Blood Cell (WBC) Count 10.6 10x3/uL (4.8-10.8)
[2023-05-07 05:23] LABS: ALT (SGPT) 9 U/L (8-55); AST (SGOT) 22 U/L (5-34); Albumin 3.8 g/dL (3.4-4.8); Alkaline Phosphatase 145 U/L (40-110); Anion Gap 13 mmol/L (10-20); BUN (Urea Nitrogen) 27 mg/dL (8.4-25.7); Bilirubin, Total 1.3 mg/dL (0.2-1.2); Calc. Creatinine Clearance 41 mL/min (70-130); Calcium 9.5 mg/dL (7.8-10.44); Carbon Dioxide 32 mmol/L (23-31); Chloride 98 mmol/L (98-107); Estimated GFR 33; Globulin 3.7 g/dL (2.4-3.5); Glucose 108 mg/dL (80-115); Potassium 3.9 mmol/L (3.5-5.1); Protein, Total 7.5 g/dL (5.8-8.1); Sodium 139 mmol/L (136-145)
[2023-05-07] MEDS: Guaifenesin DM 100-10/5 ML UDCUP PO PRN ×2 (06:19→19:46)
[2023-05-07] MEDS: guaiFENesin ER 600 MG TAB PO SCH (08:57)
[2023-05-07] MEDS: Cyanocobalamin (Vitamin B-12) 1,000 MCG TAB PO SCH (08:57)
[2023-05-07] MEDS: Clopidogrel Bisulfate 75 MG TAB PO SCH (08:57)
[2023-05-07] MEDS: Escitalopram Oxalate 20 mg Tablet PO SCH (08:57)
[2023-05-07] MEDS: Furosemide 40 MG TAB PO SCH (09:10)
[2023-05-07] MEDS: Carvedilol 3.125 MG TAB PO SCH ×2 (09:10→17:12)
[2023-05-07] MEDS ORDERED: Ipratropium/Albuterol 3 ML NEB NEB SCH (09:15)
[2023-05-07] MEDS: Rivaroxaban 10 MG TAB PO SCH (17:12)
[2023-05-07] MEDS: Atorvastatin Calcium 40 MG TAB PO SCH (19:47)
[2023-05-08] MEDS: Guaifenesin DM 100-10/5 ML UDCUP PO PRN ×2 (03:12→09:31)
[2023-05-08 04:21] LABS: #Eosinphils 0.1 thou/uL (0.0-0.7); #Neutrophils 3.3 thou/uL (1.40-6.50); %Basophils 0.2 % (0.0-1.0); %Eosinophils 0.9 % (0.0-10.0); %Lymphocytes 25.8 % (21.0-51.0); %Monocytes 17.1 % (0.0-10.0); %Neutrophils 55.8 % (42.0-75.0); Hematocrit 34.2 % (42.0-52.0); Hemoglobin 11.3 g/dL (14.0-18.0); Mean Corpuscular Hemoglobin 28.6 pg (27.0-31.0); Mean Corpuscular Volume 86.6 fl (78.0-98.0); Mean Platelet Volume 11.1 fL (7.4-10.4); Platelet Count 173 10x3/uL (130-400); Red Blood Cell (RBC) Count 3.95 mill/uL (4.70-6.10); White Blood Cell (WBC) Count 5.9 10x3/uL (4.8-10.8)
[2023-05-08 04:53] LABS: ALT (SGPT) 9 U/L (8-55); AST (SGOT) 21 U/L (5-34); Albumin 3.6 g/dL (3.4-4.8); Alkaline Phosphatase 136 U/L (40-110); Anion Gap 12 mmol/L (10-20); BUN (Urea Nitrogen) 23 mg/dL (8.4-25.7); Calc. Creatinine Clearance 50 mL/min (70-130); Calcium 9.3 mg/dL (7.8-10.44); Carbon Dioxide 30 mmol/L (23-31); Chloride 98 mmol/L (98-107); Estimated GFR 41; Globulin 3.4 g/dL (2.4-3.5); Glucose 101 mg/dL (80-115); Potassium 3.6 mmol/L (3.5-5.1); Sodium 136 mmol/L (136-145)
[2023-05-08] MEDS: Escitalopram Oxalate 20 mg Tablet PO SCH (09:28)
[2023-05-08] MEDS: Carvedilol 3.125 MG TAB PO SCH (09:29)
[2023-05-08] MEDS: Sacubitril 24MG/Valsartan 26 MG TAB PO SCH (09:29)
[2023-05-08] MEDS: Furosemide 40 MG TAB PO SCH (09:29)
[2023-05-08] MEDS: Empagliflozin 25 MG TAB PO SCH (09:30)
[2023-05-08] MEDS: Clopidogrel Bisulfate 75 MG TAB PO SCH (09:30)
[2023-05-08] MEDS: Cyanocobalamin (Vitamin B-12) 1,000 MCG TAB PO SCH (09:31)
[2023-05-08] MEDS: Benzocaine/Menthol 1 LOZ LOZ PO PRN (09:34)
[2023-05-08 11:42] VITALS: BP 103/67; TEMP 97.6
[2023-05-09] MEDS ORDERED: Allopurinol 100 MG TAB PO SCH (09:00)
== END 2023-05-08 15:53 | disposition home or self-care (01) | DRG 291 ==
LOC: 2SE 03:37 → OBSVTOIN 04:28
PROVIDERS: ADMIT Student in an Organized Health Care Education/Training Program; ATTEND Student in an Organized Health Care Education/Training Program
DX: I13.0 Hypertensive heart and chronic kidney disease with heart failure and stage 1 through stage 4 chronic kidney disease, or unspecified chronic kidney disease (principal); I50.23 Acute on chronic systolic (congestive) heart failure; N18.30 Chronic kidney disease, stage 3 unspecified; I25.5 Ischemic cardiomyopathy; Z95.1 Presence of aortocoronary bypass graft; I25.2 Old myocardial infarction; D63.1 Anemia in chronic kidney disease; Z86.711 Personal history of pulmonary embolism; K21.9 Gastro-esophageal reflux disease without esophagitis; E78.5 Hyperlipidemia, unspecified; G47.30 Sleep apnea, unspecified; Z79.899 Other long term (current) drug therapy; I25.10 Atherosclerotic heart disease of native coronary artery without angina pectoris; Z95.810 Presence of automatic (implantable) cardiac defibrillator
CPT/HCPCS: 36415; 80053; 83735; 85025; 93306; 94640; J1940; J7620

== ENCOUNTER 2023-09-27 18:31 | Inpatient (IN) | payer MEDICARE ==
[2023-09-27 19:33] LABS: #Basophils Less than 0.03 10x3/uL (0.0-0.2); #Eosinphils Less than 0.03 10x3/uL (0.0-0.7); %Basophils 0.2 % (0.0-1.0); %Eosinophils 0.1 % (0.0-10.0); %Lymphocytes 7.6 % (21.0-51.0); %Monocytes 8.8 % (0.0-10.0); %Neutrophils 82.9 % (42.0-75.0); Hematocrit 35.8 % (42.0-52.0); Mean Corpuscular HGB CONC 33.5 g/dL (32.0-36.0); Mean Corpuscular Hemoglobin 29.5 pg (27.0-31.0); Mean Platelet Volume 10.8 fL (7.4-10.4); Platelet Count 157 10x3/uL (130-400); RBC Distribution Width 19.2 % (11.5-14.5); Red Blood Cell (RBC) Count 4.07 mill/uL (4.70-6.10)
[2023-09-27 20:15] LABS: Troponin I 0.033 ng/mL (< 0.028)
[2023-09-27 20:26] LABS: ALT (SGPT) 17 U/L (8-55); AST (SGOT) 24 U/L (5-34); Alkaline Phosphatase 184 U/L (40-110); Anion Gap 15 mmol/L (10-20); BUN (Urea Nitrogen) 29 mg/dL (8.4-25.7); Bilirubin, Total 3.2 mg/dL (0.2-1.2); Calc. Creatinine Clearance 0 mL/min (70-130); Carbon Dioxide 24 mmol/L (23-31); Chloride 99 mmol/L (98-107); Estimated GFR 36; Glucose 98 mg/dL (80-115); Magnesium 1.8 mg/dL (1.6-2.6); Potassium 3.8 mmol/L (3.5-5.1); Protein, Total 6.7 g/dL (5.8-8.1); Sodium 134 mmol/L (136-145)
[2023-09-27 20:56] LABS: Influenza A by NAA Not Detected (NotDetected); Influenza B by NAA Not Detected (NotDetected); SARS-CoV-2 NAA Rapid Test Not Detected (NotDetected)
[2023-09-27] MEDS ORDERED: Furosemide 40 MG (4 mL) VIAL ONE (21:15)
[2023-09-27 21:37] LABS: Albumin 3.1 g/dL (3.4-4.8)
[2023-09-27 21:38] LABS: Globulin 3.6 g/dL (2.4-3.5)
[2023-09-27 23:11] LABS: Base Excess 0.6 mEq/L (-2.0 to +3.0); Calcium, Ionized (venous) 1.13 mmol/L (1.16-1.32); Chloride (VBG) 98 mmol/L (98-106); Hematocrit-VBG 38 % (42.0-52.0); Hemoglobin (Hb) 12.8 g/dL (12.6-17.4); Potassium (VBG) 3.93 mmol/L (3.70-5.30); Sodium 135 mmol/L (133-146)
[2023-09-28] MEDS ORDERED: Morphine 4 MG/ML VIAL ONE (00:10)
[2023-09-28] MEDS ORDERED: Ondansetron PF 4 MG/2 ML Vial ONE (00:12)
[2023-09-28 01:39] LABS: Hemoglobin A1c 5.5 % (4.0-6.0)
[2023-09-28 01:41] LABS: Cardiac Risk 2.9 (Less than 4.5)
[2023-09-28] MEDS ORDERED: Furosemide 40 MG (4 mL) VIAL ONE ×2 (06:07→14:49)
[2023-09-28] MEDS: Furosemide 40 MG (4 mL) VIAL SLOW IVP SCH (06:30)
[2023-09-28 06:32] LABS: #Basophils Less than 0.03 10x3/uL (0.0-0.2); #Eosinphils Less than 0.03 10x3/uL (0.0-0.7); %Basophils 0.1 % (0.0-1.0); %Eosinophils 0.1 % (0.0-10.0); %Lymphocytes 7.2 % (21.0-51.0); %Monocytes 8.4 % (0.0-10.0); %Neutrophils 83.6 % (42.0-75.0); Hematocrit 35.1 % (42.0-52.0); Hemoglobin 11.9 g/dL (14.0-18.0); Mean Corpuscular HGB CONC 33.9 g/dL (32.0-36.0); Mean Corpuscular Hemoglobin 29.8 pg (27.0-31.0); Mean Platelet Volume 11.1 fL (7.4-10.4); Platelet Count 149 10x3/uL (130-400); RBC Distribution Width 19.5 % (11.5-14.5); Red Blood Cell (RBC) Count 3.99 mill/uL (4.70-6.10)
[2023-09-28 06:47] LABS: Globulin 3.6 g/dL (2.4-3.5)
[2023-09-28 06:51] LABS: ALT (SGPT) 16 U/L (8-55); AST (SGOT) 21 U/L (5-34); Albumin 3.1 g/dL (3.4-4.8); Alkaline Phosphatase 180 U/L (40-110); Anion Gap 20 mmol/L (10-20); BUN (Urea Nitrogen) 31 mg/dL (8.4-25.7); Bilirubin, Total 3.3 mg/dL (0.2-1.2); Calc. Creatinine Clearance 50 mL/min (70-130); Calcium 9.2 mg/dL (7.8-10.44); Carbon Dioxide 21 mmol/L (23-31); Chloride 99 mmol/L (98-107); Estimated GFR 36; Glucose 85 mg/dL (80-115); Potassium 3.9 mmol/L (3.5-5.1); Protein, Total 6.7 g/dL (5.8-8.1); Sodium 136 mmol/L (136-145)
[2023-09-28 08:56] LABS: Actual Bicarbonate (HCO3v) 24.4 mEq/L (22-28); Base Excess -0.5 mEq/L (-2.0 to +3.0); Chloride (VBG) 97 mmol/L (98-106); Hematocrit-VBG 40 % (42.0-52.0); Hemoglobin (Hb) 13.6 g/dL (12.6-17.4); Potassium (VBG) 4.13 mmol/L (3.70-5.30); Sodium 136 mmol/L (133-146); pH (venous) 7.391 (7.32-7.43)
[2023-09-28 09:24] LABS: #Basophils Less than 0.03 10x3/uL (0.0-0.2); #Eosinphils Less than 0.03 10x3/uL (0.0-0.7); %Basophils 0.1 % (0.0-1.0); %Lymphocytes 6.9 % (21.0-51.0); %Monocytes 6.9 % (0.0-10.0); %Neutrophils 85.3 % (42.0-75.0); Hematocrit 37.5 % (42.0-52.0); Hemoglobin 12.7 g/dL (14.0-18.0); Mean Corpuscular HGB CONC 33.9 g/dL (32.0-36.0); Mean Corpuscular Hemoglobin 29.8 pg (27.0-31.0); Mean Platelet Volume 11.5 fL (7.4-10.4); Platelet Count 164 10x3/uL (130-400); RBC Distribution Width 19.5 % (11.5-14.5); Red Blood Cell (RBC) Count 4.26 mill/uL (4.70-6.10)
[2023-09-28 09:55] LABS: ALT (SGPT) 17 U/L (8-55); AST (SGOT) 21 U/L (5-34); Albumin 3.2 g/dL (3.4-4.8); Alkaline Phosphatase 197 U/L (40-110); Anion Gap 20 mmol/L (10-20); BUN (Urea Nitrogen) 32 mg/dL (8.4-25.7); Calc. Creatinine Clearance 48 mL/min (70-130); Carbon Dioxide 21 mmol/L (23-31); Chloride 98 mmol/L (98-107); Estimated GFR 35; Glucose 87 mg/dL (80-115); Protein, Total 7.2 g/dL (5.8-8.1); Sodium 135 mmol/L (136-145)
[2023-09-28] MEDS ORDERED: Lactulose 20 GM (30 mL) UDCUP PR SCH (10:00)
[2023-09-28] MEDS ORDERED: Lactulose 20 GM (30 mL) UDCUP ONE (10:14)
[2023-09-28] MEDS ORDERED: Sacubitril 49 MG/Valsartan 51 MG TABLET ONE (10:14)
[2023-09-28 10:15] LABS: Bilirubin Negative (Negative); Blood, Urine Negative (Negative); Clarity Clear (Clear); Glucose, Urine (Dipstick) Normal (Negative); Ketone, Urine Negative (Negative); Leukocyte 250 Leu/uL (Negative); Nitrite Negative (Negative); Protein, Urine (Dipstick) 10 mg/dL (Neg-Trace); Specific Gravity, Urine 1.024 (1.002-1.036); Urobilinogen Normal mg/dL (Less than 2)
[2023-09-28 10:16] LABS: Bacteria/HPF 1+ HPF (None Seen); CAUTI Indications for Culture Alt mental st,lethar; RBC/HPF None Seen HPF (0-3); Squamous Epithelial None Seen HPF (0-3); WBC/HPF 21-50 HPF (0-3)
[2023-09-28] MEDS ORDERED: Enoxaparin 40 MG (0.4 mL) SYRINGE ONE (10:16)
[2023-09-28 10:17] LABS: Urine Culture Reflex Yes Yes
[2023-09-28] MEDS: Enoxaparin 40 MG (0.4 mL) SYRINGE SC SCH (10:17)
[2023-09-28 10:20] LABS: Amphetamine Not Detected (NotDetected); Barbiturates Screen Not Detected (NotDetected); Benzodiazepine Screen Not Detected (NotDetected); Cocaine Metabolite Screen Detected (NotDetected); Methadone Not Detected (NotDetected); Methamphetamine Not Detected (NotDetected); Opiate Screen Detected (NotDetected); Oxycodone Screen Not Detected (NotDetected); Phencyclidine (PCP) Not Detected (NotDetected); THC/Cannabinoid Screen Not Detected (NotDetected); Tricyclic Screen Not Detected (NotDetected)
[2023-09-28] MEDS: Sacubitril 49 MG/Valsartan 51 MG TABLET PO SCH (10:20)
[2023-09-28] MEDS: Empagliflozin 25 MG TAB PO SCH (10:20)
[2023-09-28] MEDS: Lactulose 20 GM (30 mL) UDCUP PO SCH (10:26)
[2023-09-28 10:39] LABS: INR-International Normal Ratio 1.3; PTT 34.1 sec (22.9-36.1); Prothrombin Time 15.8 sec (12.0-14.7)
[2023-09-28 11:02] LABS: Acetaminophen Less than 10 mcg/mL (10.0-30.0); Alcohol Less than 10.0 mg/dL (Less than 10); Iron 14 ug/dL (65-175); Salicylate Less than 8.0 mg/dL (15.0-30.0)
[2023-09-28 11:28] LABS: HBCM Index 0.07 S/CO (0-0.79); HBsAg Index 0.29 S/CO (0-0.99); HIV (1/2) Antibody/Antigen NONREACTIVE (NonReactive); HIV 1/2 INDEX 0.09 S/CO (<1.00); Hep A IgM AB NONREACTIVE (NonReactive); Hep A IgM S/CO 0.18 S/CO (0-0.79); Hep B Surf Ag NONREACTIVE S/CO (NonReactive); Hep C IgG Ab NONREACTIVE S/CO (NonReactive); Hep C Index 0.16 S/CO (0-0.79); Hepatitis B Core IgM Abs NONREACTIVE S/CO (NonReactive)
[2023-09-28 11:59] LABS: Bilirubin, Total 3.4 mg/dL (0.2-1.2); Calcium 9.8 mg/dL (7.8-10.44)
[2023-09-28 13:29] LABS: Syphilis Antibody Nonreactive (Nonreactive); Syphilis Antibody Index 0.06 S/CO (<1.00 Non-Reactive)
[2023-09-28] MEDS ORDERED: cefTRIAXone (ROCEPHIN) 1 GM VIAL ONE (14:49)
[2023-09-28] MEDS: cefTRIAXone\\ROCEPHIN 1 GM in Sodium Chloride 0.9% 100 ML IVPB SCH (14:51)
[2023-09-28 18:07] VITALS: BMI 28.3
[2023-09-28] MEDS ORDERED: Carvedilol 6.25 MG TAB PO SCH (21:00)
[2023-09-28] MEDS: Atorvastatin Calcium 40 MG TAB PO SCH (21:03)
[2023-09-28 21:34] LABS: Iron 12 ug/dL (65-175); Iron Binding Capacity, Total 289 mcg/dL (261-462); Transferrin, Serum 231 mg/dL (163-344)
[2023-09-29 05:09] LABS: #Basophils Less than 0.03 10x3/uL (0.0-0.2); %Basophils 0.2 % (0.0-1.0); %Eosinophils 0.2 % (0.0-10.0); %Lymphocytes 9.9 % (21.0-51.0); %Monocytes 8.4 % (0.0-10.0); %Neutrophils 80.8 % (42.0-75.0); Hematocrit 33.8 % (42.0-52.0); Hemoglobin 11.6 g/dL (14.0-18.0); Mean Corpuscular HGB CONC 34.3 g/dL (32.0-36.0); Mean Corpuscular Hemoglobin 29.1 pg (27.0-31.0); Mean Corpuscular Volume 84.9 fL (78.0-98.0); Mean Platelet Volume 11.7 fL (7.4-10.4); Platelet Count 159 10x3/uL (130-400); RBC Distribution Width 19.4 % (11.5-14.5); Red Blood Cell (RBC) Count 3.98 mill/uL (4.70-6.10)
[2023-09-29 05:18] LABS: Globulin 3.5 g/dL (2.4-3.5)
[2023-09-29 05:22] LABS: ALT (SGPT) 14 U/L (8-55); AST (SGOT) 17 U/L (5-34); Albumin 2.7 g/dL (3.4-4.8); Alkaline Phosphatase 167 U/L (40-110); Anion Gap 14 mmol/L (10-20); BUN (Urea Nitrogen) 36 mg/dL (8.4-25.7); Calc. Creatinine Clearance 43 mL/min (70-130); Calcium 8.9 mg/dL (7.8-10.44); Carbon Dioxide 25 mmol/L (23-31); Chloride 100 mmol/L (98-107); Estimated GFR 33; Glucose 99 mg/dL (80-115); Potassium 3.7 mmol/L (3.5-5.1); Protein, Total 6.2 g/dL (5.8-8.1); Sodium 135 mmol/L (136-145)
[2023-09-29] MEDS: Acetaminophen 325 MG TAB PO PRN (05:38)
[2023-09-29] MEDS: Albuterol 200 PUFF (6.7GM INHALER) INH SCH (07:32)
[2023-09-29] MEDS: Allopurinol 100 MG TAB PO SCH (08:30)
[2023-09-29] MEDS: Clopidogrel Bisulfate 75 MG TAB PO SCH (08:30)
[2023-09-29] MEDS: Pantoprazole DR 40 MG TAB PO SCH (08:30)
[2023-09-29] MEDS ORDERED: Lactulose 20 GM (30 mL) UDCUP PO SCH (09:00)
[2023-09-29] MEDS: Spironolactone 25 MG TAB PO SCH (09:28)
[2023-09-29] MEDS: Albumin 25% 25 GM (100 mL) BOT IVPB SCH ×2 (09:57→18:01)
[2023-09-29] MEDS: Sodium Ferric Gluconate 250 MG in Sodium Chloride 0.9% 250 ML 250 ML IVPB SCH (10:43)
[2023-09-29 12:19] LABS: Sodium, Urine Less than 20 mmol/L (Not Available); Urea Nitrogen, Random Urine Greater than 100 mg/dl
[2023-09-29 12:20] LABS: Microalbumin Urine 2.2 mg/dL (0.5-50.0)
[2023-09-30 03:55] LABS: #Basophils Less than 0.03 10x3/uL (0.0-0.2); %Eosinophils 1.1 % (0.0-10.0); %Monocytes 10.3 % (0.0-10.0); %Neutrophils 76.1 % (42.0-75.0); Hematocrit 31.4 % (42.0-52.0); Hemoglobin 10.8 g/dL (14.0-18.0); Mean Corpuscular HGB CONC 34.4 g/dL (32.0-36.0); Mean Corpuscular Hemoglobin 29.8 pg (27.0-31.0); Mean Corpuscular Volume 86.5 fL (78.0-98.0); Mean Platelet Volume 10.2 fL (7.4-10.4); Platelet Count 149 10x3/uL (130-400); RBC Distribution Width 19.3 % (11.5-14.5); Red Blood Cell (RBC) Count 3.63 mill/uL (4.70-6.10)
[2023-09-30 04:27] LABS: ALT (SGPT) 19 U/L (8-55); AST (SGOT) 38 U/L (5-34); Alkaline Phosphatase 189 U/L (40-110); Anion Gap 12 mmol/L (10-20); BUN (Urea Nitrogen) 34 mg/dL (8.4-25.7); Bilirubin, Total 1.3 mg/dL (0.2-1.2); Calc. Creatinine Clearance 47 mL/min (70-130); Carbon Dioxide 28 mmol/L (23-31); Chloride 101 mmol/L (98-107); Estimated GFR 37; Globulin 3.1 g/dL (2.4-3.5); Glucose 99 mg/dL (80-115); Magnesium 1.9 mg/dL (1.6-2.6); Potassium 3.6 mmol/L (3.5-5.1); Protein, Total 6.1 g/dL (5.8-8.1); Sodium 137 mmol/L (136-145)
[2023-09-30] MEDS: Midodrine HCl 5 MG TAB PO SCH (09:20)
[2023-09-30] MEDS: Spironolactone 25 MG TAB PO SCH (09:20)
[2023-09-30] MEDS: Lidocaine 4% Patch TD SCH (13:31)
[2023-09-30 13:53] LABS: Fluid, Protein 3.1 g/dL (Not Available)
[2023-09-30] MEDS: Transdermal Patch Removal TOP SCH (20:18)
[2023-10-01 04:26] LABS: #Basophils Less than 0.03 10x3/uL (0.0-0.2); %Basophils 0.3 % (0.0-1.0); %Eosinophils 2.1 % (0.0-10.0); %Lymphocytes 20.8 % (21.0-51.0); %Monocytes 11.8 % (0.0-10.0); %Neutrophils 64.7 % (42.0-75.0); Hematocrit 32.8 % (42.0-52.0); Hemoglobin 11.3 g/dL (14.0-18.0); Mean Corpuscular HGB CONC 34.5 g/dL (32.0-36.0); Mean Corpuscular Hemoglobin 29.1 pg (27.0-31.0); Mean Corpuscular Volume 84.5 fL (78.0-98.0); Platelet Count 177 10x3/uL (130-400); RBC Distribution Width 19.5 % (11.5-14.5); Red Blood Cell (RBC) Count 3.88 mill/uL (4.70-6.10)
[2023-10-01 04:45] LABS: ALT (SGPT) 19 U/L (8-55); AST (SGOT) 34 U/L (5-34); Alkaline Phosphatase 188 U/L (40-110); Anion Gap 13 mmol/L (10-20); BUN (Urea Nitrogen) 24 mg/dL (8.4-25.7); Bilirubin, Total 1.2 mg/dL (0.2-1.2); Calc. Creatinine Clearance 62 mL/min (70-130); Calcium 9.3 mg/dL (7.8-10.44); Carbon Dioxide 26 mmol/L (23-31); Chloride 102 mmol/L (98-107); Estimated GFR 51; Globulin 3.2 g/dL (2.4-3.5); Glucose 96 mg/dL (80-115); Potassium 4.2 mmol/L (3.5-5.1); Protein, Total 6.2 g/dL (5.8-8.1); Sodium 137 mmol/L (136-145)
[2023-10-01] MEDS: Lidocaine 4% Patch TD SCH (09:10)
[2023-10-01] MEDS: Torsemide 20 MG TAB PO SCH (13:55)
[2023-10-01] MEDS: Benzonatate 100 MG CAP PO PRN (23:47)
[2023-10-01] MEDS: GUAIFENESIN SF SOLN 200 MG/10 ML UDCUP PO PRN (23:47)
[2023-10-02 00:12] LABS: CMV DNA-PCR Test Negative (Negative)
[2023-10-02 04:53] LABS: #Basophils Less than 0.03 10x3/uL (0.0-0.2); %Basophils 0.3 % (0.0-1.0); %Eosinophils 2.2 % (0.0-10.0); %Lymphocytes 21.9 % (21.0-51.0); %Monocytes 14.9 % (0.0-10.0); %Neutrophils 60.4 % (42.0-75.0); Hematocrit 32.1 % (42.0-52.0); Mean Corpuscular HGB CONC 34.3 g/dL (32.0-36.0); Mean Corpuscular Hemoglobin 28.7 pg (27.0-31.0); Mean Corpuscular Volume 83.8 fL (78.0-98.0); Mean Platelet Volume 10.7 fL (7.4-10.4); Platelet Count 195 10x3/uL (130-400); RBC Distribution Width 19.7 % (11.5-14.5); Red Blood Cell (RBC) Count 3.83 mill/uL (4.70-6.10)
[2023-10-02 05:16] LABS: ALT (SGPT) 25 U/L (8-55); AST (SGOT) 44 U/L (5-34); Albumin 3.1 g/dL (3.4-4.8); Alkaline Phosphatase 221 U/L (40-110); Anion Gap 14 mmol/L (10-20); BUN (Urea Nitrogen) 21 mg/dL (8.4-25.7); Bilirubin, Total 1.2 mg/dL (0.2-1.2); Calc. Creatinine Clearance 64 mL/min (70-130); Calcium 9.3 mg/dL (7.8-10.44); Carbon Dioxide 26 mmol/L (23-31); Chloride 102 mmol/L (98-107); Estimated GFR 53; Globulin 3.4 g/dL (2.4-3.5); Glucose 94 mg/dL (80-115); Potassium 4.2 mmol/L (3.5-5.1); Protein, Total 6.5 g/dL (5.8-8.1); Sodium 138 mmol/L (136-145)
[2023-10-02] MEDS: Sacubitril 24MG/Valsartan 26 MG TAB PO SCH (10:11)
[2023-10-02] MEDS ORDERED: Calcium Carbonate 500 MG ChewTAB PO SCH (10:45)
[2023-10-02 10:56] VITALS: BP 107/61; TEMP 97.5
[2023-10-02] MEDS: Loperamide HCl 2 MG CAP PO SCH (11:31)
[2023-10-02] MEDS: Furosemide 40 MG (4 mL) VIAL SLOW IVP SCH (11:34)
[2023-10-02] MEDS ORDERED: Carvedilol 3.125 MG TAB PO SCH (17:00)
== END 2023-10-02 12:00 | disposition home or self-care (01) | DRG 432 ==
LOC: ERS 18:31 → ERHOLD 09-28 00:15 → OBSVTOIN 09-28 09:49 → 2NO 09-28 17:53
PROVIDERS: ADMIT Family Medicine; ATTEND Internal Medicine
PROC: 5A09357 Assistance with Respiratory Ventilation, Less than 24 Consecutive Hours, Continuous Positive Airway Pressure (ICD-10-PCS; 2023-09-28)
PROC: 30233J1 Transfusion of Nonautologous Serum Albumin into Peripheral Vein, Percutaneous Approach (ICD-10-PCS; 2023-09-29)
PROC: 0W9G3ZZ Drainage of Peritoneal Cavity, Percutaneous Approach (ICD-10-PCS; principal; 2023-09-30)
DX: K74.60 Unspecified cirrhosis of liver (principal); G93.41 Metabolic encephalopathy; I21.A1 Myocardial infarction type 2; I50.43 Acute on chronic combined systolic (congestive) and diastolic (congestive) heart failure; I13.0 Hypertensive heart and chronic kidney disease with heart failure and stage 1 through stage 4 chronic kidney disease, or unspecified chronic kidney disease; R18.8 Other ascites; N39.0 Urinary tract infection, site not specified; N18.4 Chronic kidney disease, stage 4 (severe); N17.9 Acute kidney failure, unspecified; K76.82 Hepatic encephalopathy; I25.10 Atherosclerotic heart disease of native coronary artery without angina pectoris; R26.81 Unsteadiness on feet; W19.XXXA Unspecified fall, initial encounter; S09.90XA Unspecified injury of head, initial encounter; I25.5 Ischemic cardiomyopathy; I95.9 Hypotension, unspecified; E78.5 Hyperlipidemia, unspecified; K21.9 Gastro-esophageal reflux disease without esophagitis; G47.33 Obstructive sleep apnea (adult) (pediatric); D63.1 Anemia in chronic kidney disease; K76.89 Other specified diseases of liver; I25.2 Old myocardial infarction; Z95.1 Presence of aortocoronary bypass graft; Z79.899 Other long term (current) drug therapy; Z91.148 Patient's other noncompliance with medication regimen for other reason
CPT/HCPCS: 36415; 36416; 49083; 70450; 71045; 72100; 74177; 76705; 80053; 80061; 80074; 80306; 80307; 81001; 82043; 82140; 82728; 82805; 83036; 83540; 83550; 83605; 83615; 83735; 83880; 84157; 84300; 84443; 84466; 84484; 84540; 85025; 85610; 85730; 86780; 87070; 87077; 87086; 87186; 87205; 87389; 87497; 93005; 93010; 93306; 96374; 96375; J0696; J1650; J1940; J2270; J2405; J2916; J3490; J7050; P9047